=== PATIENT | female | born 1975 | race Caucasian/White ===

== ENCOUNTER → 2017-06-16 | Outpatient (CLI) | payer OTHER ==
[~2017-06-16] MED LIST: ACET325; ACET325 PO; ACYC400 PO; ALBIPROI; ALBIPROI INH; ALBU.083IS; ALBU.083IS IH; ALBU3IS INH; ALBU90OI; ALBU90OI INH; ALBU90OI6; ALBU90OI6 INH; AMIT10 PO; AMLO5; AMOCLA875 PO; AMOX500 PO; ANASTRAZOLE PO; ANTOXYBENA BOTHEARS; AZIT250 PO; BACL10 PO; BECL40OI INH; BENZ100A PO; BISA5EC PO; BUSP10; BUSP15 PO; BUSPAR; CEPH500 PO; CHEMO PO; CIME400; CIPR500 PO; CITA20 PO; CLIN300 PO; CLON.1 PO; CLON.2 PO; CLON1; CYCL10 PO; Clonidine HCl0.2 MG PO; Crutch1 EACH MISC; DEXGUASY PO; DIAZ5 PO; DICY20; DICY20 PO; DIPH50 PO; DOXY100 PO; DULO60 PO; EFFEXOR; ERYT.5TO BOTHEYES; ERYT.5TO OS; ESOM20; EXEM25 PO; FAMO20 PO; FLUO20 PO; FLUT220OIA IH; GABA300 PO; GABA400; GABA400 PO; GABA800 PO; GUAI120S1 PO; HYDACE5 PO; HYDCOR2.5C PR; HYDGUAL120 PO; HYDPAM50; HYDPAM50 PO; IBUP200 PO; IBUP600 PO; IBUP800 PO; IPRAIS NEB; KETO10 PO; Keflex500 MG PO; LETR2.5 PO; LORA.5 PO; LORA1 PO; LORA2; LORA2 PO; MAGCIT300 PO; MARIJUANA IN; METPRE4DP PO; METR250 PO; MICO100S VAG; MIRT30; MONT10T; MONT10T PO; NAPR500 PO; NEURONTIN; Naprosyn500 MG PO; OLAN10; OLAN5; OMEP20ER; OMEP20ER PO; OXYACE5T; OXYACE5T PO; OXYC5 PO; PANT40 PO; POLTRIOPSO OS; PRED10 PO; PRED20; PRED20 PO; PROM25; PROM25 PO; PSEU120ER PO; Percocet 10-321 EACH PO; Prednisone20 MG PO; RXCYCL10 PO; RXERYTOPTH OP; RXNEOPOLHC AD; RXOXYACE PO; RXTRAM50 PO; SIMBACORT; SULFAMETHOXAZOLE; SULTRIDS PO; SYMBACORT INHALER; SYMBICORT INH; TAMO10; TAMO10 PO; TOBR.3OPSO BOTHEYES; TRAM50 PO; TRAZ100; TRAZADONE; TRIA80TC TOP; Ultram50 MG PO; VENL75ER; VICODIN 5-3001 EACH; WITHAZ50T TOP; Zithromax250 MG PO; [UNRECOGNIZED DRUG - OTHER] PO
[2017-06-18 04:36] LABS: MDA Not Detected (NOTDET); MDEA Not Detected (NOTDET); MDMA Not Detected (NOTDET)
== END ==
LOC: LAB 15:40
PROVIDERS: Psychiatry & Neurology Psychiatry
DX: F15.10 Other stimulant abuse, uncomplicated (principal)
CPT/HCPCS: G0480

== ENCOUNTER 2017-08-24 19:40 | Emergency (ER) | payer OTHER ==
[~2017-08-24] VITALS: Ht 167.6 cm; Wt 81.7 kg
== END 2017-08-24 21:37 | disposition home or self-care (01) ==
LOC: ER 19:40
DX: F15.10 Other stimulant abuse, uncomplicated (principal); J45.909 Unspecified asthma, uncomplicated; K21.9 Gastro-esophageal reflux disease without esophagitis; F31.9 Bipolar disorder, unspecified; G43.909 Migraine, unspecified, not intractable, without status migrainosus; F17.210 Nicotine dependence, cigarettes, uncomplicated; Z88.0 Allergy status to penicillin; Z88.2 Allergy status to sulfonamides; Z91.040 Latex allergy status; Z88.8 Allergy status to other drugs, medicaments and biological substances; Z79.899 Other long term (current) drug therapy
CPT/HCPCS: 96372; 99283; J1200; J1630; J2060

== ENCOUNTER 2017-12-05 16:13 | Emergency (ER) | payer OTHER ==
[~2017-12-05] VITALS: Ht 167.6 cm; Wt 79.4 kg
== END 2017-12-05 16:58 | disposition home or self-care (01) ==
LOC: ER 16:13
DX: G43.909 Migraine, unspecified, not intractable, without status migrainosus (principal); J45.909 Unspecified asthma, uncomplicated; K21.9 Gastro-esophageal reflux disease without esophagitis; F31.9 Bipolar disorder, unspecified; F17.210 Nicotine dependence, cigarettes, uncomplicated; Z79.899 Other long term (current) drug therapy; Z79.51 Long term (current) use of inhaled steroids
CPT/HCPCS: 96374; 96375; 99283-25; J0780; J1200; J1885

== ENCOUNTER 2019-01-10 15:24 | Emergency (ER) | payer OTHER ==
[~2019-01-10] VITALS: Ht 167.6 cm; Wt 93.0 kg
[2019-01-10] MEDS ORDERED: Mupirocin22 GM PO (16:11)
[2019-01-10] MEDS ORDERED: Vibramycin100 MG PO (16:11)
== END 2019-01-10 16:30 | disposition home or self-care (01) ==
LOC: ER 15:24
DX: H93.8X1 Other specified disorders of right ear (principal); J45.909 Unspecified asthma, uncomplicated; F43.10 Post-traumatic stress disorder, unspecified; F31.9 Bipolar disorder, unspecified; Z85.3 Personal history of malignant neoplasm of breast; Z87.891 Personal history of nicotine dependence; Z88.8 Allergy status to other drugs, medicaments and biological substances; Z88.1 Allergy status to other antibiotic agents; Z88.0 Allergy status to penicillin; Z91.048 Other nonmedicinal substance allergy status; Z91.040 Latex allergy status; Z88.2 Allergy status to sulfonamides; Z91.018 Allergy to other foods; Z79.899 Other long term (current) drug therapy; Z79.52 Long term (current) use of systemic steroids
CPT/HCPCS: 99282

== ENCOUNTER 2019-01-20 15:17 | Emergency (ER) | payer OTHER ==
[~2019-01-20] VITALS: Ht 167.6 cm; Wt 90.7 kg
[~2019-01-20 15:17] MED LIST changes: +Mupirocin22 GM PO; +Vibramycin100 MG PO
[2019-01-20 15:57] LABS: Source, Urine Clean Catch
[2019-01-20 16:02] LABS: BASOPHILS ABSOLUTE AUTO 0.04 K/mm3 (0.00-0.23); BASOPHILS PERCENT AUTO 0 % (0-2); EOSINOPHILS ABSOLUTE AUTO 0.08 K/mm3 (0.00-0.68); EOSINOPHILS PERCENT AUTO 1 % (0-6); Hemoglobin 14.2 g/dL (11.5-16.0); IMMATURE GRAN PERCENT AUTO 1 % (0-1); LYMPHOCYTES ABSOLUTE AUTO 3.09 K/mm3 (0.84-5.20); LYMPHOCYTES PERCENT AUTO 18 % (21-46); MONOCYTES ABSOLUTE AUTO 1.09 K/mm3 (0.16-1.47); MONOCYTES PERCENT AUTO 6 % (4-13); Mean Corpuscular HGB 29.8 pg (26.0-34.0); Mean Corpuscular Volume 90 fL (80-100); Mean Platelet Volume 9.6 fL (9.1-12.4); NEUTROPHILS ABSOLUTE AUTO 13.08 K/mm3 (1.96-9.15); NEUTROPHILS PERCENT AUTO 75 % (41-73); Platelet Count 363 K/mm3 (150-400); RDW Coefficient Variation 14.3 % (11.7-14.2); RDW Standard Deviation 47.3 fL (35.1-46.3); Red Blood Cell Count 4.77 M/mm3 (3.80-5.20); White Blood Cell Count 17.48 K/mm3 (4.00-11.30)
[2019-01-20 16:07] LABS: Bilirubin, Urine Neg (Neg); Blood, Urine 1+ (Neg); Glucose Qualitative, Urine Neg (Neg); Ketones, Urine 2+ (Neg); Leukocyte Esterase, Urine Neg (Neg); Nitrite, Urine Neg (Neg); Protein, Urine 1+ (Neg); Urobilinogen, Urine NORM (Normal)
[2019-01-20 16:34] LABS: Appearance, Urine Hazy (Clear); Color, Urine Yellow (P-Yellow)
[2019-01-20 16:38] LABS: Alanine Aminotransfer (ALT/SGP 19 U/L (12-78); Albumin, Blood 3.8 g/dL (3.4-5.0); Albumin/Globulin Ratio 0.9 (0.8-1.8); Alk Phos 181 U/L (50-136); Anion Gap 8 mmol/L (6-16); Aspartate Aminotrans (AST/SGOT 14 U/L (12-37); Bilirubin, Total 0.5 mg/dL (0.1-1.0); Blood Urea Nitrogen 11 mg/dL (8-24); Bun/Creatinine Ratio 15.2 (12.0-20.0); CO2, Blood 21 mmol/L (21-32); Calcium, Blood 9.5 mg/dL (8.5-10.1); Chloride, Blood 110 mmol/L (98-108); Creatinine, Blood 0.72 mg/dL (0.40-1.00); Globulin, Blood 4.4 g/dL (2.2-4.0); Glomerular Filtration Rate >60 (60-); Glucose, Blood 148 mg/dL (70-99); Potassium, Blood 3.1 mmol/L (3.5-5.5); Sodium, Blood 139 mmol/L (136-145); Total Protein, Blood 8.2 g/dL (6.4-8.2)
[2019-01-20 16:40] LABS: Bacteria Many /hpf; Squamous Epithelial Cells Mod /hpf (Few); White Blood Cells, Urine 0-2 /hpf (0-5)
[2019-01-20 16:41] LABS: Amorphous Light (0-Heavy); Mucus Light (0-Heavy)
[2019-01-20 18:49] LABS: LDL Direct Measurement 84 mg/dL (0-130); Lactate Dehydrogenase (Ld),Bld 181 U/L (100-240); Triglycerides 80 mg/dL (30-160)
[2019-01-20] MEDS ORDERED: ONDA8 MM (19:12)
[2019-01-20] MEDS ORDERED: Roxicodone5 MG PO ×2 (19:12→19:23)
== END 2019-01-20 19:28 | disposition home or self-care (01) ==
LOC: ER 15:17
PROVIDERS: Emergency Medicine; Physician Assistant
DX: K85.90 Acute pancreatitis without necrosis or infection, unspecified (principal); E87.6 Hypokalemia; J45.909 Unspecified asthma, uncomplicated; F17.200 Nicotine dependence, unspecified, uncomplicated; Z85.3 Personal history of malignant neoplasm of breast; Z88.8 Allergy status to other drugs, medicaments and biological substances; Z88.1 Allergy status to other antibiotic agents; Z88.0 Allergy status to penicillin; Z91.040 Latex allergy status; Z88.2 Allergy status to sulfonamides; Z91.02 Food additives allergy status; Z79.899 Other long term (current) drug therapy
CPT/HCPCS: 74177; 80053; 81001; 81025; 83615; 83690; 83721; 83735; 84478; 85025; 87086; 96374; 99284-25; J2405; Q9967

== ENCOUNTER 2019-01-22 14:13 | Emergency (ER) | payer OTHER ==
[~2019-01-22] VITALS: Ht 167.6 cm; Wt 90.7 kg
[~2019-01-22 14:13] MED LIST changes: +ONDA8 MM; +Roxicodone5 MG PO
[2019-01-22 14:57] LABS: BASOPHILS ABSOLUTE AUTO 0.04 K/mm3 (0.00-0.23); BASOPHILS PERCENT AUTO 0 % (0-2); EOSINOPHILS ABSOLUTE AUTO 0.12 K/mm3 (0.00-0.68); EOSINOPHILS PERCENT AUTO 1 % (0-6); Hematocrit 40.6 % (33.0-51.0); Hemoglobin 13.4 g/dL (11.5-16.0); IMMATURE GRAN ABSOLUTE AUTO 0.06 K/mm3 (0.00-0.10); IMMATURE GRAN PERCENT AUTO 0 % (0-1); LYMPHOCYTES ABSOLUTE AUTO 2.11 K/mm3 (0.84-5.20); LYMPHOCYTES PERCENT AUTO 13 % (21-46); MONOCYTES ABSOLUTE AUTO 1.22 K/mm3 (0.16-1.47); MONOCYTES PERCENT AUTO 7 % (4-13); Mean Corpuscular HGB 29.6 pg (26.0-34.0); Mean Corpuscular Volume 90 fL (80-100); Mean Platelet Volume 9.5 fL (9.1-12.4); NEUTROPHILS ABSOLUTE AUTO 12.93 K/mm3 (1.96-9.15); NEUTROPHILS PERCENT AUTO 79 % (41-73); Platelet Count 312 K/mm3 (150-400); RDW Coefficient Variation 14.3 % (11.7-14.2); Red Blood Cell Count 4.52 M/mm3 (3.80-5.20); White Blood Cell Count 16.48 K/mm3 (4.00-11.30)
[2019-01-22 15:14] LABS: Alanine Aminotransfer (ALT/SGP 30 U/L (12-78); Albumin, Blood 3.5 g/dL (3.4-5.0); Albumin/Globulin Ratio 0.7 (0.8-1.8); Alk Phos 195 U/L (50-136); Anion Gap 6 mmol/L (6-16); Aspartate Aminotrans (AST/SGOT 22 U/L (12-37); Bilirubin, Total 0.5 mg/dL (0.1-1.0); Blood Urea Nitrogen 10 mg/dL (8-24); Bun/Creatinine Ratio 13.7 (12.0-20.0); CO2, Blood 26 mmol/L (21-32); Calcium, Blood 8.9 mg/dL (8.5-10.1); Chloride, Blood 101 mmol/L (98-108); Creatinine, Blood 0.73 mg/dL (0.40-1.00); Globulin, Blood 4.7 g/dL (2.2-4.0); Glomerular Filtration Rate >60 (60-); Glucose, Blood 180 mg/dL (70-99); Potassium, Blood 2.7 mmol/L (3.5-5.5); Sodium, Blood 133 mmol/L (136-145); Total Protein, Blood 8.2 g/dL (6.4-8.2)
[2019-01-22] MEDS ORDERED: Zofran8 MG PO (19:03)
[2019-01-22] MEDS ORDERED: Percocet 5-3251 EACH PO (19:03)
== END 2019-01-22 19:45 | disposition home or self-care (01) ==
LOC: ER 14:13
PROVIDERS: Physician Assistant
DX: K85.90 Acute pancreatitis without necrosis or infection, unspecified (principal); J45.909 Unspecified asthma, uncomplicated; K21.9 Gastro-esophageal reflux disease without esophagitis; F31.9 Bipolar disorder, unspecified; F43.10 Post-traumatic stress disorder, unspecified; Z85.3 Personal history of malignant neoplasm of breast; Z87.891 Personal history of nicotine dependence; Z88.8 Allergy status to other drugs, medicaments and biological substances; Z88.1 Allergy status to other antibiotic agents; Z88.0 Allergy status to penicillin; Z91.048 Other nonmedicinal substance allergy status; Z91.040 Latex allergy status; Z88.2 Allergy status to sulfonamides; Z91.02 Food additives allergy status; Z79.899 Other long term (current) drug therapy
CPT/HCPCS: 36415; 80053; 83690; 85025; 96374; 96375; 99284-25; A9270; A9270-GY; J1170; J2550; J7120

== ENCOUNTER → 2019-02-03 | Outpatient (CLI) | payer OTHER ==
[~2019-02-03] MED LIST changes: +Percocet 5-3251 EACH PO; +Zofran8 MG PO
== END | disposition home or self-care (01) ==
LOC: LAB SHORT 09:46 → LAB UCHC 09:46 → EDSTATUS 02-02 12:25 → LAB FUT 02-02 12:25
DX: K85.90 Acute pancreatitis without necrosis or infection, unspecified (principal); R19.7 Diarrhea, unspecified
CPT/HCPCS: 87493

== ENCOUNTER 2019-02-13 19:11 | Emergency (ER) | payer OTHER ==
[~2019-02-13] VITALS: Ht 167.6 cm; Wt 90.7 kg
[2019-02-13 19:55] LABS: Source, Urine Clean Catch
[2019-02-13 19:59] LABS: BASOPHILS ABSOLUTE AUTO 0.04 K/mm3 (0.00-0.23); BASOPHILS PERCENT AUTO 1 % (0-2); EOSINOPHILS ABSOLUTE AUTO 0.16 K/mm3 (0.00-0.68); EOSINOPHILS PERCENT AUTO 2 % (0-6); Hematocrit 39.5 % (33.0-51.0); Hemoglobin 12.7 g/dL (11.5-16.0); IMMATURE GRAN ABSOLUTE AUTO 0.01 K/mm3 (0.00-0.10); IMMATURE GRAN PERCENT AUTO 0 % (0-1); LYMPHOCYTES ABSOLUTE AUTO 2.87 K/mm3 (0.84-5.20); LYMPHOCYTES PERCENT AUTO 34 % (21-46); MONOCYTES ABSOLUTE AUTO 0.61 K/mm3 (0.16-1.47); MONOCYTES PERCENT AUTO 7 % (4-13); Mean Corpuscular HGB 29.3 pg (26.0-34.0); Mean Corpuscular HGB Conc 32.2 g/dL (31.5-36.5); Mean Corpuscular Volume 91 fL (80-100); Mean Platelet Volume 9.7 fL (9.1-12.4); NEUTROPHILS ABSOLUTE AUTO 4.77 K/mm3 (1.96-9.15); NEUTROPHILS PERCENT AUTO 56 % (41-73); Platelet Count 327 K/mm3 (150-400); RDW Coefficient Variation 14.4 % (11.7-14.2); Red Blood Cell Count 4.33 M/mm3 (3.80-5.20); White Blood Cell Count 8.46 K/mm3 (4.00-11.30)
[2019-02-13 20:00] LABS: Bilirubin, Urine Neg (Neg); Blood, Urine Neg (Neg); Glucose Qualitative, Urine Neg (Neg); Ketones, Urine Neg (Neg); Leukocyte Esterase, Urine Neg (Neg); Nitrite, Urine Neg (Neg); Protein, Urine Neg (Neg); Specific Gravity, Urine 1.005 (1.003-1.022); Urobilinogen, Urine NORM (Normal)
[2019-02-13 20:02] LABS: Appearance, Urine Clear (Clear); Color, Urine Yellow (P-Yellow)
[2019-02-13 20:18] LABS: Alanine Aminotransfer (ALT/SGP 46 U/L (12-78); Albumin, Blood 3.8 g/dL (3.4-5.0); Albumin/Globulin Ratio 0.9 (0.8-1.8); Alk Phos 149 U/L (50-136); Anion Gap 7 mmol/L (6-16); Aspartate Aminotrans (AST/SGOT 31 U/L (12-37); Bilirubin, Total 0.3 mg/dL (0.1-1.0); Blood Urea Nitrogen 10 mg/dL (8-24); Bun/Creatinine Ratio 11.9 (12.0-20.0); CO2, Blood 22 mmol/L (21-32); Calcium, Blood 9.1 mg/dL (8.5-10.1); Chloride, Blood 108 mmol/L (98-108); Creatinine, Blood 0.84 mg/dL (0.40-1.00); Globulin, Blood 4.1 g/dL (2.2-4.0); Glomerular Filtration Rate >60 (60-); Glucose, Blood 114 mg/dL (70-99); Potassium, Blood 3.2 mmol/L (3.5-5.5); Sodium, Blood 137 mmol/L (136-145); Total Protein, Blood 7.9 g/dL (6.4-8.2)
[2019-02-13 20:45] LABS: Troponin I <0.015 ng/mL (0.000-0.040)
== END 2019-02-14 00:35 | disposition home or self-care (01) ==
LOC: ER 19:11
PROVIDERS: Physician Assistant
DX: K85.90 Acute pancreatitis without necrosis or infection, unspecified (principal); J45.909 Unspecified asthma, uncomplicated; F17.210 Nicotine dependence, cigarettes, uncomplicated; Z85.3 Personal history of malignant neoplasm of breast; Z88.8 Allergy status to other drugs, medicaments and biological substances; Z88.1 Allergy status to other antibiotic agents; Z88.0 Allergy status to penicillin; Z91.048 Other nonmedicinal substance allergy status; Z91.040 Latex allergy status; Z79.899 Other long term (current) drug therapy
CPT/HCPCS: 36415; 76705; 80053; 81003; 81025; 83690; 84484; 85025; 93005; 93010; 96361; 96374; 99284-25; A9270; J2270; J7030

== ENCOUNTER → 2019-10-05 | Outpatient (CLI) | payer OTHER ==
[2019-10-05 12:21] LABS: Adenovirus F 40/41 Not Detected (NOT DETECT); Astrovirus Not Detected (NOT DETECT); Campylobacter Sp Not Detected (NOT DETECT); Cryptosporidium Not Detected (NOT DETECT); Cyclospora Cayetanensis Not Detected (NOT DETECT); E. Coli O157 Not Detected (NOT DETECT); Entamoeba Histolytica Not Detected (NOT DETECT); Enteroaggregative E. coli-EAEC Not Detected (NOT DETECT); Enteropathogenic E. coli-EPEC Not Detected (NOT DETECT); Enterotoxigenic E. coli-ETEC Not Detected (NOT DETECT); Giardia Lamblia Not Detected (NOT DETECT); Norovirus GI/GII Not Detected (NOT DETECT); Plesiomonas Shigelloides Not Detected (NOT DETECT); Rotavirus A Not Detected (NOT DETECT); Salmonella Sp Not Detected (NOT DETECT); Sapovirus Not Detected (NOT DETECT); Shiga Toxin-prod E. coli-STEC Not Detected (NOT DETECT); Shigella/Enteroin E. coli-EIEC Not Detected (NOT DETECT); Vibrio Cholerae Not Detected (NOT DETECT); Vibrio Sp Not Detected (NOT DETECT); Yersinia Enterocolitica Not Detected (NOT DETECT)
== END | disposition home or self-care (01) ==
LOC: LAB 09:27 → LAB SHORT 09:27 → LAB FUT 10-03 17:45
PROVIDERS: Physician Assistant
DX: R10.13 Epigastric pain (principal)
CPT/HCPCS: 0097U; 87338

== ENCOUNTER 2019-10-11 17:09 | Emergency (ER) | payer OTHER ==
[~2019-10-11] VITALS: Ht 167.6 cm; Wt 90.7 kg
[2019-10-11 18:09] LABS: BASOPHILS ABSOLUTE AUTO 0.08 K/mm3 (0.00-0.23); BASOPHILS PERCENT AUTO 1 % (0-2); EOSINOPHILS ABSOLUTE AUTO 0.26 K/mm3 (0.00-0.68); EOSINOPHILS PERCENT AUTO 2 % (0-6); Hematocrit 41.1 % (33.0-51.0); Hemoglobin 13.2 g/dL (11.5-16.0); IMMATURE GRAN ABSOLUTE AUTO 0.08 K/mm3 (0.00-0.10); IMMATURE GRAN PERCENT AUTO 1 % (0-1); LYMPHOCYTES PERCENT AUTO 27 % (21-46); MONOCYTES ABSOLUTE AUTO 1.02 K/mm3 (0.16-1.47); MONOCYTES PERCENT AUTO 6 % (4-13); Mean Corpuscular HGB 29.1 pg (26.0-34.0); Mean Corpuscular HGB Conc 32.1 g/dL (31.5-36.5); Mean Corpuscular Volume 91 fL (80-100); Mean Platelet Volume 9.3 fL (9.1-12.4); NEUTROPHILS ABSOLUTE AUTO 11.29 K/mm3 (1.96-9.15); NEUTROPHILS PERCENT AUTO 64 % (41-73); Platelet Count 390 K/mm3 (150-400); RDW Coefficient Variation 14.5 % (11.7-14.2); RDW Standard Deviation 47.9 fL (35.1-46.3); Red Blood Cell Count 4.53 M/mm3 (3.80-5.20); White Blood Cell Count 17.53 K/mm3 (4.00-11.30)
[2019-10-11] MEDS ORDERED: CLON.5 PO (18:30)
[2019-10-11 18:38] LABS: Alanine Aminotransfer (ALT/SGP 28 U/L (12-78); Albumin, Blood 4.2 g/dL (3.4-5.0); Alk Phos 158 U/L (50-136); Anion Gap 10 mmol/L (6-16); Aspartate Aminotrans (AST/SGOT 20 U/L (12-37); Bilirubin, Total 0.3 mg/dL (0.1-1.0); Blood Urea Nitrogen 6 mg/dL (8-24); Bun/Creatinine Ratio 6.7 (12.0-20.0); CO2, Blood 21 mmol/L (21-32); Calcium, Blood 8.8 mg/dL (8.5-10.1); Chloride, Blood 103 mmol/L (98-108); Creatinine, Blood 0.89 mg/dL (0.40-1.00); Globulin, Blood 4.4 g/dL (2.2-4.0); Glomerular Filtration Rate >60 (60-); Glucose, Blood 130 mg/dL (70-99); Potassium, Blood 3.3 mmol/L (3.5-5.5); Sodium, Blood 134 mmol/L (136-145); Total Protein, Blood 8.6 g/dL (6.4-8.2); Troponin I <0.015 ng/mL (0.000-0.040)
[2019-10-11] MEDS ORDERED: TRAM50 PO (20:14)
[2019-10-11] MEDS ORDERED: METPRE4DP PO (20:14)
== END 2019-10-11 20:21 | disposition home or self-care (01) ==
LOC: ER 17:09
PROVIDERS: Physician Assistant
DX: J45.901 Unspecified asthma with (acute) exacerbation (principal); R09.1 Pleurisy; Z85.3 Personal history of malignant neoplasm of breast; F17.210 Nicotine dependence, cigarettes, uncomplicated; Z88.0 Allergy status to penicillin; Z88.2 Allergy status to sulfonamides; Z91.048 Other nonmedicinal substance allergy status; Z91.040 Latex allergy status; Z91.02 Food additives allergy status; Z88.1 Allergy status to other antibiotic agents; Z79.899 Other long term (current) drug therapy
CPT/HCPCS: 36415; 71045; 80053; 83690; 84484; 85025; 85379; 93005; 93010; 94640; 96374; 96375; 99285-25; J1170; J1885; J2405; J2930

== ENCOUNTER → 2020-02-07 | Outpatient (CLI) | payer OTHER ==
[~2020-02-07] MED LIST changes: +ALBUTEROL0.63 MG/3 NEB; +ATOR40TA PO; +Adalat/Procardi20 MG PO; +CLON.5 PO; +CREON DR 12,001 EACH PO; +CREON DR 24,001 EACH PO; +CYCLOBENZAPRINE5 MG PO; +HYDR1TAB94 PO; +Imitrex100 MG PO; +Lisinopril2.5 MG PO; +Loratadine10 MG PO; +Nicoderm Cq1 EAC1 TOP; +Norco 7.5-3251 EACH PO; +ONDA4ODT MM; +ONDA4ODT SL; +POTCHL20ER PO; +RISP.25 PO; +RISP.5 PO; +TOPI100 PO; +TOPI25 PO
[2020-02-08 06:14] LABS: Stool Occult Bld Immuno 1 Negative (NEGATIVE)
== END | disposition home or self-care (01) ==
LOC: LAB SHORT 13:33 → LAB 13:33
PROVIDERS: Physician Assistant
DX: R10.13 Epigastric pain (principal)
CPT/HCPCS: G0328

== ENCOUNTER 2020-02-23 18:23 | Observation (INO) | payer OTHER ==
[~2020-02-23] VITALS: Ht 167.6 cm; Wt 82.2 kg
[~2020-02-23 18:23] MED LIST changes: -CREON DR 24,001 EACH PO
[2020-02-23 19:07] LABS: BASOPHILS ABSOLUTE AUTO 0.06 K/mm3 (0.00-0.23); BASOPHILS PERCENT AUTO 0 % (0-2); EOSINOPHILS ABSOLUTE AUTO 0.34 K/mm3 (0.00-0.68); EOSINOPHILS PERCENT AUTO 2 % (0-6); Hematocrit 40.6 % (33.0-51.0); IMMATURE GRAN ABSOLUTE AUTO 0.05 K/mm3 (0.00-0.10); IMMATURE GRAN PERCENT AUTO 0 % (0-1); LYMPHOCYTES ABSOLUTE AUTO 3.79 K/mm3 (0.84-5.20); LYMPHOCYTES PERCENT AUTO 25 % (21-46); MONOCYTES PERCENT AUTO 5 % (4-13); Mean Corpuscular HGB 28.9 pg (26.0-34.0); Mean Corpuscular Volume 90 fL (80-100); Mean Platelet Volume 9.8 fL (9.1-12.4); NEUTROPHILS ABSOLUTE AUTO 10.01 K/mm3 (1.96-9.15); NEUTROPHILS PERCENT AUTO 67 % (41-73); Platelet Count 421 K/mm3 (150-400); RDW Standard Deviation 53.6 fL (35.1-46.3); White Blood Cell Count 15.05 K/mm3 (4.00-11.30)
[2020-02-23 19:42] LABS: Magnesium, Blood 0.8 mg/dL (1.6-2.4); Phosphorus, Blood 2.4 mg/dL (2.5-4.9)
--- NOTE | 2020-02-24 04:05 | NUR ---
COOK'S ASSISTANT SUMMARY PT RECEIVED FROM THE ED W KCL AND MAGNESIUM RUNNING. PT SATED THAT SHE WAS STILL HAVING CRAMPS AROUND HER RIBCAGE BUT THAT IT WAS GETTING BETTER. PT RECEIVED 2100 MEDS AND WENT TO BED. PT SLEPT COMFORTABLY W CALL LIGHT IN PLACE. PT IS AXO X4, PLEASANT AND COOPERATIVE.
[2020-02-24 05:49] LABS: Anion Gap 8 mmol/L (6-16); Blood Urea Nitrogen 6 mg/dL (8-24); Bun/Creatinine Ratio 9.5 (12.0-20.0); CO2, Blood 20 mmol/L (21-32); Calcium, Blood 7.7 mg/dL (8.5-10.1); Chloride, Blood 117 mmol/L (98-108); Creatinine, Blood 0.63 mg/dL (0.40-1.00); Glomerular Filtration Rate >60 (60-); Glucose, Blood 138 mg/dL (70-99); Potassium, Blood 3.8 mmol/L (3.5-5.5); Sodium, Blood 145 mmol/L (136-145)
[2020-02-24 06:38] LABS: Magnesium, Blood 2.3 mg/dL (1.6-2.4); Phosphorus, Blood 2.9 mg/dL (2.5-4.9)
[2020-02-24] MEDS ORDERED: CREON DR 24,001 EACH PO (09:17)
--- NOTE | 2020-02-24 13:30 | NUR ---
PT AWAKE AT START OF SHIFT. PLEASANT AND CO-OP. INDEPENDENT IN RM. ADMITTED FOR HYPOMAGNEMIA R/T DIARRHEA; RESOLVED. PT WITH CHRONIC PANCREATITIS, WAITING FOR OUTPT SX APPOINTMENT. DR LIU IN TO SEE PT; NO C/O. PT TO D/C HOME TODAY. DR TOLENTINO IN TO SEE PT. DISCUSSED HOME MANAGEMENT OF DIARRHEA AND CALLING PCP FOR ANY NEEDED LABS OR PO ELECTROLYTES, BEFORE CRITICAL STAGE. PT VERBALIZED UNDERSTANDING. NO NEW HOME MEDS ORDERED. D/C INSTRUCTIONS GIVEN. PT ASSISTED OUT TO CAR VIA W/C.
== END 2020-02-24 13:09 | disposition home or self-care (01) ==
LOC: ER 18:23 → MEDS 18:24 → ENPENDDIS 02-24 11:17 → MEDS 02-24 13:09
PROVIDERS: Internal Medicine; Physician Assistant; ADMIT Hospitalist
DX: E83.42 Hypomagnesemia (principal); R25.2 Cramp and spasm; E83.51 Hypocalcemia; K86.1 Other chronic pancreatitis; K52.9 Noninfective gastroenteritis and colitis, unspecified; J45.909 Unspecified asthma, uncomplicated; K21.9 Gastro-esophageal reflux disease without esophagitis; G43.909 Migraine, unspecified, not intractable, without status migrainosus; F43.10 Post-traumatic stress disorder, unspecified; F17.210 Nicotine dependence, cigarettes, uncomplicated; E78.5 Hyperlipidemia, unspecified; F31.89 Other bipolar disorder; E11.42 Type 2 diabetes mellitus with diabetic polyneuropathy; I10 Essential (primary) hypertension; M54.30 Sciatica, unspecified side; Z85.3 Personal history of malignant neoplasm of breast; Z90.13 Acquired absence of bilateral breasts and nipples; Z90.49 Acquired absence of other specified parts of digestive tract; Z88.0 Allergy status to penicillin; Z88.1 Allergy status to other antibiotic agents; Z88.2 Allergy status to sulfonamides; Z91.040 Latex allergy status; Z91.02 Food additives allergy status; Z88.8 Allergy status to other drugs, medicaments and biological substances; Z91.048 Other nonmedicinal substance allergy status; Z91.041 Radiographic dye allergy status; Z79.899 Other long term (current) drug therapy; Z23 Encounter for immunization
CPT/HCPCS: 36415; 80048; 82330; 82947; 83735; 84100; 85025; 93005; 93010; 94760; 96365; 96366; 96367; 96368; 96372; 99284-25; A9270-GY; G0008; G0378; J1650; J3475; J3480; J7030; J7060; Q2038

== ENCOUNTER 2020-03-19 19:23 | Emergency (ER) | payer OTHER ==
[~2020-03-19] VITALS: Ht 167.6 cm; Wt 81.7 kg
[~2020-03-19 19:23] MED LIST changes: +CREON DR 24,001 EACH PO
[2020-03-19 20:08] LABS: BASOPHILS ABSOLUTE AUTO 0.04 K/mm3 (0.00-0.23); BASOPHILS PERCENT AUTO 0 % (0-2); EOSINOPHILS ABSOLUTE AUTO 0.52 K/mm3 (0.00-0.68); EOSINOPHILS PERCENT AUTO 4 % (0-6); Hematocrit 36.8 % (33.0-51.0); Hemoglobin 12.1 g/dL (11.5-16.0); IMMATURE GRAN ABSOLUTE AUTO 0.04 K/mm3 (0.00-0.10); IMMATURE GRAN PERCENT AUTO 0 % (0-1); LYMPHOCYTES ABSOLUTE AUTO 3.84 K/mm3 (0.84-5.20); LYMPHOCYTES PERCENT AUTO 31 % (21-46); MONOCYTES ABSOLUTE AUTO 0.72 K/mm3 (0.16-1.47); MONOCYTES PERCENT AUTO 6 % (4-13); Mean Corpuscular HGB 29.4 pg (26.0-34.0); Mean Corpuscular HGB Conc 32.9 g/dL (31.5-36.5); Mean Corpuscular Volume 90 fL (80-100); Mean Platelet Volume 9.9 fL (9.1-12.4); NEUTROPHILS ABSOLUTE AUTO 7.06 K/mm3 (1.96-9.15); NEUTROPHILS PERCENT AUTO 58 % (41-73); Platelet Count 333 K/mm3 (150-400); RDW Coefficient Variation 16.1 % (11.7-14.2); Red Blood Cell Count 4.11 M/mm3 (3.80-5.20); White Blood Cell Count 12.22 K/mm3 (4.00-11.30)
[2020-03-19 20:26] LABS: Alanine Aminotransfer (ALT/SGP 17 U/L (12-78); Albumin, Blood 3.3 g/dL (3.4-5.0); Albumin/Globulin Ratio 0.8 (0.8-1.8); Alk Phos 164 U/L (50-136); Anion Gap 9 mmol/L (6-16); Aspartate Aminotrans (AST/SGOT 13 U/L (12-37); Bilirubin, Total 0.3 mg/dL (0.1-1.0); Blood Urea Nitrogen 9 mg/dL (8-24); Bun/Creatinine Ratio 11.8 (12.0-20.0); CO2, Blood 24 mmol/L (21-32); Calcium, Blood 8.3 mg/dL (8.5-10.1); Chloride, Blood 110 mmol/L (98-108); Creatinine, Blood 0.76 mg/dL (0.40-1.00); Globulin, Blood 3.9 g/dL (2.2-4.0); Glomerular Filtration Rate >60 (60-); Glucose, Blood 174 mg/dL (70-99); Potassium, Blood 3.1 mmol/L (3.5-5.5); Sodium, Blood 143 mmol/L (136-145); Total Protein, Blood 7.2 g/dL (6.4-8.2)
[2020-03-19 22:51] LABS: Anion Gap 7 mmol/L (6-16); Blood Urea Nitrogen 9 mg/dL (8-24); Bun/Creatinine Ratio 12.6 (12.0-20.0); CO2, Blood 22 mmol/L (21-32); Calcium, Blood 8.6 mg/dL (8.5-10.1); Chloride, Blood 112 mmol/L (98-108); Creatinine, Blood 0.71 mg/dL (0.40-1.00); Glomerular Filtration Rate >60 (60-); Glucose, Blood 116 mg/dL (70-99); Magnesium, Blood 2.2 mg/dL (1.6-2.4); Potassium, Blood 4.2 mmol/L (3.5-5.5); Sodium, Blood 141 mmol/L (136-145)
[2020-03-19] MEDS ORDERED: MAGNESIUM OXID400 M1 PO (23:03)
== END 2020-03-19 23:33 | disposition home or self-care (01) ==
LOC: ER 19:23
PROVIDERS: Emergency Medicine
DX: E87.6 Hypokalemia (principal); E83.42 Hypomagnesemia; K52.9 Noninfective gastroenteritis and colitis, unspecified; K21.9 Gastro-esophageal reflux disease without esophagitis; F31.9 Bipolar disorder, unspecified; E11.9 Type 2 diabetes mellitus without complications; J44.9 Chronic obstructive pulmonary disease, unspecified; F17.210 Nicotine dependence, cigarettes, uncomplicated; Z79.899 Other long term (current) drug therapy; Z88.8 Allergy status to other drugs, medicaments and biological substances; Z88.0 Allergy status to penicillin; Z91.09 Other allergy status, other than to drugs and biological substances; Z91.040 Latex allergy status; Z88.2 Allergy status to sulfonamides; Z91.041 Radiographic dye allergy status
CPT/HCPCS: 36415; 80048; 80053; 83690; 83735; 85025; 93005; 93010; 96365; 96366; 99283-25; A9270; J3475

== ENCOUNTER 2020-05-22 08:14 | Emergency (ER) | payer OTHER ==
[~2020-05-22] VITALS: Ht 167.6 cm; Wt 81.7 kg
[~2020-05-22 08:14] MED LIST changes: +MAGNESIUM OXID400 M1 PO
[2020-05-22] MEDS ORDERED: Chantix1 MG PO (08:33)
[2020-05-22 08:56] LABS: BASOPHILS ABSOLUTE AUTO 0.05 K/mm3 (0.00-0.23); BASOPHILS PERCENT AUTO 1 % (0-2); EOSINOPHILS ABSOLUTE AUTO 0.33 K/mm3 (0.00-0.68); EOSINOPHILS PERCENT AUTO 4 % (0-6); Hematocrit 39.3 % (33.0-51.0); IMMATURE GRAN ABSOLUTE AUTO 0.02 K/mm3 (0.00-0.10); IMMATURE GRAN PERCENT AUTO 0 % (0-1); LYMPHOCYTES ABSOLUTE AUTO 2.61 K/mm3 (0.84-5.20); LYMPHOCYTES PERCENT AUTO 33 % (21-46); MONOCYTES ABSOLUTE AUTO 0.63 K/mm3 (0.16-1.47); MONOCYTES PERCENT AUTO 8 % (4-13); Mean Corpuscular HGB Conc 33.1 g/dL (31.5-36.5); Mean Corpuscular Volume 91 fL (80-100); Mean Platelet Volume 9.5 fL (9.1-12.4); NEUTROPHILS ABSOLUTE AUTO 4.24 K/mm3 (1.96-9.15); NEUTROPHILS PERCENT AUTO 54 % (41-73); Platelet Count 342 K/mm3 (150-400); RDW Coefficient Variation 15.8 % (11.7-14.2); RDW Standard Deviation 52.1 fL (35.1-46.3); Red Blood Cell Count 4.34 M/mm3 (3.80-5.20); White Blood Cell Count 7.88 K/mm3 (4.00-11.30)
[2020-05-22 09:17] LABS: Alanine Aminotransfer (ALT/SGP 26 U/L (12-78); Albumin, Blood 3.6 g/dL (3.4-5.0); Albumin/Globulin Ratio 0.8 (0.8-1.8); Alk Phos 151 U/L (50-136); Anion Gap 11 mmol/L (6-16); Aspartate Aminotrans (AST/SGOT 18 U/L (12-37); Bilirubin, Total 0.2 mg/dL (0.1-1.0); Blood Urea Nitrogen 9 mg/dL (8-24); Bun/Creatinine Ratio 14.7 (12.0-20.0); CO2, Blood 19 mmol/L (21-32); Calcium, Blood 8.9 mg/dL (8.5-10.1); Chloride, Blood 104 mmol/L (98-108); Creatinine, Blood 0.61 mg/dL (0.40-1.00); Globulin, Blood 4.3 g/dL (2.2-4.0); Glomerular Filtration Rate >60 (60-); Glucose, Blood 291 mg/dL (70-99); Magnesium, Blood 1.8 mg/dL (1.6-2.4); Potassium, Blood 4.2 mmol/L (3.5-5.5); Sodium, Blood 134 mmol/L (136-145); Total Protein, Blood 7.9 g/dL (6.4-8.2)
== END 2020-05-22 10:37 | disposition home or self-care (01) ==
LOC: ER 08:14
PROVIDERS: Emergency Medicine
DX: R25.2 Cramp and spasm (principal); R42 Dizziness and giddiness; J44.9 Chronic obstructive pulmonary disease, unspecified; K21.9 Gastro-esophageal reflux disease without esophagitis; E11.9 Type 2 diabetes mellitus without complications; Z88.0 Allergy status to penicillin; Z88.1 Allergy status to other antibiotic agents; Z91.040 Latex allergy status; Z88.2 Allergy status to sulfonamides; Z88.8 Allergy status to other drugs, medicaments and biological substances; Z91.02 Food additives allergy status; Z91.09 Other allergy status, other than to drugs and biological substances; Z79.899 Other long term (current) drug therapy
CPT/HCPCS: 36415; 80053; 83735; 84100; 85025; 93005; 93010; 99284-25

== ENCOUNTER 2020-06-18 19:29 | Emergency (ER) | payer OTHER ==
[~2020-06-18] VITALS: Ht 167.6 cm; Wt 81.7 kg
[~2020-06-18 19:29] MED LIST changes: +Chantix1 MG PO
[2020-06-18 20:36] LABS: Hematocrit 38.2 % (33.0-51.0); Hemoglobin 12.8 g/dL (11.5-16.0); Mean Corpuscular HGB 29.7 pg (26.0-34.0); Mean Corpuscular HGB Conc 33.5 g/dL (31.5-36.5); Mean Corpuscular Volume 89 fL (80-100); Mean Platelet Volume 9.6 fL (9.1-12.4); Platelet Count 362 K/mm3 (150-400); RDW Coefficient Variation 15.2 % (11.7-14.2); RDW Standard Deviation 49.8 fL (35.1-46.3); Red Blood Cell Count 4.31 M/mm3 (3.80-5.20); White Blood Cell Count 14.07 K/mm3 (4.00-11.30)
[2020-06-18 20:58] LABS: Alanine Aminotransfer (ALT/SGP 23 U/L (12-78); Albumin, Blood 3.9 g/dL (3.4-5.0); Albumin/Globulin Ratio 0.9 (0.8-1.8); Alk Phos 130 U/L (50-136); Anion Gap 7 mmol/L (6-16); Aspartate Aminotrans (AST/SGOT 12 U/L (12-37); Bilirubin, Total 0.3 mg/dL (0.1-1.0); Blood Urea Nitrogen 11 mg/dL (8-24); Bun/Creatinine Ratio 13.8 (12.0-20.0); CO2, Blood 25 mmol/L (21-32); Calcium, Blood 8.5 mg/dL (8.5-10.1); Chloride, Blood 106 mmol/L (98-108); Globulin, Blood 4.2 g/dL (2.2-4.0); Glomerular Filtration Rate >60 (60-); Glucose, Blood 164 mg/dL (70-99); Potassium, Blood 3.3 mmol/L (3.5-5.5); Sodium, Blood 138 mmol/L (136-145); Total Protein, Blood 8.1 g/dL (6.4-8.2)
[2020-06-18 21:03] LABS: Magnesium, Blood 0.7 mg/dL (1.6-2.4)
[2020-06-18 21:36] LABS: BASOPHILS ABSOLUTE MAN 0.14 K/mm3 (0.00-0.23); BASOPHILS PERCENT MAN 1 % (0-2); EOSINOPHILS ABSOLUTE MAN 0.42 K/mm3 (0.00-0.68); EOSINOPHILS PERCENT MAN 3 % (0-6); LYMPHOCYTES ABSOLUTE MAN 3.51 K/mm3 (0.84-5.20); LYMPHOCYTES PERCENT MAN 25 % (21-46); MONOCYTES PERCENT MAN 5 % (4-13); NEUTROPHILS ABSOLUTE MAN 9.28 K/mm3 (1.96-9.15); SEG NEUTROPHILS PERCENT MAN 66 % (41-73); TOTAL CELLS COUNTED 100
[2020-06-18 21:55] LABS: Source, Urine Clean Catch
[2020-06-18 21:56] LABS: Bilirubin, Urine Neg (Neg); Blood, Urine Neg (Neg); Glucose Qualitative, Urine Neg (Neg); Ketones, Urine Neg (Neg); Leukocyte Esterase, Urine Neg (Neg); Nitrite, Urine Neg (Neg); Protein, Urine Neg (Neg); Specific Gravity, Urine 1.005 (1.003-1.022); Urobilinogen, Urine NORM (Normal); pH, Urine 6.5 (5.0-8.0)
[2020-06-18 22:05] LABS: Appearance, Urine Clear (Clear); Color, Urine Pale Yellow (P-Yellow)
[2020-06-19] MEDS ORDERED: HYDR1TAB94 PO (00:57)
[2020-06-19] MEDS ORDERED: ONDA4ODT SL (00:57)
[2020-06-19] MEDS ORDERED: Magnesium500 M1 PO (00:57)
== END 2020-06-19 01:28 | disposition home or self-care (01) ==
LOC: ER 19:29
PROVIDERS: Emergency Medicine; Physician Assistant
DX: K86.1 Other chronic pancreatitis (principal); E83.42 Hypomagnesemia; K21.9 Gastro-esophageal reflux disease without esophagitis; J44.9 Chronic obstructive pulmonary disease, unspecified; E11.9 Type 2 diabetes mellitus without complications; Z79.899 Other long term (current) drug therapy; Z88.0 Allergy status to penicillin; Z91.09 Other allergy status, other than to drugs and biological substances; Z91.040 Latex allergy status; Z88.2 Allergy status to sulfonamides; Z88.1 Allergy status to other antibiotic agents; Z91.02 Food additives allergy status; Z87.891 Personal history of nicotine dependence
CPT/HCPCS: 36415; 71250; 80048; 80053; 81003; 83690; 83735; 85025; 96365; 96366; 96375; 99284-25; J1170; J2405; J3475

== ENCOUNTER 2020-07-31 08:06 | Day surgery (SDC) | payer OTHER ==
[~2020-07-31] VITALS: Ht 167.6 cm; Wt 81.7 kg
[~2020-07-31 08:06] MED LIST changes: +Magnesium500 M1 PO
--- NOTE | 2020-07-31 08:43 | NUR ---
07/31/20 0843 Pepe Cotter History, Chart, Medications and Allergies reviewed before start of procedure.MONITOR INTACT WITH CONTINUOUS PULSE OXIMETRY AND INTERMITTENT BP.3-LEAD EKG REVIEWED WITH PHYSICIAN PRIOR TO START OF PROCEDURE.O2 VIA N/C INTACT THROUGHOUT SEDATION/PROCEDURE. PATIENT DETERMINED TO BE ASA APPROPRIATE FOR PROPOFOL SEDATION PRIOR TO START OF PROCEDURE BY DR. FRIAS.
--- NOTE | 2020-07-31 09:53 | NUR ---
Patient up to Ambulate independently. Gait steady. Discharge instructions reviewed with patient. Patient verbalizes understanding. Copy given to patient to take home. Discharged via wheelchair to private car for ride home WITH
== END 2020-07-31 09:57 | disposition home or self-care (01) ==
LOC: ORSCMMR 08:06 → ORD 09:00 → ORSCMMR 09:57
PROVIDERS: Internal Medicine Gastroenterology
PROC: 0DBN8ZX Excision of Sigmoid Colon, Via Natural or Artificial Opening Endoscopic, Diagnostic (ICD-10-PCS; principal; 2020-07-31 09:00)
PROC: 0DBK8ZX Excision of Ascending Colon, Via Natural or Artificial Opening Endoscopic, Diagnostic (ICD-10-PCS; principal; 2020-07-31 09:00)
PROC: 0DBL8ZX Excision of Transverse Colon, Via Natural or Artificial Opening Endoscopic, Diagnostic (ICD-10-PCS; principal; 2020-07-31 09:00)
DX: R19.7 Diarrhea, unspecified (principal); K57.30 Diverticulosis of large intestine without perforation or abscess without bleeding; E11.9 Type 2 diabetes mellitus without complications; R10.9 Unspecified abdominal pain; F17.210 Nicotine dependence, cigarettes, uncomplicated; Z79.899 Other long term (current) drug therapy
CPT/HCPCS: 82947; 88305; J2250; J2405; J2704; J7120

== ENCOUNTER 2020-12-06 09:30 | Emergency (ER) | payer OTHER ==
[~2020-12-06] VITALS: Ht 167.6 cm; Wt 79.4 kg
[2020-12-06 10:26] LABS: BASOPHILS ABSOLUTE AUTO 0.03 K/mm3 (0.00-0.23); BASOPHILS PERCENT AUTO 0 % (0-2); EOSINOPHILS ABSOLUTE AUTO 0.27 K/mm3 (0.00-0.68); EOSINOPHILS PERCENT AUTO 3 % (0-6); Hemoglobin 12.9 g/dL (11.5-16.0); IMMATURE GRAN ABSOLUTE AUTO 0.01 K/mm3 (0.00-0.10); IMMATURE GRAN PERCENT AUTO 0 % (0-1); LYMPHOCYTES ABSOLUTE AUTO 2.44 K/mm3 (0.84-5.20); LYMPHOCYTES PERCENT AUTO 30 % (21-46); MONOCYTES ABSOLUTE AUTO 0.53 K/mm3 (0.16-1.47); MONOCYTES PERCENT AUTO 6 % (4-13); Mean Corpuscular HGB 28.6 pg (26.0-34.0); Mean Corpuscular HGB Conc 33.1 g/dL (31.5-36.5); Mean Corpuscular Volume 87 fL (80-100); NEUTROPHILS ABSOLUTE AUTO 4.99 K/mm3 (1.96-9.15); NEUTROPHILS PERCENT AUTO 60 % (41-73); Platelet Count 316 K/mm3 (150-400); RDW Standard Deviation 47.4 fL (35.1-46.3); Red Blood Cell Count 4.51 M/mm3 (3.80-5.20); White Blood Cell Count 8.27 K/mm3 (4.00-11.30)
[2020-12-06 13:06] LABS: Alanine Aminotransfer (ALT/SGP 26 U/L (12-78); Albumin, Blood 3.4 g/dL (3.4-5.0); Albumin/Globulin Ratio 0.8 (0.8-1.8); Alk Phos 167 U/L (50-136); Anion Gap 11 mmol/L (6-16); Aspartate Aminotrans (AST/SGOT 12 U/L (12-37); Bilirubin, Total 0.4 mg/dL (0.1-1.0); Blood Urea Nitrogen 6 mg/dL (8-24); Bun/Creatinine Ratio 7.9 (12.0-20.0); CO2, Blood 23 mmol/L (21-32); Calcium, Blood 7.3 mg/dL (8.5-10.1); Chloride, Blood 107 mmol/L (98-108); Creatinine, Blood 0.76 mg/dL (0.40-1.00); Globulin, Blood 4.4 g/dL (2.2-4.0); Glomerular Filtration Rate >60 (60-); Glucose, Blood 211 mg/dL (70-99); Potassium, Blood 3.5 mmol/L (3.5-5.5); Sodium, Blood 141 mmol/L (136-145); Total Protein, Blood 7.8 g/dL (6.4-8.2); Troponin I <0.015 ng/mL (0.000-0.040)
[2020-12-06] MEDS ORDERED: MAGNESIUM OXID500 MG PO (16:35)
[2021-01-06] MEDS ORDERED: ONDA4ODT MM (10:51)
[2021-01-06] MEDS ORDERED: Norco 5-325 Ta1 EACH PO (10:51)
== END 2020-12-06 17:15 | disposition home or self-care (01) ==
LOC: ER 09:30
PROVIDERS: Emergency Medicine
DX: E83.42 Hypomagnesemia (principal); K86.1 Other chronic pancreatitis; K52.9 Noninfective gastroenteritis and colitis, unspecified; R53.83 Other fatigue; K21.9 Gastro-esophageal reflux disease without esophagitis; J44.9 Chronic obstructive pulmonary disease, unspecified; E11.9 Type 2 diabetes mellitus without complications; Z88.8 Allergy status to other drugs, medicaments and biological substances; Z88.1 Allergy status to other antibiotic agents; Z88.0 Allergy status to penicillin; Z91.040 Latex allergy status; Z91.018 Allergy to other foods; Z79.899 Other long term (current) drug therapy; Z91.048 Other nonmedicinal substance allergy status; Z87.891 Personal history of nicotine dependence
CPT/HCPCS: 36415; 71046; 80053; 83690; 83735; 84484; 85025; 93005; 93010; 96365; 96366; 99283-25; A9270; J3475; J7030

== ENCOUNTER 2021-01-10 18:34 | Emergency (ER) | payer OTHER ==
[~2021-01-10] VITALS: Ht 167.6 cm; Wt 79.4 kg
[~2021-01-10 18:34] MED LIST changes: +MAGNESIUM OXID500 MG PO; +Norco 5-325 Ta1 EACH PO
[2021-01-10 18:58] LABS: BASOPHILS ABSOLUTE AUTO 0.04 K/mm3 (0.00-0.23); BASOPHILS PERCENT AUTO 0 % (0-2); EOSINOPHILS PERCENT AUTO 3 % (0-6); Hematocrit 37.8 % (33.0-51.0); Hemoglobin 12.6 g/dL (11.5-16.0); IMMATURE GRAN ABSOLUTE AUTO 0.03 K/mm3 (0.00-0.10); IMMATURE GRAN PERCENT AUTO 0 % (0-1); LYMPHOCYTES ABSOLUTE AUTO 3.98 K/mm3 (0.84-5.20); LYMPHOCYTES PERCENT AUTO 36 % (21-46); MONOCYTES PERCENT AUTO 5 % (4-13); Mean Corpuscular HGB 29.1 pg (26.0-34.0); Mean Corpuscular HGB Conc 33.3 g/dL (31.5-36.5); Mean Corpuscular Volume 87 fL (80-100); Mean Platelet Volume 9.6 fL (9.1-12.4); NEUTROPHILS ABSOLUTE AUTO 6.06 K/mm3 (1.96-9.15); NEUTROPHILS PERCENT AUTO 55 % (41-73); Platelet Count 323 K/mm3 (150-400); RDW Coefficient Variation 15.7 % (11.7-14.2); RDW Standard Deviation 49.8 fL (35.1-46.3); Red Blood Cell Count 4.33 M/mm3 (3.80-5.20); White Blood Cell Count 11.01 K/mm3 (4.00-11.30)
[2021-01-10 19:22] LABS: Alanine Aminotransfer (ALT/SGP 18 U/L (12-78); Albumin, Blood 3.2 g/dL (3.4-5.0); Albumin/Globulin Ratio 0.8 (0.8-1.8); Alk Phos 168 U/L (50-136); Anion Gap 5 mmol/L (6-16); Aspartate Aminotrans (AST/SGOT 21 U/L (12-37); Bilirubin, Total 0.3 mg/dL (0.1-1.0); Blood Urea Nitrogen 5 mg/dL (8-24); Bun/Creatinine Ratio 6.8 (12.0-20.0); CO2, Blood 22 mmol/L (21-32); Calcium, Blood 7.5 mg/dL (8.5-10.1); Chloride, Blood 112 mmol/L (98-108); Creatinine, Blood 0.74 mg/dL (0.40-1.00); Globulin, Blood 4.2 g/dL (2.2-4.0); Glomerular Filtration Rate >60 (60-); Glucose, Blood 205 mg/dL (70-99); Potassium, Blood 3.6 mmol/L (3.5-5.5); Sodium, Blood 139 mmol/L (136-145); Total Protein, Blood 7.4 g/dL (6.4-8.2)
[2021-01-10 21:09] LABS: Troponin I <0.015 ng/mL (0.000-0.040)
[2021-01-10] MEDS ORDERED: ONDA4ODT MM (21:53)
== END 2021-01-10 22:13 | disposition home or self-care (01) ==
LOC: ER 18:34
PROVIDERS: Physician Assistant
DX: K85.90 Acute pancreatitis without necrosis or infection, unspecified (principal); K86.1 Other chronic pancreatitis; J44.9 Chronic obstructive pulmonary disease, unspecified; E11.9 Type 2 diabetes mellitus without complications; K21.9 Gastro-esophageal reflux disease without esophagitis; G43.909 Migraine, unspecified, not intractable, without status migrainosus; Z87.891 Personal history of nicotine dependence; Z79.899 Other long term (current) drug therapy
CPT/HCPCS: 36415; 74177; 80053; 83690; 84484; 85025; 93005; 93010; 96374-59; 96375; 99284-25; A9270; J2405; J3010; J7030; Q9967

== ENCOUNTER 2021-01-16 19:04 | Emergency (ER) | payer OTHER ==
[~2021-01-16] VITALS: Ht 167.6 cm; Wt 76.2 kg
[2021-01-16 20:02] LABS: Alanine Aminotransfer (ALT/SGP 19 U/L (12-78); Albumin, Blood 3.2 g/dL (3.4-5.0); Albumin/Globulin Ratio 0.8 (0.8-1.8); Alk Phos 160 U/L (50-136); Anion Gap 3 mmol/L (6-16); Aspartate Aminotrans (AST/SGOT 15 U/L (12-37); Bilirubin, Total 0.2 mg/dL (0.1-1.0); Blood Urea Nitrogen 10 mg/dL (8-24); Bun/Creatinine Ratio 12.4 (12.0-20.0); CO2, Blood 24 mmol/L (21-32); Calcium, Blood 7.7 mg/dL (8.5-10.1); Chloride, Blood 111 mmol/L (98-108); Globulin, Blood 3.9 g/dL (2.2-4.0); Glomerular Filtration Rate >60 (60-); Glucose, Blood 257 mg/dL (70-99); Potassium, Blood 3.7 mmol/L (3.5-5.5); Sodium, Blood 138 mmol/L (136-145); Total Protein, Blood 7.1 g/dL (6.4-8.2)
[2021-01-16 20:04] LABS: Magnesium, Blood 1.1 mg/dL (1.6-2.4)
== END 2021-01-17 00:22 | disposition home or self-care (01) ==
LOC: ER 19:04
PROVIDERS: Emergency Medicine Emergency Medical Services
DX: E83.42 Hypomagnesemia (principal); E83.51 Hypocalcemia; K21.9 Gastro-esophageal reflux disease without esophagitis; J44.9 Chronic obstructive pulmonary disease, unspecified; E11.9 Type 2 diabetes mellitus without complications; Z88.8 Allergy status to other drugs, medicaments and biological substances; Z88.1 Allergy status to other antibiotic agents; Z88.0 Allergy status to penicillin; Z91.048 Other nonmedicinal substance allergy status; Z88.2 Allergy status to sulfonamides; Z79.899 Other long term (current) drug therapy; Z87.891 Personal history of nicotine dependence
CPT/HCPCS: 36415; 80053; 83735; 96365; 99283-25; J0610; J3475

== ENCOUNTER 2021-01-24 19:03 | Emergency (ER) | payer OTHER ==
[~2021-01-24] VITALS: Ht 167.6 cm; Wt 77.1 kg
[2021-01-24 19:45] LABS: BASOPHILS ABSOLUTE AUTO 0.05 K/mm3 (0.00-0.23); BASOPHILS PERCENT AUTO 0 % (0-2); EOSINOPHILS ABSOLUTE AUTO 0.27 K/mm3 (0.00-0.68); EOSINOPHILS PERCENT AUTO 2 % (0-6); Hematocrit 40.3 % (33.0-51.0); Hemoglobin 13.1 g/dL (11.5-16.0); IMMATURE GRAN ABSOLUTE AUTO 0.03 K/mm3 (0.00-0.10); IMMATURE GRAN PERCENT AUTO 0 % (0-1); LYMPHOCYTES ABSOLUTE AUTO 3.91 K/mm3 (0.84-5.20); LYMPHOCYTES PERCENT AUTO 28 % (21-46); MONOCYTES ABSOLUTE AUTO 0.86 K/mm3 (0.16-1.47); MONOCYTES PERCENT AUTO 6 % (4-13); Mean Corpuscular HGB 28.8 pg (26.0-34.0); Mean Corpuscular HGB Conc 32.5 g/dL (31.5-36.5); Mean Corpuscular Volume 89 fL (80-100); Mean Platelet Volume 9.4 fL (9.1-12.4); NEUTROPHILS ABSOLUTE AUTO 8.77 K/mm3 (1.96-9.15); NEUTROPHILS PERCENT AUTO 63 % (41-73); Platelet Count 400 K/mm3 (150-400); RDW Coefficient Variation 15.5 % (11.7-14.2); RDW Standard Deviation 50.6 fL (35.1-46.3); Red Blood Cell Count 4.55 M/mm3 (3.80-5.20); White Blood Cell Count 13.89 K/mm3 (4.00-11.30)
[2021-01-24 19:57] LABS: Alanine Aminotransfer (ALT/SGP 69 U/L (12-78); Albumin, Blood 3.2 g/dL (3.4-5.0); Albumin/Globulin Ratio 0.7 (0.8-1.8); Alk Phos 223 U/L (50-136); Anion Gap 7 mmol/L (6-16); Aspartate Aminotrans (AST/SGOT 183 U/L (12-37); Bilirubin, Total 0.3 mg/dL (0.1-1.0); Blood Urea Nitrogen 9 mg/dL (8-24); CO2, Blood 25 mmol/L (21-32); Calcium, Blood 9.8 mg/dL (8.5-10.1); Chloride, Blood 104 mmol/L (98-108); Creatinine, Blood 0.75 mg/dL (0.40-1.00); Globulin, Blood 4.6 g/dL (2.2-4.0); Glomerular Filtration Rate >60 (60-); Glucose, Blood 171 mg/dL (70-99); Potassium, Blood 3.5 mmol/L (3.5-5.5); Sodium, Blood 136 mmol/L (136-145); Total Protein, Blood 7.8 g/dL (6.4-8.2)
== END 2021-01-24 22:25 | disposition home or self-care (01) ==
LOC: ER 19:03
PROVIDERS: Physician Assistant
DX: K85.90 Acute pancreatitis without necrosis or infection, unspecified (principal); K86.1 Other chronic pancreatitis; K86.89 Other specified diseases of pancreas; D72.829 Elevated white blood cell count, unspecified; J44.9 Chronic obstructive pulmonary disease, unspecified; K21.9 Gastro-esophageal reflux disease without esophagitis; E11.9 Type 2 diabetes mellitus without complications; Z88.8 Allergy status to other drugs, medicaments and biological substances; Z88.1 Allergy status to other antibiotic agents; Z88.0 Allergy status to penicillin; Z91.048 Other nonmedicinal substance allergy status; Z91.040 Latex allergy status; Z91.02 Food additives allergy status; Z79.899 Other long term (current) drug therapy; Z87.891 Personal history of nicotine dependence; Z90.49 Acquired absence of other specified parts of digestive tract
CPT/HCPCS: 36415; 80053; 83690; 85025; 93005; 93010; 96374; 96375; 99284-25; J1170; J2405; J7030

== ENCOUNTER → 2021-02-04 | Outpatient (CLI) | payer OTHER ==
[~2021-02-04] MED LIST changes: +INSULANPEN SC; +PERCOCET PO
== END | disposition home or self-care (01) ==
LOC: LAB 11:37 → LAB SHORT 11:37
DX: R19.7 Diarrhea, unspecified (principal)
CPT/HCPCS: 87015; 87045; 87046; 87205; 87899

== ENCOUNTER → 2021-02-06 | Outpatient (CLI) | payer OTHER ==
[2021-02-08 14:05] LABS: C DIFFICILE DNA NEGATIVE (Negative)
== END | disposition home or self-care (01) ==
LOC: LAB SHORT 11:42
PROVIDERS: Physician Assistant
DX: R19.7 Diarrhea, unspecified (principal)
CPT/HCPCS: 87338; 87493

== ENCOUNTER 2021-02-21 10:04 | Emergency (ER) | payer OTHER ==
[~2021-02-21] VITALS: Ht 167.6 cm; Wt 75.8 kg
== END 2021-02-21 13:40 | disposition home or self-care (01) ==
LOC: ER 10:04
DX: E83.42 Hypomagnesemia (principal); R10.9 Unspecified abdominal pain; J44.9 Chronic obstructive pulmonary disease, unspecified; K21.9 Gastro-esophageal reflux disease without esophagitis; E11.9 Type 2 diabetes mellitus without complications; G43.909 Migraine, unspecified, not intractable, without status migrainosus; Z88.2 Allergy status to sulfonamides; Z91.040 Latex allergy status; Z88.0 Allergy status to penicillin; Z88.8 Allergy status to other drugs, medicaments and biological substances; Z79.4 Long term (current) use of insulin; Z79.899 Other long term (current) drug therapy
CPT/HCPCS: 36415; 93005; 93010; 96365; 96366; 99283; A9270; J3475; J7030

== ENCOUNTER → 2021-02-22 | Outpatient (CLI) | payer OTHER | LOC: OLS 23:55 → LAB SHORT 23:55 → EDSTATUS 02-08 14:00 → LAB FUT 02-08 14:00 | DX: R19.7 Diarrhea, unspecified (principal); Z88.0 Allergy status to penicillin; Z88.1 Allergy status to other antibiotic agents; Z88.2 Allergy status to sulfonamides; Z88.8 Allergy status to other drugs, medicaments and biological substances; Z91.02 Food additives allergy status; Z91.048 Other nonmedicinal substance allergy status; Z91.040 Latex allergy status | CPT/HCPCS: 87177; 87209 ==

== ENCOUNTER 2021-02-27 13:36 | Emergency (ER) | payer OTHER ==
[~2021-02-27] VITALS: Ht 167.6 cm; Wt 75.8 kg
[2021-02-27 14:16] LABS: Hematocrit 39.8 % (33.0-51.0); Hemoglobin 12.8 g/dL (11.5-16.0); Mean Corpuscular HGB 28.8 pg (26.0-34.0); Mean Corpuscular HGB Conc 32.2 g/dL (31.5-36.5); Mean Corpuscular Volume 89 fL (80-100); Mean Platelet Volume 9.8 fL (9.1-12.4); Platelet Count 439 K/mm3 (150-400); RDW Coefficient Variation 15.9 % (11.7-14.2); RDW Standard Deviation 52.1 fL (35.1-46.3); Red Blood Cell Count 4.45 M/mm3 (3.80-5.20); White Blood Cell Count 9.18 K/mm3 (4.00-11.30)
[2021-02-27 14:36] LABS: BASOPHILS PERCENT MAN 0 % (0-2); EOSINOPHILS ABSOLUTE MAN 0.09 K/mm3 (0.00-0.68); EOSINOPHILS PERCENT MAN 1 % (0-6); LYMPHOCYTES ABSOLUTE MAN 3.94 K/mm3 (0.84-5.20); LYMPHOCYTES PERCENT MAN 43 % (21-46); MONOCYTES ABSOLUTE MAN 0.36 K/mm3 (0.16-1.47); MONOCYTES PERCENT MAN 4 % (4-13); NEUTROPHILS ABSOLUTE MAN 4.77 K/mm3 (1.96-9.15); SEG NEUTROPHILS PERCENT MAN 52 % (41-73); TOTAL CELLS COUNTED 100
[2021-02-27 14:50] LABS: Alanine Aminotransfer (ALT/SGP 20 U/L (12-78); Albumin, Blood 3.2 g/dL (3.4-5.0); Albumin/Globulin Ratio 0.7 (0.8-1.8); Alk Phos 141 U/L (50-136); Anion Gap 4 mmol/L (6-16); Aspartate Aminotrans (AST/SGOT 16 U/L (12-37); Bilirubin, Total 0.3 mg/dL (0.1-1.0); Blood Urea Nitrogen 6 mg/dL (8-24); Bun/Creatinine Ratio 7.7 (12.0-20.0); CO2, Blood 22 mmol/L (21-32); Calcium, Blood 9.1 mg/dL (8.5-10.1); Chloride, Blood 109 mmol/L (98-108); Creatinine, Blood 0.78 mg/dL (0.40-1.00); Globulin, Blood 4.6 g/dL (2.2-4.0); Glomerular Filtration Rate >60 (60-); Glucose, Blood 168 mg/dL (70-99); Potassium, Blood 3.7 mmol/L (3.5-5.5); Sodium, Blood 135 mmol/L (136-145); Total Protein, Blood 7.8 g/dL (6.4-8.2)
[2021-02-27 15:01] LABS: Magnesium, Blood 0.8 mg/dL (1.6-2.4)
== END 2021-02-27 19:22 | disposition home or self-care (01) ==
LOC: ER 13:36
PROVIDERS: Physician Assistant
DX: E83.42 Hypomagnesemia (principal); G89.29 Other chronic pain; R10.10 Upper abdominal pain, unspecified; Z88.0 Allergy status to penicillin; Z88.2 Allergy status to sulfonamides; Z91.040 Latex allergy status; Z88.1 Allergy status to other antibiotic agents; Z88.8 Allergy status to other drugs, medicaments and biological substances; Z91.02 Food additives allergy status; Z91.048 Other nonmedicinal substance allergy status; Z79.4 Long term (current) use of insulin; Z79.899 Other long term (current) drug therapy; J44.9 Chronic obstructive pulmonary disease, unspecified; K21.9 Gastro-esophageal reflux disease without esophagitis; G43.909 Migraine, unspecified, not intractable, without status migrainosus; E11.9 Type 2 diabetes mellitus without complications; Z87.891 Personal history of nicotine dependence
CPT/HCPCS: 36415; 80053; 83690; 83735; 85025; 93005; 93010; 96365; 96366; 96375; 99284-25; J1885; J2270; J2405; J3475; J7030

== ENCOUNTER → 2021-06-06 | Outpatient (CLI) | payer OTHER ==
[2021-06-06 19:23] LABS: BASOPHILS ABSOLUTE AUTO 0.05 K/mm3 (0.00-0.23); BASOPHILS PERCENT AUTO 1 % (0-2); EOSINOPHILS ABSOLUTE AUTO 0.37 K/mm3 (0.00-0.68); EOSINOPHILS PERCENT AUTO 4 % (0-6); Hemoglobin 12.4 g/dL (11.5-16.0); IMMATURE GRAN ABSOLUTE AUTO 0.02 K/mm3 (0.00-0.10); IMMATURE GRAN PERCENT AUTO 0 % (0-1); LYMPHOCYTES ABSOLUTE AUTO 3.38 K/mm3 (0.84-5.20); LYMPHOCYTES PERCENT AUTO 35 % (21-46); MONOCYTES ABSOLUTE AUTO 0.56 K/mm3 (0.16-1.47); MONOCYTES PERCENT AUTO 6 % (4-13); Mean Corpuscular HGB 28.1 pg (26.0-34.0); Mean Corpuscular HGB Conc 32.6 g/dL (31.5-36.5); Mean Corpuscular Volume 86 fL (80-100); Mean Platelet Volume 10.1 fL (9.1-12.4); NEUTROPHILS ABSOLUTE AUTO 5.42 K/mm3 (1.96-9.15); NEUTROPHILS PERCENT AUTO 55 % (41-73); Platelet Count 391 K/mm3 (150-400); RDW Standard Deviation 53.5 fL (35.1-46.3); Red Blood Cell Count 4.42 M/mm3 (3.80-5.20)
[2021-06-06 19:55] LABS: Alanine Aminotransfer (ALT/SGP 23 U/L (12-78); Albumin, Blood 3.8 g/dL (3.4-5.0); Alk Phos 145 U/L (50-136); Anion Gap 6 mmol/L (6-16); Aspartate Aminotrans (AST/SGOT 14 U/L (12-37); Bilirubin, Total 0.2 mg/dL (0.1-1.0); Blood Urea Nitrogen 11 mg/dL (8-24); Bun/Creatinine Ratio 12.4 (12.0-20.0); CO2, Blood 24 mmol/L (21-32); Calcium, Blood 8.9 mg/dL (8.5-10.1); Chloride, Blood 110 mmol/L (98-108); Creatinine, Blood 0.88 mg/dL (0.40-1.00); Globulin, Blood 3.8 g/dL (2.2-4.0); Glomerular Filtration Rate >60 (60-); Glucose, Blood 187 mg/dL (70-99); Potassium, Blood 3.7 mmol/L (3.5-5.5); Sodium, Blood 140 mmol/L (136-145); Total Protein, Blood 7.6 g/dL (6.4-8.2)
== END ==
LOC: LAB SHORT 17:15 → LAB 17:15
PROVIDERS: Physician Assistant
DX: K86.1 Other chronic pancreatitis (principal)
CPT/HCPCS: 80053; 83690; 85025

== ENCOUNTER 2021-07-18 18:11 | Emergency (ER) | payer OTHER ==
[~2021-07-18] VITALS: Ht 167.6 cm; Wt 72.6 kg
== END 2021-07-18 20:35 | disposition home or self-care (01) ==
LOC: ER 18:11
DX: S01.81XA Laceration without foreign body of other part of head, initial encounter (principal); S63.614A Unspecified sprain of right ring finger, initial encounter; S90.02XA Contusion of left ankle, initial encounter; S00.11XA Contusion of right eyelid and periocular area, initial encounter; G43.909 Migraine, unspecified, not intractable, without status migrainosus; K21.9 Gastro-esophageal reflux disease without esophagitis; J44.9 Chronic obstructive pulmonary disease, unspecified; E11.9 Type 2 diabetes mellitus without complications; Z79.899 Other long term (current) drug therapy; Z88.0 Allergy status to penicillin; Z91.040 Latex allergy status; Z88.8 Allergy status to other drugs, medicaments and biological substances; Y04.2XXA Assault by strike against or bumped into by another person, initial encounter
CPT/HCPCS: 70450; 72125; 73130; 73610; 90471; 90714; 99284-25; A9270; L0160

== ENCOUNTER 2021-09-26 11:50 | Emergency (ER) | payer OTHER ==
[~2021-09-26] VITALS: Ht 165.1 cm; Wt 77.1 kg
[2021-09-26 12:57] LABS: Albumin, Blood 3.6 g/dL (3.4-5.0); Albumin/Globulin Ratio 0.9 (0.8-1.8); Bilirubin, Total 0.3 mg/dL (0.1-1.0); Bun/Creatinine Ratio 25.5 (12.0-20.0); Calcium, Blood 9.3 mg/dL (8.5-10.1); Creatinine, Blood 0.67 mg/dL (0.40-1.00); Potassium, Blood 3.9 mmol/L (3.5-5.5); Total Protein, Blood 7.6 g/dL (6.4-8.2)
[2021-09-26 13:38] LABS: BASOPHILS ABSOLUTE AUTO 0.05 K/mm3 (0.00-0.23); BASOPHILS PERCENT AUTO 0 % (0-2); EOSINOPHILS ABSOLUTE AUTO 0.31 K/mm3 (0.00-0.68); EOSINOPHILS PERCENT AUTO 2 % (0-6); Hematocrit 31.6 % (33.0-51.0); Hemoglobin 10.5 g/dL (11.5-16.0); IMMATURE GRAN ABSOLUTE AUTO 0.04 K/mm3 (0.00-0.10); IMMATURE GRAN PERCENT AUTO 0 % (0-1); LYMPHOCYTES ABSOLUTE AUTO 2.85 K/mm3 (0.84-5.20); LYMPHOCYTES PERCENT AUTO 23 % (21-46); MONOCYTES ABSOLUTE AUTO 0.83 K/mm3 (0.16-1.47); MONOCYTES PERCENT AUTO 7 % (4-13); Mean Corpuscular HGB 28.6 pg (26.0-34.0); Mean Corpuscular HGB Conc 33.2 g/dL (31.5-36.5); Mean Corpuscular Volume 86 fL (80-100); Mean Platelet Volume 9.7 fL (9.1-12.4); NEUTROPHILS PERCENT AUTO 68 % (41-73); Platelet Count 299 K/mm3 (150-400); RDW Coefficient Variation 14.9 % (11.7-14.2); RDW Standard Deviation 47.4 fL (35.1-46.3); Red Blood Cell Count 3.67 M/mm3 (3.80-5.20); White Blood Cell Count 12.68 K/mm3 (4.00-11.30)
[2021-09-26 13:47] LABS: Source, Urine Clean Catch
[2021-09-26 13:55] LABS: Appearance, Urine Clear (Clear); Bilirubin, Urine Neg (Neg); Blood, Urine Neg (Neg); Color, Urine Yellow (P-Yellow); Glucose Qualitative, Urine 4+ (Neg); Ketones, Urine Neg (Neg); Leukocyte Esterase, Urine Neg (Neg); Nitrite, Urine Neg (Neg); Protein, Urine Neg (Neg); Urobilinogen, Urine NORM (Normal)
== END 2021-09-26 15:13 | disposition home or self-care (01) ==
LOC: ER 11:50
PROVIDERS: Student in an Organized Health Care Education/Training Program
DX: K86.1 Other chronic pancreatitis (principal); Z88.8 Allergy status to other drugs, medicaments and biological substances; Z88.0 Allergy status to penicillin; Z88.1 Allergy status to other antibiotic agents; Z91.040 Latex allergy status; Z91.048 Other nonmedicinal substance allergy status; Z79.899 Other long term (current) drug therapy; Z79.4 Long term (current) use of insulin; Z85.3 Personal history of malignant neoplasm of breast; K21.9 Gastro-esophageal reflux disease without esophagitis; G43.909 Migraine, unspecified, not intractable, without status migrainosus; F43.10 Post-traumatic stress disorder, unspecified; J44.9 Chronic obstructive pulmonary disease, unspecified; E11.9 Type 2 diabetes mellitus without complications; Z87.891 Personal history of nicotine dependence
CPT/HCPCS: 36415; 80053; 81003; 83690; 85025; 93005; 93010; 96361; 96374; 96375; 99284-25; J1885; J2405; J7030

== ENCOUNTER 2021-09-30 13:08 | Emergency (ER) | payer OTHER ==
[~2021-09-30] VITALS: Ht 165.1 cm; Wt 77.1 kg
[2021-09-30 15:21] LABS: Source, Urine Clean Catch
[2021-09-30 15:33] LABS: BASOPHILS ABSOLUTE AUTO 0.04 K/mm3 (0.00-0.23); BASOPHILS PERCENT AUTO 0 % (0-2); EOSINOPHILS PERCENT AUTO 1 % (0-6); Hemoglobin 12.2 g/dL (11.5-16.0); IMMATURE GRAN ABSOLUTE AUTO 0.03 K/mm3 (0.00-0.10); IMMATURE GRAN PERCENT AUTO 0 % (0-1); LYMPHOCYTES ABSOLUTE AUTO 2.13 K/mm3 (0.84-5.20); LYMPHOCYTES PERCENT AUTO 21 % (21-46); MONOCYTES ABSOLUTE AUTO 0.82 K/mm3 (0.16-1.47); MONOCYTES PERCENT AUTO 8 % (4-13); Mean Corpuscular Volume 85 fL (80-100); Mean Platelet Volume 9.4 fL (9.1-12.4); NEUTROPHILS ABSOLUTE AUTO 7.22 K/mm3 (1.96-9.15); NEUTROPHILS PERCENT AUTO 70 % (41-73); Platelet Count 372 K/mm3 (150-400); RDW Coefficient Variation 14.6 % (11.7-14.2); RDW Standard Deviation 45.8 fL (35.1-46.3); Red Blood Cell Count 4.35 M/mm3 (3.80-5.20); White Blood Cell Count 10.34 K/mm3 (4.00-11.30)
[2021-09-30 15:33] LABS: Appearance, Urine Clear (Clear); Bilirubin, Urine Neg (Neg); Blood, Urine Neg (Neg); Color, Urine Yellow (P-Yellow); Glucose Qualitative, Urine Neg (Neg); Ketones, Urine 2+ (Neg); Leukocyte Esterase, Urine Neg (Neg); Nitrite, Urine Neg (Neg); Protein, Urine Neg (Neg); Specific Gravity, Urine 1.015 (1.003-1.022); Urobilinogen, Urine NORM (Normal)
[2021-09-30 15:51] LABS: Albumin, Blood 3.3 g/dL (3.4-5.0); Albumin/Globulin Ratio 0.6 (0.8-1.8); Bilirubin, Total 0.3 mg/dL (0.1-1.0); Bun/Creatinine Ratio 11.5 (12.0-20.0); Calcium, Blood 9.5 mg/dL (8.5-10.1); Creatinine, Blood 0.61 mg/dL (0.40-1.00); Globulin, Blood 5.1 g/dL (2.2-4.0); Potassium, Blood 3.6 mmol/L (3.5-5.5); Total Protein, Blood 8.4 g/dL (6.4-8.2)
== END 2021-09-30 20:27 | disposition home or self-care (01) ==
LOC: ER 13:08
PROVIDERS: Physician Assistant
DX: K85.90 Acute pancreatitis without necrosis or infection, unspecified (principal); K86.1 Other chronic pancreatitis; K59.00 Constipation, unspecified; J44.9 Chronic obstructive pulmonary disease, unspecified; K21.9 Gastro-esophageal reflux disease without esophagitis; E11.9 Type 2 diabetes mellitus without complications; F15.11 Other stimulant abuse, in remission; Z79.899 Other long term (current) drug therapy; Z79.4 Long term (current) use of insulin; Z88.1 Allergy status to other antibiotic agents; Z91.02 Food additives allergy status; Z88.0 Allergy status to penicillin; Z88.2 Allergy status to sulfonamides; Z88.8 Allergy status to other drugs, medicaments and biological substances; Z91.09 Other allergy status, other than to drugs and biological substances
CPT/HCPCS: 36415; 74177; 80053; 81003; 83690; 85025; A9270; J1885; J7030; Q9967

== ENCOUNTER → 2021-10-23 | Outpatient (CLI) | payer OTHER ==
[2021-10-23 13:19] LABS: Bun/Creatinine Ratio 15.7 (12.0-20.0); Calcium, Blood 9.4 mg/dL (8.5-10.1); Creatinine, Blood 0.64 mg/dL (0.40-1.00); Magnesium, Blood 1.4 mg/dL (1.6-2.4)
== END | disposition home or self-care (01) ==
LOC: LAB SHORT 09:35
PROVIDERS: Physician Assistant
DX: E83.42 Hypomagnesemia (principal)
CPT/HCPCS: 80048; 83735

== ENCOUNTER 2021-10-24 08:51 | Emergency (ER) | payer OTHER ==
[~2021-10-24] VITALS: Ht 165.1 cm; Wt 73.5 kg
[2021-10-24 10:08] LABS: BASOPHILS ABSOLUTE AUTO 0.06 K/mm3 (0.00-0.23); BASOPHILS PERCENT AUTO 1 % (0-2); EOSINOPHILS ABSOLUTE AUTO 0.28 K/mm3 (0.00-0.68); EOSINOPHILS PERCENT AUTO 3 % (0-6); Hemoglobin 11.2 g/dL (11.5-16.0); IMMATURE GRAN ABSOLUTE AUTO 0.04 K/mm3 (0.00-0.10); IMMATURE GRAN PERCENT AUTO 0 % (0-1); LYMPHOCYTES ABSOLUTE AUTO 2.47 K/mm3 (0.84-5.20); LYMPHOCYTES PERCENT AUTO 22 % (21-46); MONOCYTES ABSOLUTE AUTO 0.93 K/mm3 (0.16-1.47); MONOCYTES PERCENT AUTO 8 % (4-13); Mean Corpuscular HGB 27.3 pg (26.0-34.0); Mean Corpuscular Volume 85 fL (80-100); Mean Platelet Volume 10.1 fL (9.1-12.4); NEUTROPHILS ABSOLUTE AUTO 7.61 K/mm3 (1.96-9.15); NEUTROPHILS PERCENT AUTO 67 % (41-73); Platelet Count 277 K/mm3 (150-400); RDW Coefficient Variation 15.5 % (11.7-14.2); RDW Standard Deviation 48.5 fL (35.1-46.3); White Blood Cell Count 11.39 K/mm3 (4.00-11.30)
[2021-10-24 10:27] LABS: Albumin, Blood 3.4 g/dL (3.4-5.0); Bilirubin, Total 0.4 mg/dL (0.1-1.0); Bun/Creatinine Ratio 10.7 (12.0-20.0); Calcium, Blood 8.7 mg/dL (8.5-10.1); Creatinine, Blood 0.75 mg/dL (0.40-1.00); Globulin, Blood 3.5 g/dL (2.2-4.0); Magnesium, Blood 1.2 mg/dL (1.6-2.4); Potassium, Blood 3.9 mmol/L (3.5-5.5); Total Protein, Blood 6.9 g/dL (6.4-8.2)
[2021-10-24] MEDS ORDERED: Percocet 5-3251 EACH PO (11:25)
== END 2021-10-24 11:38 | disposition home or self-care (01) ==
LOC: ER 08:51
PROVIDERS: Emergency Medicine
DX: K86.1 Other chronic pancreatitis (principal); R19.7 Diarrhea, unspecified; J44.9 Chronic obstructive pulmonary disease, unspecified; E11.9 Type 2 diabetes mellitus without complications; K21.9 Gastro-esophageal reflux disease without esophagitis; Z79.4 Long term (current) use of insulin; Z88.1 Allergy status to other antibiotic agents; Z79.899 Other long term (current) drug therapy; Z91.040 Latex allergy status; Z88.0 Allergy status to penicillin; Z88.2 Allergy status to sulfonamides; Z88.8 Allergy status to other drugs, medicaments and biological substances; Z91.048 Other nonmedicinal substance allergy status; Z91.02 Food additives allergy status
CPT/HCPCS: 36415; 80053; 83690; 83735; 85025; 96361; 96365; 96375; 99284-25; A9270; J2405; J3475; J7120

== ENCOUNTER 2021-11-11 04:39 | Inpatient (IN) | payer OTHER ==
[~2021-11-11] VITALS: Ht 165.1 cm; Wt 55.8 kg
[2021-11-11 05:07] LABS: BASOPHILS ABSOLUTE AUTO 0.04 K/mm3 (0.00-0.23); BASOPHILS PERCENT AUTO 0 % (0-2); EOSINOPHILS ABSOLUTE AUTO 0.25 K/mm3 (0.00-0.68); EOSINOPHILS PERCENT AUTO 2 % (0-6); Hematocrit 37.2 % (33.0-51.0); IMMATURE GRAN ABSOLUTE AUTO 0.06 K/mm3 (0.00-0.10); IMMATURE GRAN PERCENT AUTO 0 % (0-1); LYMPHOCYTES ABSOLUTE AUTO 2.32 K/mm3 (0.84-5.20); LYMPHOCYTES PERCENT AUTO 16 % (21-46); MONOCYTES ABSOLUTE AUTO 0.88 K/mm3 (0.16-1.47); MONOCYTES PERCENT AUTO 6 % (4-13); Mean Corpuscular HGB 26.3 pg (26.0-34.0); Mean Corpuscular HGB Conc 32.3 g/dL (31.5-36.5); Mean Corpuscular Volume 82 fL (80-100); Mean Platelet Volume 9.5 fL (9.1-12.4); NEUTROPHILS ABSOLUTE AUTO 10.83 K/mm3 (1.96-9.15); NEUTROPHILS PERCENT AUTO 75 % (41-73); Platelet Count 624 K/mm3 (150-400); RDW Coefficient Variation 15.5 % (11.7-14.2); RDW Standard Deviation 46.3 fL (35.1-46.3); Red Blood Cell Count 4.56 M/mm3 (3.80-5.20); White Blood Cell Count 14.38 K/mm3 (4.00-11.30)
[2021-11-11 05:34] LABS: Albumin, Blood 3.1 g/dL (3.4-5.0); Albumin/Globulin Ratio 0.6 (0.8-1.8); Bilirubin, Total 0.4 mg/dL (0.1-1.0); Bun/Creatinine Ratio 13.1 (12.0-20.0); Calcium, Blood 9.7 mg/dL (8.5-10.1); Creatinine, Blood 0.69 mg/dL (0.40-1.00); Globulin, Blood 5.1 g/dL (2.2-4.0); Potassium, Blood 3.7 mmol/L (3.5-5.5); Total Protein, Blood 8.2 g/dL (6.4-8.2)
[2021-11-11 06:46] LABS: Source, Urine Clean Catch
[2021-11-11 06:49] LABS: Appearance, Urine Clear (Clear); Bilirubin, Urine Neg (Neg); Blood, Urine Neg (Neg); Color, Urine Yellow (P-Yellow); Glucose Qualitative, Urine 3+ (Neg); Ketones, Urine 1+ (Neg); Leukocyte Esterase, Urine Neg (Neg); Nitrite, Urine Neg (Neg); Protein, Urine 1+ (Neg); Specific Gravity, Urine 1.015 (1.003-1.022); Urobilinogen, Urine 1+ (Normal)
[2021-11-11 13:17] LABS: U Amphetamine Screen Not Detected; U Barbituate Screen Not Detected; U Benzodiazapine Screen Not Detected; U Buprenorphine Screen Not Detected; U Cannabinoids Screen DETECTED; U Cocaine Screen Not Detected; U Methadone Screen Not Detected; U Methamphetamine Screen Not Detected; U Opiates Screen Not Detected; U Oxycodone Screen DETECTED; U Phencyclidine Screen Not Detected; U Propoxyphene Screen Not Detected
--- NOTE | 2021-11-11 19:49 | NUR ---
SHIFT SUMMARY PATIENT ADMITTED FROM ER AT 1500. PATIENT SETTLED INTO ROOM. PATIENT MEDICATED FOR PAIN X2. PATIENT MEDICATED FOR NAUSEA X1. PATIENT DENIES SHORTNESS OF BREATH. PATIENT IS IND IN ROOM. PATIENT IS A&O X4. PATIENT IS NPO, ICE CHIPS OKAY. PATIENT TENDER TO PALPATION IN ABDOMEN. PATIENT IS PLEASANT AND COOPERATIVE WITH CARE.
[2021-11-12 05:33] LABS: Albumin, Blood 2.4 g/dL (3.4-5.0); Albumin/Globulin Ratio 0.5 (0.8-1.8); Bilirubin, Total 0.3 mg/dL (0.1-1.0); Calcium, Blood 9.2 mg/dL (8.5-10.1); Creatinine, Blood 0.6 mg/dL (0.40-1.00); Globulin, Blood 4.4 g/dL (2.2-4.0); Magnesium, Blood 1.3 mg/dL (1.6-2.4); Potassium, Blood 3.2 mmol/L (3.5-5.5); Total Protein, Blood 6.8 g/dL (6.4-8.2)
[2021-11-12 05:39] LABS: Hematocrit 32.3 % (33.0-51.0); Hemoglobin 10.2 g/dL (11.5-16.0); Mean Corpuscular HGB 26.4 pg (26.0-34.0); Mean Corpuscular HGB Conc 31.6 g/dL (31.5-36.5); Mean Corpuscular Volume 84 fL (80-100); Mean Platelet Volume 10.1 fL (9.1-12.4); Platelet Count 498 K/mm3 (150-400); RDW Coefficient Variation 15.5 % (11.7-14.2); RDW Standard Deviation 46.7 fL (35.1-46.3); Red Blood Cell Count 3.86 M/mm3 (3.80-5.20)
--- NOTE | 2021-11-12 07:37 | NUR ---
SHIFT SUMMARY: A/OX4, ADLIB IN ROOM, INDEPENDENT REPOSITIONING IN BED. DIFFICULTY MANAGING PAIN THROUGHOUT THE NIGHT. GIA LOPEZ CONTACTED [facility] TO INFORM OF PTS CONTINUED PAIN REQUIRING Q2 PAIN MEDICATION ADMINISTRATION WITH LITTLE EFFECTIVENESS. GAVE TELEPHONE ORDER FOR PO NORCO, WHICH DID NOT APPEAR TO GIVE MUCH MORE PAIN CONTROL. PT REQUESTING HOME SCHEDULED MEDICATIONS, GIA LOPEZ GAVE ORDERS FOR HOME GABAPENTIN AND NORCO. DISCUSSED WITH DAY SHIFT RN IN REPORT OF PTS REQUEST FOR HOME MEDICATIONS- DAY SHIFT RN TO DISCUSS WITH HOSPITALIST FOR APPROPRIATENESS TO ORDER HOME MEDS TODAY.
--- NOTE | 2021-11-12 17:50 | NUR ---
SHIFT SUMMARY PATIENT MEDICATED FOR PAIN X4. PATIENT MEDICATED FOR NAUSEA X1. PATIENT DENIES SHORTNESS OF BREATH. PATIENT IS IND IN ROOM. PATIENT TOLERATING A FEW MEDS WITH WATER OKAY. PATIENT WAS ABLE TO SLEEP IN AFTERNOON. PATIENT VISITED IN AFTERNOON. PATIENT ABLE TO SHOWER. CLEAR LIQUID ORDERED FOR DINNER. PATIENT COULD NOT TOLERATE MUCH. PATIENT IS PLEASANT AND COOPERATIVE WITH CARE.
[2021-11-13 05:27] LABS: Albumin, Blood 2.2 g/dL (3.4-5.0); Albumin/Globulin Ratio 0.5 (0.8-1.8); Bilirubin, Total 1.2 mg/dL (0.1-1.0); Bun/Creatinine Ratio 10.7 (12.0-20.0); Calcium, Blood 8.8 mg/dL (8.5-10.1); Creatinine, Blood 0.65 mg/dL (0.40-1.00); Globulin, Blood 4.2 g/dL (2.2-4.0); Potassium, Blood 2.6 mmol/L (3.5-5.5); Total Protein, Blood 6.4 g/dL (6.4-8.2)
[2021-11-13 05:31] LABS: BASOPHILS ABSOLUTE AUTO 0.04 K/mm3 (0.00-0.23); BASOPHILS PERCENT AUTO 0 % (0-2); EOSINOPHILS PERCENT AUTO 0 % (0-6); Hematocrit 32.5 % (33.0-51.0); Hemoglobin 10.8 g/dL (11.5-16.0); IMMATURE GRAN ABSOLUTE AUTO 0.07 K/mm3 (0.00-0.10); IMMATURE GRAN PERCENT AUTO 1 % (0-1); LYMPHOCYTES ABSOLUTE AUTO 0.34 K/mm3 (0.84-5.20); LYMPHOCYTES PERCENT AUTO 3 % (21-46); MONOCYTES ABSOLUTE AUTO 0.17 K/mm3 (0.16-1.47); MONOCYTES PERCENT AUTO 1 % (4-13); Mean Corpuscular HGB 26.7 pg (26.0-34.0); Mean Corpuscular HGB Conc 33.2 g/dL (31.5-36.5); Mean Corpuscular Volume 80 fL (80-100); Mean Platelet Volume 9.9 fL (9.1-12.4); NEUTROPHILS ABSOLUTE AUTO 12.35 K/mm3 (1.96-9.15); NEUTROPHILS PERCENT AUTO 95 % (41-73); Platelet Count 323 K/mm3 (150-400); RDW Coefficient Variation 15.3 % (11.7-14.2); Red Blood Cell Count 4.04 M/mm3 (3.80-5.20); White Blood Cell Count 12.97 K/mm3 (4.00-11.30)
--- NOTE | 2021-11-13 06:21 | NUR ---
SHIFT SUMMARY 46 YR F ADMITTED ON 11/12/21 FOR ACUTE PANCREATITIS. FULL CODE. NO ACUTE CHANGES THIS SHIFT. PT STATES SHE IS IN CONSTANT PAIN AND IS BEING MEDICATED Q2H PER EMAR. AT ONE POINT DURING THE SHIFT SHE STATED THAT SHE WAS "FREEZING" COLD AND WAS SHIVERING VERY BADLY. SHE WAS GIVEN A WARM BLANKET AND HER TEMP WAS TAKEN WHICH WAS WITHIN NORMAL RANGE. AN HOUR LATER SHE WAS SITTING IN BED WITH NO BLANKETS ON AND STATED THAT SHE WAS WARM. PT STATED THAT SHE FEELS IF HER PANCREATIC STENT BEING REMOVED BY [facility] IS PART OF THE REASON SHE FEELS SO POORLY. SHE IS PLEASANT, INDEPENDANT IN ROOM, AND COOPERATIVE WITH CARE.
--- NOTE | 2021-11-13 10:50 | NUR ---
PT OUT WITH via [facility], for a walk.
[2021-11-13 14:45] LABS: Albumin/Globulin Ratio 0.5 (0.8-1.8); Bilirubin, Total 0.5 mg/dL (0.1-1.0); Calcium, Blood 8.2 mg/dL (8.5-10.1); Creatinine, Blood 0.67 mg/dL (0.40-1.00); Potassium, Blood 3.7 mmol/L (3.5-5.5)
--- NOTE | 2021-11-13 17:17 | NUR ---
SHIFT SUMMARY- PT PLEASANT DURING SHIFT. PT TOOK WHEELCHAIR STROLL BEFORE LUNCH WITH . PT C/O PAIN, MEDICATED PER EMAR. PT AFEBRILE BUT SHIVERED AROUND 1600, WARM BLANKET PROVIDED. PT STATED SHE WAS SHAKY BUT HAS BEEN LIKE THAT BEFORE DURING THIS TIME OF DAY. WILL CONTINUE TO MONITOR. PT INDEPENDANT IN ROOM. PT RESTING NOW WITH CALL LIGHT WITHIN REACH AND SIDE RAILS UP X3.
--- NOTE | 2021-11-14 04:40 | NUR ---
SHIFT SUMMARY 46 YR F ADMITTED ON 11/12/21 FOR ACUTE PANCREATITIS. FULL CODE. NO ACUTE CHANGED THIS SHIFT. PT IS STILL HAVING A GREAT DEAL OF PAIN AND ASKING TO BE MEDICATED Q2H. SHE GOT VERY NAUSEAUS AT ONE POINT AND ACTUALLY VOMITED A SMALL AMOUNT. ZOFRAN WAS GIVEN PER EMAR AND PT STATED THAT SHE FELT BETTER AFTER THAT. SHE IS INDEPENDANT IN THE ROOM AND USES THE CALL BUTTON APPROPRIATELY. LR RUNNING CONTINUOUSLY @ 200.
[2021-11-14 05:25] LABS: Hematocrit 28.5 % (33.0-51.0); Hemoglobin 9.3 g/dL (11.5-16.0); Mean Corpuscular HGB 26.6 pg (26.0-34.0); Mean Corpuscular HGB Conc 32.6 g/dL (31.5-36.5); Mean Corpuscular Volume 82 fL (80-100); Mean Platelet Volume 10.3 fL (9.1-12.4); Platelet Count 318 K/mm3 (150-400); RDW Coefficient Variation 15.7 % (11.7-14.2); Red Blood Cell Count 3.49 M/mm3 (3.80-5.20); White Blood Cell Count 16.38 K/mm3 (4.00-11.30)
[2021-11-14 05:48] LABS: BAND PERCENT MAN 27 % (0-8); BASOPHILS PERCENT MAN 0 % (0-2); EOSINOPHILS PERCENT MAN 0 % (0-6); LYMPHOCYTES ABSOLUTE MAN 0.16 K/mm3 (0.84-5.20); LYMPHOCYTES PERCENT MAN 1 % (21-46); MONOCYTES ABSOLUTE MAN 0.65 K/mm3 (0.16-1.47); MONOCYTES PERCENT MAN 4 % (4-13); NEUTROPHILS ABSOLUTE MAN 15.56 K/mm3 (1.96-9.15); SEG NEUTROPHILS PERCENT MAN 68 % (41-73); TOTAL CELLS COUNTED 100
[2021-11-14 05:59] LABS: Albumin, Blood 1.9 g/dL (3.4-5.0); Albumin/Globulin Ratio 0.5 (0.8-1.8); Bilirubin, Total 1.1 mg/dL (0.1-1.0); Bun/Creatinine Ratio 12.4 (12.0-20.0); Creatinine, Blood 0.65 mg/dL (0.40-1.00); Globulin, Blood 3.6 g/dL (2.2-4.0); Potassium, Blood 3.1 mmol/L (3.5-5.5); Total Protein, Blood 5.5 g/dL (6.4-8.2)
--- NOTE | 2021-11-14 18:58 | NUR ---
SHIFT SUMMARY PT A&O X 4. VSS. PT HAS BEEN IN QUITE A BIT OF PAIN ALL SHIFT, HAVE MEDICATED PER EMAR/MD ORDERS. PT REPORTS MINIMAL RESULTS FROM PAIN MEDICATION. DILAUDID Q2 & NORCO Q4. HAVE MEDICATED FOR C/O NAUSEA PER EMAR. APPETITE IS POOR. IS DRINKING FLUIDS. IS INDEPENDENT TO RESTROOM.
[2021-11-15 04:57] LABS: Hematocrit 30.7 % (33.0-51.0); Hemoglobin 10.1 g/dL (11.5-16.0); Mean Corpuscular HGB 26.8 pg (26.0-34.0); Mean Corpuscular HGB Conc 32.9 g/dL (31.5-36.5); Mean Corpuscular Volume 81 fL (80-100); Mean Platelet Volume 9.9 fL (9.1-12.4); Platelet Count 273 K/mm3 (150-400); RDW Standard Deviation 47.8 fL (35.1-46.3); Red Blood Cell Count 3.77 M/mm3 (3.80-5.20); White Blood Cell Count 9.83 K/mm3 (4.00-11.30)
[2021-11-15 05:16] LABS: Albumin/Globulin Ratio 0.5 (0.8-1.8); Bilirubin, Total 1.7 mg/dL (0.1-1.0); Bun/Creatinine Ratio 14.3 (12.0-20.0); Calcium, Blood 7.9 mg/dL (8.5-10.1); Creatinine, Blood 0.7 mg/dL (0.40-1.00); Potassium, Blood 3.8 mmol/L (3.5-5.5)
[2021-11-15 05:43] LABS: BAND PERCENT MAN 17 % (0-8); BASOPHILS ABSOLUTE MAN 0.09 K/mm3 (0.00-0.23); BASOPHILS PERCENT MAN 1 % (0-2); EOSINOPHILS PERCENT MAN 0 % (0-6); LYMPHOCYTES ABSOLUTE MAN 0.29 K/mm3 (0.84-5.20); LYMPHOCYTES PERCENT MAN 3 % (21-46); MONOCYTES ABSOLUTE MAN 0.19 K/mm3 (0.16-1.47); MONOCYTES PERCENT MAN 2 % (4-13); NEUTROPHILS ABSOLUTE MAN 9.24 K/mm3 (1.96-9.15); SEG NEUTROPHILS PERCENT MAN 77 % (41-73); TOTAL CELLS COUNTED 100
--- NOTE | 2021-11-15 06:05 | NUR ---
A&OX4. V/S WNL. PT STARTED ON O2@1-2LPM VIA NC. O2 SAT BETWEEN 85-87% PRIOR TO O2. O2 SAT MONITORED BY V/S MACHINE IN ROOM. INDEPEDANT IN ROOM. TACHY: 105-112 BPM. VOIDS W/O DIFFICULTY. NO BM THIS SHIFT. PRN DILAUDID CHANGED FROM 1 TO RANGE: 1MG-2MG. PRN DILAUDID 2 MGX2 & DILAUDID 1MGX3 FOR PAIN & PO NORCO X2 FOR PAIN PER EMAR. BP MEDS: MINIPRESS & CLONIDINE HELD. IV TO R) WRIST; INFUSING LR'S AT 200 ML/HR ORDERED. WILL CONTINUE TO MONITOR.
--- NOTE | 2021-11-15 18:18 | NUR ---
SHIFT SUMMARY A&O X 4. VSS. PIV INFILTRATED THIS MORNING. POWER GLIDE PLACED IN R UA BY AJAY RN. LR INFUSING AT 200MLS/HR. MEDICATED FOR PAIN PER EMAR/MD ORDERS WITH GOOD RESULTS TODAY. PT WENT TO MRI THIS AFTERNOON. HAS NOT BEEN ATTEMPTING TO EAT HER MEALS (CLR LIQ DIET), IS NOT WANTING TO EAT. IS ABLE TO TOLERATE WATER. NOT MEDICATED FOR NAUSEA THIS SHIFT. SHE REPORTS NUMEROUS BOUTS OF DIARRHEA TODAY. IS VOIDING WITHOUT DIFFICULTY.
[2021-11-16 02:33] LABS: Albumin, Blood 1.8 g/dL (3.4-5.0); Albumin/Globulin Ratio 0.5 (0.8-1.8); Bilirubin, Direct 1.7 mg/dL (0.0-0.3); Bilirubin, Indirect 0.3 mg/dL (0.1-0.7); Globulin, Blood 3.6 g/dL (2.2-4.0); Hematocrit 28.8 % (33.0-51.0); Hemoglobin 9.6 g/dL (11.5-16.0); Mean Corpuscular HGB 26.7 pg (26.0-34.0); Mean Corpuscular HGB Conc 33.3 g/dL (31.5-36.5); Mean Corpuscular Volume 80 fL (80-100); Mean Platelet Volume 10.4 fL (9.1-12.4); Platelet Count 205 K/mm3 (150-400); RDW Standard Deviation 46.8 fL (35.1-46.3); Red Blood Cell Count 3.59 M/mm3 (3.80-5.20); Total Protein, Blood 5.4 g/dL (6.4-8.2); White Blood Cell Count 10.54 K/mm3 (4.00-11.30)
[2021-11-16 03:14] LABS: BAND PERCENT MAN 13 % (0-8); BASOPHILS PERCENT MAN 0 % (0-2); EOSINOPHILS PERCENT MAN 0 % (0-6); LYMPHOCYTES ABSOLUTE MAN 0.21 K/mm3 (0.84-5.20); LYMPHOCYTES PERCENT MAN 2 % (21-46); MONOCYTES ABSOLUTE MAN 0.21 K/mm3 (0.16-1.47); MONOCYTES PERCENT MAN 2 % (4-13); NEUTROPHILS ABSOLUTE MAN 10.11 K/mm3 (1.96-9.15); SEG NEUTROPHILS PERCENT MAN 83 % (41-73); TOTAL CELLS COUNTED 100
--- NOTE | 2021-11-16 05:44 | NUR ---
ON 11/15/21 AFTER ROUNDS, JOB PLACEMENT OFFICER CALLED DR. ALLAN PT WAS GETTING EDETAMOUS. JOB PLACEMENT OFFICER TOLD PT HAD BEEN ADMITTED FOR PANCREATITIS & WAS HAVING EXCRUCIATING PAIN AND NO A/B HAD BEEN STARTED EVEN THOUGH AN ABCESS HAD BEEN FOUND IN HER PANCREAS. PROVIDER SAID, "HER WBC IS NOT ELEVATED AND TYPICALLY NO A/B ARE INITIATED UNLESS WBC'S ARE ELEVATED AND PT SPIKES A FEVER. SHE FURTER ADDED, "TAKE HER BP AND CALL ME BACK TO SEE IF WE CAN DECREASE HER IV FLUID RATE." ROUTINE V/S WERE TAKEN BY EVANGELISTA BOWERS. PT'S BP WNL & REPORTED TO DR. ALLAN. PROVIDER ORDERED, " DECREASE RATE OF LR TO 100 ML/HR." AT 2145, JOB PLACEMENT OFFICER WAS IN THE ROOM TO TO GIVE SCHEDULED MEDS. JOB PLACEMENT OFFICER NOTED PT WAS SHAKING UNCONTROLLABLY & SWEATING PROFUSELY. V/S WERE TAKEN. PT WAS TACHYCHARDIAC & TACHYPNEIC. TEMPORAL TEMP WAS WNL. JOB PLACEMENT OFFICER INFORMED DR. ALLAN OF FINDINGS. PROVIDER ORDERED, " TAKE AN ORAL TEMP." AT 2204, 10 MINS AFTER PT HAD A SIP OF COLD WATER, TEMP WAS TAKEN; PT'S TEMP: 101.4. ORALLY. JOB PLACEMENT OFFICER INFORMED DR. ALLAN OF FEVER. PROVIDER ORDERED LABS AND IV A/B. REFER TO V/S & ORDERS FOR DETAILS. @ 2330, RADIATION ONCOLOGISTYESSENIA IVEY CALLED TO REPORT A CRITICAL LACTIC ACID: 2.4. AT 2240, DR. ALLAN NOTIFIED OF CRITICAL LACTIC ACID. WILL CONTINUE TO MONITOR.
--- NOTE | 2021-11-16 06:08 | NUR ---
A&OX4. TACHYCARDIC, TACHYPNEIC AND FEVERISH FOUR HOURS INTO THIS SHIFT. ALL THREE RESOLVED NOW; V/S WNL. 02 @ 2LPM VIA NC. CONTINOUS PULSE OXYMETRY. POWERGLIDE TO R) UPPER ARM; NO BLOOD RETURN. LR'S INFUSING @ 100 ML/HR ORDERED. SCHEDULED BP MEDS: CLONIDINE & MINIPRESS LAST NIGHT. PRN IV DILAUDID GIVEN X5 & NORCO X3 GIVEN FOR SEVERE ABDOMINAL PAIN PER EMAR. PT HAD BEEN HAVING DIARRHEA FOR 16 HRS. PRN IMMODIUM GIVEN FOR DIARRHEA. DIARRHEA RESOLVED. PRN REGLAN & ZOFRAN FOR NAUSEA. NAUSEA RESOLVED. UNCOLLECTED U/A. WILL CONTINUE TO MONITOR.
[2021-11-16 07:57] LABS: Source, Urine Clean Catch
[2021-11-16 08:12] LABS: Appearance, Urine Clear (Clear); Bilirubin, Urine Neg (Neg); Blood, Urine Neg (Neg); Color, Urine Yellow (P-Yellow); Glucose Qualitative, Urine Neg (Neg); Ketones, Urine Neg (Neg); Leukocyte Esterase, Urine Neg (Neg); Nitrite, Urine Neg (Neg); Protein, Urine Neg (Neg); Urobilinogen, Urine NORM (Normal)
--- NOTE | 2021-11-16 13:10 | NUR ---
PT C/O NEW ONSET SORE THROAT. THROAT IS RED AND INFLAMED, ALSO ENDORSING ANDUJAR X 4 DAYS. DENIES RUNNY NOSE. REPORTED SXS TO DR. Alissa ROSA. WILL CONTINUE TO MONITOR.
[2021-11-16 15:25] LABS: Influenza A, PCR NEGATIVE (NEGATIVE); Influenza B, PCR NEGATIVE (NEGATIVE); Resp Syncytial Virus, PCR NEGATIVE (NEGATIVE); SARS-Cov-2 (COVID-19) PCR, MMC NEGATIVE (NEGATIVE)
--- NOTE | 2021-11-16 17:50 | NUR ---
SHIFT SUMMARY: NO ACUTE EVENTS. NEW ONSET SORE THROAT; NEGATIVE FOR COVID AND STREP. C/O FLANK AND ABD PAIN, INTERMITTENTLY SEVERE; MEDICATED PER EMAR WITH ADEQUATE RELIEF. IS WEARING O2 @ 2 L/MIN NC WHEN SLEEPING AND HAS CONTINUOUS OXIMETRY D/T NARCOTICS. APPETITE IS POOR, BUT IS TOLERATING CLEAR LIQ DIET. GETTING UP TO BR INDEPENDENTLY.
--- NOTE | 2021-11-17 04:47 | NUR ---
A&0X4. V/S WNL. SBA ON AMBULATION. O2 @2LPM VIA NC. CONTINOUS PULSE OXYMETRY. SCHEDULED HS BP MEDS: CLONIDINE & MINIPRESS HELD. POWERGLIDE TO R) UPPER ARM; INFUSING LR AT 100 ML/HR ORDERED. VOIDS W/O DIFFICULTY. SMALL LOOSE GREEN BM. PRN IMODIUM GIVEN FOR DIARRHEA ORDERED. PRN IV DILAUID X3 & NORCO X3 GIVEN FOR PAIN PER EMAR. ADA DIET. ACUCHECKS Q6HRS. PRN REGLAN GIVEN FOR NAUSEA. WILL CONTINUE TO MONITOR.
--- NOTE | 2021-11-17 05:17 | NUR ---
@0245, CHARGE NURSE, HARRIET INFORMED ROLLER PRINTER, " I RECEIVED CRITICAL VALUES ON YOUR PATIENT IN 256; BLOOD CULTURES POSITIVE FOR GRAM + COCCI AND I NOTIFIED DR. CRISTINA" @ 0320, PT HAVING CHILLS AND REPORTING INCREASING ABDOMINAL PAIN. PT PALE AND DIAPHORETIC LIKE THE PREVIOUS NIGHT. AT 0325, ROLLER PRINTER CALLED DR. CRISTINA. PROVIDER CALLED BACK AT 0335. PROVIDER ORDERED " GIVE ONE-TIME 1GRAM IV MEROPENEM." ORDER ENTERED AND IV MEROPENEM 1 GRAM GIVEN ORDERED ONCE IT WAS AVAILABLE. REFER TO EMAR.
[2021-11-17 05:37] LABS: BASOPHILS ABSOLUTE AUTO 0.03 K/mm3 (0.00-0.23); BASOPHILS PERCENT AUTO 0 % (0-2); EOSINOPHILS ABSOLUTE AUTO 0.28 K/mm3 (0.00-0.68); EOSINOPHILS PERCENT AUTO 3 % (0-6); Hematocrit 27.9 % (33.0-51.0); Hemoglobin 9.3 g/dL (11.5-16.0); IMMATURE GRAN ABSOLUTE AUTO 0.08 K/mm3 (0.00-0.10); IMMATURE GRAN PERCENT AUTO 1 % (0-1); LYMPHOCYTES ABSOLUTE AUTO 1.03 K/mm3 (0.84-5.20); LYMPHOCYTES PERCENT AUTO 12 % (21-46); MONOCYTES ABSOLUTE AUTO 0.74 K/mm3 (0.16-1.47); MONOCYTES PERCENT AUTO 9 % (4-13); Mean Corpuscular HGB 26.4 pg (26.0-34.0); Mean Corpuscular HGB Conc 33.3 g/dL (31.5-36.5); Mean Corpuscular Volume 79 fL (80-100); Mean Platelet Volume 11.2 fL (9.1-12.4); NEUTROPHILS ABSOLUTE AUTO 6.38 K/mm3 (1.96-9.15); NEUTROPHILS PERCENT AUTO 75 % (41-73); Platelet Count 156 K/mm3 (150-400); RDW Coefficient Variation 16.1 % (11.7-14.2); RDW Standard Deviation 46.3 fL (35.1-46.3); Red Blood Cell Count 3.52 M/mm3 (3.80-5.20); White Blood Cell Count 8.54 K/mm3 (4.00-11.30)
[2021-11-17 05:59] LABS: Albumin, Blood 1.6 g/dL (3.4-5.0); Albumin/Globulin Ratio 0.5 (0.8-1.8); Bilirubin, Total 1.9 mg/dL (0.1-1.0); Bun/Creatinine Ratio 18.5 (12.0-20.0); Calcium, Blood 7.4 mg/dL (8.5-10.1); Creatinine, Blood 0.6 mg/dL (0.40-1.00); Globulin, Blood 3.5 g/dL (2.2-4.0); Potassium, Blood 2.6 mmol/L (3.5-5.5); Total Protein, Blood 5.1 g/dL (6.4-8.2)
--- NOTE | 2021-11-17 19:51 | NUR ---
SHIFT SUMMARY: PATIENT WITH INCREASING SOB, 2+-3+ PITTING EDEMA IN BLE, AND ABD BLOATING THIS AFTERNOON; DR. CARTER MADE AWARE, DID NOT WISH TO ORDER LASIX AT THIS TIME, STATED OK TO D/C IVF BUT PT STILL HAS 250 ML OF KCL TO BE INFUSED ALONG WITH IV ABX. EDUCATED PT TO ELEVATE HER BLE AND TO REPORT ANY NEW OR WORSENING SXS TO NURSING STAFF IMMEDIATELY. CONTINUOUS PULSE OX SHOWS O2 SAT 91-94% ON RA. C/O ABD PAIN SEVERAL TIMES, MEDICATED PER EMAR WITH GOOD EFFECT. DIET ADVANCED TO LOW FIBER/LOW FAT/ADA; ATE ABOUT 6 BITES OF LUNCH BUT STOPPED D/T ABD PAIN, DID NOT EAT DINNER D/T ABD BLOATING. INDEPENDENT IN ROOM. HAS OUTPATIENT ERCP AND [facility] PL[facility].
--- NOTE | 2021-11-18 04:06 | NUR ---
SHIFT SUMMARY PT STS THAT SHE IS FEELING BETTER THAN SHE DID YESTERDAY AFTERNOON. PT WAS FEELING LIKE SHE WAS FULL OF FLUIDS, SO PREVIOUS RN STOPPED HER FLUIDS. PT HAVING AN EASIER TIME BREATHING AND IS NOT EDEMETOUS SHE PREVIOUSLY WAS. PT CONTINUES TO HAVE PAIN OFF AND ON AND IS MEDICATED PER EMAR APPROPRIATE. PT HAS NO COMPLAINTS AT THIS TIME.
[2021-11-18 05:36] LABS: Albumin, Blood 1.7 g/dL (3.4-5.0); Albumin/Globulin Ratio 0.5 (0.8-1.8); Bilirubin, Total 1.7 mg/dL (0.1-1.0); Bun/Creatinine Ratio 16.9 (12.0-20.0); Calcium, Blood 7.7 mg/dL (8.5-10.1); Creatinine, Blood 0.53 mg/dL (0.40-1.00); Globulin, Blood 3.6 g/dL (2.2-4.0); Total Protein, Blood 5.3 g/dL (6.4-8.2)
[2021-11-18 16:17] LABS: Bun/Creatinine Ratio 15.4 (12.0-20.0); Calcium, Blood 7.9 mg/dL (8.5-10.1); Creatinine, Blood 0.52 mg/dL (0.40-1.00); Potassium, Blood 3.8 mmol/L (3.5-5.5)
--- NOTE | 2021-11-18 18:04 | NUR ---
AOX4, PT INEPENDENT, CAN MKE NEEDS KNOWN, COOPERATIVE WIH MEDICTION AND CARE. PT STATING ABD PAIN OF 7/10 PRN DILAUDID AND NORCO GIVEN WITH GOOD RELIEF. PT IS TOLERATING MEALS AND NO N/V. PT IS HAVING LOOSE STOOLS, GI PANEL SENT TO LAB THIS AFTERNOON, STILL PENDING RESULTS. NO ACUTE CHANGES. CALL-LIGHT WITHIN REACH, BED IN LOWEST POSITION.
[2021-11-18 18:49] LABS: Adenovirus F 40/41 Not Detected (NOT DETECT); Astrovirus Not Detected (NOT DETECT); Campylobacter Sp Not Detected (NOT DETECT); Cryptosporidium Not Detected (NOT DETECT); Cyclospora Cayetanensis Not Detected (NOT DETECT); E. Coli O157 Not Detected (NOT DETECT); Entamoeba Histolytica Not Detected (NOT DETECT); Enteroaggregative E. coli-EAEC Not Detected (NOT DETECT); Enteropathogenic E. coli-EPEC Not Detected (NOT DETECT); Enterotoxigenic E. coli-ETEC Not Detected (NOT DETECT); Giardia Lamblia Not Detected (NOT DETECT); Norovirus GI/GII Not Detected (NOT DETECT); Plesiomonas Shigelloides Not Detected (NOT DETECT); Salmonella Sp Not Detected (NOT DETECT); Shiga Toxin-prod E. coli-STEC Not Detected (NOT DETECT); Shigella/Enteroin E. coli-EIEC Not Detected (NOT DETECT); Vibrio Cholerae Not Detected (NOT DETECT); Vibrio Sp Not Detected (NOT DETECT); Yersinia Enterocolitica Not Detected (NOT DETECT)
[2021-11-18 18:50] LABS: Rotavirus A Not Detected (NOT DETECT); Sapovirus Not Detected (NOT DETECT)
--- NOTE | 2021-11-19 04:18 | NUR ---
SHIFT SUMMARY ADMITTED FOR ACUTE PANCREATITIS. FULL CODE. Q6 CHEMSTICKS. LOW FIBER & FAT/ADA DIET, TOLERATED OKAY. SHE DOES MENTION SHE NEEDS PAIN RX FOR MEALS. CONTINUOUS PULSE OX. ON RA. POWERGLIDE IN RUE. PAIN MEDICATION GIVEN THIS SHIFT. NAUSEA MEDICATION GIVEN THIS SHIFT. SHE IS INDEPENDENT, A&O X4. WILL HAVE ERCP AT [facility] NEXT MONTH.
[2021-11-19 07:22] LABS: BASOPHILS ABSOLUTE AUTO 0.05 K/mm3 (0.00-0.23); BASOPHILS PERCENT AUTO 0 % (0-2); EOSINOPHILS ABSOLUTE AUTO 0.15 K/mm3 (0.00-0.68); EOSINOPHILS PERCENT AUTO 1 % (0-6); Hematocrit 26.7 % (33.0-51.0); Hemoglobin 9.2 g/dL (11.5-16.0); IMMATURE GRAN ABSOLUTE AUTO 0.32 K/mm3 (0.00-0.10); IMMATURE GRAN PERCENT AUTO 2 % (0-1); LYMPHOCYTES ABSOLUTE AUTO 1.72 K/mm3 (0.84-5.20); LYMPHOCYTES PERCENT AUTO 13 % (21-46); MONOCYTES PERCENT AUTO 6 % (4-13); Mean Corpuscular HGB 26.9 pg (26.0-34.0); Mean Corpuscular HGB Conc 34.5 g/dL (31.5-36.5); Mean Corpuscular Volume 78 fL (80-100); Mean Platelet Volume 11.3 fL (9.1-12.4); NEUTROPHILS ABSOLUTE AUTO 10.76 K/mm3 (1.96-9.15); NEUTROPHILS PERCENT AUTO 78 % (41-73); Platelet Count 193 K/mm3 (150-400); RDW Coefficient Variation 16.3 % (11.7-14.2); RDW Standard Deviation 46.4 fL (35.1-46.3); Red Blood Cell Count 3.42 M/mm3 (3.80-5.20)
[2021-11-19 07:48] LABS: Bun/Creatinine Ratio 14.4 (12.0-20.0); Calcium, Blood 7.9 mg/dL (8.5-10.1); Creatinine, Blood 0.49 mg/dL (0.40-1.00); Potassium, Blood 3.3 mmol/L (3.5-5.5)
[2021-11-19 12:54] LABS: Albumin, Blood 1.8 g/dL (3.4-5.0); Albumin/Globulin Ratio 0.4 (0.8-1.8); Bilirubin, Direct 0.7 mg/dL (0.0-0.3); Bilirubin, Indirect 0.6 mg/dL (0.1-0.7); Bilirubin, Total 1.3 mg/dL (0.1-1.0); Globulin, Blood 5.1 g/dL (2.2-4.0); Total Protein, Blood 6.9 g/dL (6.4-8.2)
[2021-11-20 04:46] LABS: BASOPHILS ABSOLUTE AUTO 0.03 K/mm3 (0.00-0.23); BASOPHILS PERCENT AUTO 0 % (0-2); EOSINOPHILS ABSOLUTE AUTO 0.24 K/mm3 (0.00-0.68); EOSINOPHILS PERCENT AUTO 2 % (0-6); Hematocrit 27.6 % (33.0-51.0); Hemoglobin 9.1 g/dL (11.5-16.0); IMMATURE GRAN ABSOLUTE AUTO 0.31 K/mm3 (0.00-0.10); IMMATURE GRAN PERCENT AUTO 3 % (0-1); LYMPHOCYTES ABSOLUTE AUTO 2.62 K/mm3 (0.84-5.20); LYMPHOCYTES PERCENT AUTO 25 % (21-46); MONOCYTES ABSOLUTE AUTO 0.82 K/mm3 (0.16-1.47); MONOCYTES PERCENT AUTO 8 % (4-13); Mean Corpuscular HGB 25.9 pg (26.0-34.0); Mean Corpuscular Volume 78 fL (80-100); Mean Platelet Volume 11.9 fL (9.1-12.4); NEUTROPHILS ABSOLUTE AUTO 6.35 K/mm3 (1.96-9.15); NEUTROPHILS PERCENT AUTO 61 % (41-73); Platelet Count 283 K/mm3 (150-400); RDW Coefficient Variation 16.4 % (11.7-14.2); RDW Standard Deviation 46.7 fL (35.1-46.3); Red Blood Cell Count 3.52 M/mm3 (3.80-5.20); White Blood Cell Count 10.37 K/mm3 (4.00-11.30)
[2021-11-20 05:10] LABS: Albumin, Blood 1.8 g/dL (3.4-5.0); Albumin/Globulin Ratio 0.4 (0.8-1.8); Bilirubin, Total 0.8 mg/dL (0.1-1.0); Bun/Creatinine Ratio 15.3 (12.0-20.0); Calcium, Blood 8.2 mg/dL (8.5-10.1); Creatinine, Blood 0.52 mg/dL (0.40-1.00); Globulin, Blood 4.1 g/dL (2.2-4.0); Potassium, Blood 3.7 mmol/L (3.5-5.5); Total Protein, Blood 5.9 g/dL (6.4-8.2)
--- NOTE | 2021-11-20 07:02 | NUR ---
SLEPT WELL OVERNIGHT. MEDICATED TWICE WITH NORCO FOR UPPER ABDOMINAL PAIN. EACH TIME SHE WAS BACK TO SLEEP AFTER 10-15 MINUTES. Jenn IS ANXIOUS TO BE DISCHARGED SO SHE MAY HEAD TO [facility] FOR A PLANNED ERCP. NO OTHER CHANGES OVERNIGHT
[2021-11-20] MEDS ORDERED: Norco 5-325 Ta1 EACH PO (11:08)
[2021-11-20] MEDS ORDERED: CEFTRIAXONE2 G1 IV (15:28)
== END 2021-11-20 17:25 | disposition home or self-care (01) | DRG 862 ==
LOC: ER 04:39 → MEDS 04:40
PROVIDERS: Emergency Medicine; Family Medicine; Hospitalist; Nurse Practitioner Acute Care; Student in an Organized Health Care Education/Training Program; ADMIT Family Medicine
DX: T81.43XA Infection following a procedure, organ and space surgical site, initial encounter (principal); A40.8 Other streptococcal sepsis; J96.01 Acute respiratory failure with hypoxia; K85.90 Acute pancreatitis without necrosis or infection, unspecified; T81.44XA Sepsis following a procedure, initial encounter; Z20.822 Contact with and (suspected) exposure to COVID-19; F17.210 Nicotine dependence, cigarettes, uncomplicated; F31.9 Bipolar disorder, unspecified; G47.00 Insomnia, unspecified; K21.9 Gastro-esophageal reflux disease without esophagitis; G43.909 Migraine, unspecified, not intractable, without status migrainosus; J44.9 Chronic obstructive pulmonary disease, unspecified; E11.9 Type 2 diabetes mellitus without complications; B95.4 Other streptococcus as the cause of diseases classified elsewhere; Z98.51 Tubal ligation status; Z90.13 Acquired absence of bilateral breasts and nipples; Z90.722 Acquired absence of ovaries, bilateral; Z90.710 Acquired absence of both cervix and uterus; Z90.49 Acquired absence of other specified parts of digestive tract; Z98.890 Other specified postprocedural states; Z85.3 Personal history of malignant neoplasm of breast; Z88.0 Allergy status to penicillin; Z88.1 Allergy status to other antibiotic agents; Z91.048 Other nonmedicinal substance allergy status; Z91.040 Latex allergy status; Z88.8 Allergy status to other drugs, medicaments and biological substances; Z91.018 Allergy to other foods; Z79.4 Long term (current) use of insulin; Z79.899 Other long term (current) drug therapy
CPT/HCPCS: 0241U; 36415; 74177; 74181; 80048; 80053; 80076; 81003; 81025; 82330; 82947; 83605; 83690; 83735; 84132; 84145; 85025; 85027; 87040; 87081; 87147; 87430; 87507; 94760; 94762; 96361; 96374-59; 96375; 96376; 99285-25; A9270; C1751; C9113; G0378; J1170; J1650; J2185; J2270; J2405; J2765; J3010; J3370; J3480; J7030; J7050; J7060; J7120; Q9967

== ENCOUNTER 2021-11-26 14:32 | Emergency (ER) | payer OTHER ==
[~2021-11-26] VITALS: Ht 165.1 cm; Wt 67.1 kg
[~2021-11-26 14:32] MED LIST changes: +CEFTRIAXONE2 G1 IV
== END 2021-11-26 19:12 | disposition home or self-care (01) ==
LOC: ER 14:32
DX: R25.2 Cramp and spasm (principal); K21.9 Gastro-esophageal reflux disease without esophagitis; J44.9 Chronic obstructive pulmonary disease, unspecified; E11.9 Type 2 diabetes mellitus without complications; Z79.899 Other long term (current) drug therapy; Z79.4 Long term (current) use of insulin; Z88.0 Allergy status to penicillin; Z88.1 Allergy status to other antibiotic agents; Z91.040 Latex allergy status; Z91.030 Bee allergy status; Z91.09 Other allergy status, other than to drugs and biological substances
CPT/HCPCS: 83735; 96365; 99283-25; J3475

== ENCOUNTER → 2021-11-28 | Outpatient (CLI) | payer OTHER ==
[2021-11-28 15:23] LABS: Bun/Creatinine Ratio 30.3 (12.0-20.0); Calcium, Blood 9.1 mg/dL (8.5-10.1); Creatinine, Blood 0.53 mg/dL (0.40-1.00); Magnesium, Blood 1.4 mg/dL (1.6-2.4)
== END | disposition home or self-care (01) ==
LOC: LAB 13:43 → LAB SHORT 13:43
PROVIDERS: Physician Assistant
DX: K85.90 Acute pancreatitis without necrosis or infection, unspecified (principal); E83.42 Hypomagnesemia
CPT/HCPCS: 80048; 83735

== ENCOUNTER → 2021-12-03 | Outpatient (CLI) | payer OTHER | END | disposition home or self-care (01) | LOC: LAB SHORT 08:10 → LAB 08:10 | DX: K86.1 Other chronic pancreatitis (principal) | CPT/HCPCS: 82653 ==

== ENCOUNTER → 2022-01-08 | Outpatient (CLI) | payer OTHER ==
[2022-01-08 18:57] LABS: BASOPHILS ABSOLUTE AUTO 0.06 K/mm3 (0.00-0.23); BASOPHILS PERCENT AUTO 1 % (0-2); EOSINOPHILS ABSOLUTE AUTO 0.25 K/mm3 (0.00-0.68); EOSINOPHILS PERCENT AUTO 3 % (0-6); Hematocrit 34.8 % (33.0-51.0); IMMATURE GRAN ABSOLUTE AUTO 0.01 K/mm3 (0.00-0.10); IMMATURE GRAN PERCENT AUTO 0 % (0-1); LYMPHOCYTES ABSOLUTE AUTO 3.66 K/mm3 (0.84-5.20); LYMPHOCYTES PERCENT AUTO 48 % (21-46); MONOCYTES ABSOLUTE AUTO 0.58 K/mm3 (0.16-1.47); MONOCYTES PERCENT AUTO 8 % (4-13); Mean Corpuscular HGB 26.3 pg (26.0-34.0); Mean Corpuscular HGB Conc 31.6 g/dL (31.5-36.5); Mean Corpuscular Volume 83 fL (80-100); Mean Platelet Volume 10.3 fL (9.1-12.4); NEUTROPHILS ABSOLUTE AUTO 3.09 K/mm3 (1.96-9.15); NEUTROPHILS PERCENT AUTO 40 % (41-73); Platelet Count 339 K/mm3 (150-400); RDW Coefficient Variation 18.1 % (11.7-14.2); Red Blood Cell Count 4.19 M/mm3 (3.80-5.20); White Blood Cell Count 7.65 K/mm3 (4.00-11.30)
[2022-01-08 19:02] LABS: Anion Gap 3 mmol/L (6-16); Blood Urea Nitrogen 13 mg/dL (8-24); Bun/Creatinine Ratio 14.5 (12.0-20.0); CO2, Blood 24 mmol/L (21-32); Calcium, Blood 9.3 mg/dL (8.5-10.1); Chloride, Blood 111 mmol/L (98-108); Cholesterol 115 mg/dL (50-200); Glomerular Filtration Rate 79 (60-); Glucose, Blood 102 mg/dL (70-99); HDL Cholesterol 58 mg/dL (>39); LDL/HDL RATIO 0.7; Low Density Lipoprotein Chol 39 mg/dL (0-110); Magnesium, Blood 1.6 mg/dL (1.6-2.4); Potassium, Blood 3.7 mmol/L (3.5-5.5); Sodium, Blood 138 mmol/L (136-145); Triglycerides 92 mg/dL (30-160); Very Low Density Lipoprot Chol 18 mg/dL (6-32)
== END | disposition home or self-care (01) ==
LOC: LAB 18:34 → LAB SHORT 18:34
PROVIDERS: Physician Assistant
DX: E78.5 Hyperlipidemia, unspecified (principal); E83.42 Hypomagnesemia; K86.1 Other chronic pancreatitis; E11.9 Type 2 diabetes mellitus without complications
CPT/HCPCS: 80048; 80061; 83036; 83735; 85025

== ENCOUNTER → 2022-10-09 | Outpatient (CLI) | payer OTHER ==
[2022-10-09 19:49] LABS: BASOPHILS ABSOLUTE AUTO 0.04 K/mm3 (0.00-0.23); BASOPHILS PERCENT AUTO 0 % (0-2); EOSINOPHILS ABSOLUTE AUTO 0.23 K/mm3 (0.00-0.68); EOSINOPHILS PERCENT AUTO 2 % (0-6); Hematocrit 37.1 % (33.0-51.0); Hemoglobin 11.7 g/dL (11.5-16.0); IMMATURE GRAN ABSOLUTE AUTO 0.02 K/mm3 (0.00-0.10); IMMATURE GRAN PERCENT AUTO 0 % (0-1); LYMPHOCYTES ABSOLUTE AUTO 2.98 K/mm3 (0.84-5.20); LYMPHOCYTES PERCENT AUTO 27 % (21-46); MONOCYTES PERCENT AUTO 7 % (4-13); Mean Corpuscular HGB 24.7 pg (26.0-34.0); Mean Corpuscular HGB Conc 31.5 g/dL (31.5-36.5); Mean Corpuscular Volume 78 fL (80-100); Mean Platelet Volume 10.6 fL (9.1-12.4); NEUTROPHILS PERCENT AUTO 63 % (41-73); Platelet Count 362 K/mm3 (150-400); RDW Coefficient Variation 18.3 % (11.7-14.2); RDW Standard Deviation 52.3 fL (35.1-46.3); Red Blood Cell Count 4.73 M/mm3 (3.80-5.20); White Blood Cell Count 10.97 K/mm3 (4.00-11.30)
[2022-10-09 19:52] LABS: Magnesium, Blood 2.2 mg/dL (1.6-2.4)
[2022-10-09 20:01] LABS: Bun/Creatinine Ratio 11.6 (12.0-20.0); Calcium, Blood 9.3 mg/dL (8.5-10.1); Creatinine, Blood 0.86 mg/dL (0.40-1.00); Potassium, Blood 3.8 mmol/L (3.5-5.5); Thyroid Stimulating Hormone 2.46 uIU/mL (0.360-4.800)
== END | disposition home or self-care (01) ==
LOC: LAB 18:24 → LAB SHORT 18:24
PROVIDERS: Physician Assistant
DX: K86.1 Other chronic pancreatitis (principal); E08.69 Diabetes mellitus due to underlying condition with other specified complication; Z79.899 Other long term (current) drug therapy
CPT/HCPCS: 80048; 82306; 83036; 83735; 84443; 85025

== ENCOUNTER 2023-06-10 15:23 | Emergency (ER) | payer OTHER ==
[~2023-06-10] VITALS: Ht 165.1 cm; Wt 59.0 kg
[2023-06-10 16:02] LABS: BASOPHILS ABSOLUTE AUTO 0.06 K/mm3 (0.00-0.23); BASOPHILS PERCENT AUTO 1 % (0-2); EOSINOPHILS ABSOLUTE AUTO 0.26 K/mm3 (0.00-0.68); EOSINOPHILS PERCENT AUTO 2 % (0-6); Hematocrit 35.7 % (33.0-51.0); Hemoglobin 10.9 g/dL (11.5-16.0); IMMATURE GRAN ABSOLUTE AUTO 0.05 K/mm3 (0.00-0.10); IMMATURE GRAN PERCENT AUTO 0 % (0-1); LYMPHOCYTES ABSOLUTE AUTO 2.79 K/mm3 (0.84-5.20); LYMPHOCYTES PERCENT AUTO 23 % (21-46); MONOCYTES ABSOLUTE AUTO 1.04 K/mm3 (0.16-1.47); MONOCYTES PERCENT AUTO 9 % (4-13); Mean Corpuscular HGB 23.4 pg (26.0-34.0); Mean Corpuscular HGB Conc 30.5 g/dL (31.5-36.5); Mean Corpuscular Volume 77 fL (80-100); Mean Platelet Volume 9.2 fL (9.1-12.4); NEUTROPHILS ABSOLUTE AUTO 7.88 K/mm3 (1.96-9.15); NEUTROPHILS PERCENT AUTO 65 % (41-73); Platelet Count 457 K/mm3 (150-400); RDW Coefficient Variation 20.2 % (11.7-14.2); RDW Standard Deviation 55.1 fL (35.1-46.3); Red Blood Cell Count 4.65 M/mm3 (3.80-5.20); White Blood Cell Count 12.08 K/mm3 (4.00-11.30)
[2023-06-10 16:27] LABS: Alanine Aminotransfer (ALT/SGP 20 U/L (12-78); Albumin, Blood 2.9 g/dL (3.4-5.0); Albumin/Globulin Ratio 0.5 (0.8-1.8); Alk Phos 255 U/L (50-136); Anion Gap Unable to Calculate mmol/L (6-16); Aspartate Aminotrans (AST/SGOT 15 U/L (12-37); Bilirubin, Total 0.2 mg/dL (0.1-1.0); Blood Urea Nitrogen 12 mg/dL (8-24); Bun/Creatinine Ratio 16.5 (12.0-20.0); CO2, Blood 30 mmol/L (21-32); Calcium, Blood 9.2 mg/dL (8.5-10.1); Chloride, Blood 102 mmol/L (98-108); Creatinine, Blood 0.73 mg/dL (0.40-1.00); Globulin, Blood 5.8 g/dL (2.2-4.0); Glomerular Filtration Rate 100 (60-); Glucose, Blood 127 mg/dL (70-99); Potassium, Blood 3.9 mmol/L (3.5-5.5); Sodium, Blood 130 mmol/L (136-145); Total Protein, Blood 8.7 g/dL (6.4-8.2)
[2023-06-10] MEDS ORDERED: Ipratropium Bromide INH 0.02% 0.5 mg/2.5ML Vial INH SCH (18:00)
[2023-06-10] MEDS ORDERED: MethylPREDNISolone Sod Succ 125 MG Vial IV ONE (18:00)
[2023-06-10] MEDS ORDERED: Albuterol 2.5 MG/3 ML VIAL INH SCH (18:00)
[2023-06-10 18:58] LABS: Influenza A, PCR NEGATIVE (NEGATIVE); Influenza B, PCR NEGATIVE (NEGATIVE); Resp Syncytial Virus, PCR NEGATIVE (NEGATIVE); SARS-Cov-2 (COVID-19) PCR, MMC NEGATIVE (NEGATIVE)
[2023-06-10] MEDS ORDERED: AZIT250 PO ×2 (21:24)
[2023-06-10] MEDS ORDERED: PRED20 PO ×2 (21:24)
[2023-06-10 21:30] VITALS: BP 138/78
== END 2023-06-10 21:40 | disposition home or self-care (01) ==
LOC: ER 15:23
PROVIDERS: Emergency Medicine; Physician Assistant
DX: J44.1 Chronic obstructive pulmonary disease with (acute) exacerbation (principal); K21.9 Gastro-esophageal reflux disease without esophagitis; E11.9 Type 2 diabetes mellitus without complications; F31.9 Bipolar disorder, unspecified; F17.210 Nicotine dependence, cigarettes, uncomplicated; Z88.1 Allergy status to other antibiotic agents; Z88.0 Allergy status to penicillin; Z88.8 Allergy status to other drugs, medicaments and biological substances; Z88.2 Allergy status to sulfonamides; Z91.030 Bee allergy status; Z91.040 Latex allergy status; Z91.048 Other nonmedicinal substance allergy status; Z79.899 Other long term (current) drug therapy; Z79.4 Long term (current) use of insulin; Z20.822 Contact with and (suspected) exposure to COVID-19
CPT/HCPCS: 0241U; 71046; 80053; 83880; 84484; 85025; 93005; 93010; 94644; 94664; 96374; 99285-25; J2930

== ENCOUNTER 2023-06-12 11:11 | Inpatient (IN) | payer OTHER ==
[~2023-06-12] VITALS: Ht 160 cm; Wt 68.0 kg
[2023-06-12] MEDS ORDERED: MethylPREDNISolone Sod Succ 125 MG Vial IV ONE (11:50)
[2023-06-12 12:05] LABS: BASOPHILS ABSOLUTE AUTO 0.03 K/mm3 (0.00-0.23); BASOPHILS PERCENT AUTO 0 % (0-2); EOSINOPHILS ABSOLUTE AUTO 0.03 K/mm3 (0.00-0.68); EOSINOPHILS PERCENT AUTO 0 % (0-6); Hematocrit 34.8 % (33.0-51.0); Hemoglobin 10.8 g/dL (11.5-16.0); IMMATURE GRAN ABSOLUTE AUTO 0.06 K/mm3 (0.00-0.10); IMMATURE GRAN PERCENT AUTO 1 % (0-1); LYMPHOCYTES ABSOLUTE AUTO 1.04 K/mm3 (0.84-5.20); LYMPHOCYTES PERCENT AUTO 10 % (21-46); MONOCYTES PERCENT AUTO 2 % (4-13); Mean Corpuscular HGB 23.5 pg (26.0-34.0); Mean Corpuscular Volume 76 fL (80-100); Mean Platelet Volume 9.2 fL (9.1-12.4); NEUTROPHILS ABSOLUTE AUTO 9.43 K/mm3 (1.96-9.15); NEUTROPHILS PERCENT AUTO 87 % (41-73); Platelet Count 471 K/mm3 (150-400); RDW Coefficient Variation 20.2 % (11.7-14.2); RDW Standard Deviation 54.3 fL (35.1-46.3); White Blood Cell Count 10.79 K/mm3 (4.00-11.30)
[2023-06-12] MEDS ORDERED: Ipratropium/Albuterol SulF 2.5-0.5MG/3 ML Amp INH ONE (12:05)
[2023-06-12] MEDS ORDERED: Azithromycin 500 MG in NS 250 ML IV ONE (12:05)
[2023-06-12] MEDS ORDERED: Albuterol 2.5 MG/3 ML VIAL INH SCH ×2 (12:05→13:25)
[2023-06-12 12:51] LABS: Albumin, Blood 3.1 g/dL (3.4-5.0); Albumin/Globulin Ratio 0.5 (0.8-1.8); Bilirubin, Total 0.3 mg/dL (0.1-1.0); Bun/Creatinine Ratio 25.4 (12.0-20.0); Calcium, Blood 9.5 mg/dL (8.5-10.1); Creatinine, Blood 0.67 mg/dL (0.40-1.00); Globulin, Blood 5.9 g/dL (2.2-4.0)
[2023-06-12 12:57] LABS: Base Excess Venous 3.5 mmol/L; Bicarbonate Venous 26.9 mmol/L (24.0-30.0); PCO2 Venous 49.7 mmHg (38-42); pH Blood Venous 7.37 (7.34-7.37)
[2023-06-12 13:42] LABS: Adenovirus Not Detected (NOT DETECT); Bordetella pertussis Not Detected (NOT DETECT); Chlamydophila pneumoniae Not Detected (NOT DETECT); Coronavirus 229E Not Detected (NOT DETECT); Coronavirus HKU1 Not Detected (NOT DETECT); Coronavirus NL63 Not Detected (NOT DETECT); Coronavirus OC43 Not Detected (NOT DETECT); Human Metapneumovirus Not Detected (NOT DETECT); Human Rhinovirus/Enterovirus Detected (NOT DETECT); Influenza A/2009-H1 Not Detected (NOT DETECT); Influenza A/H1 Not Detected (NOT DETECT); Influenza A/H3 Not Detected (NOT DETECT); Influenza B Not Detected (NOT DETECT); Mycoplasma pneumoniae Not Detected (NOT DETECT); Parainfluenza Virus 1 Not Detected (NOT DETECT); Parainfluenza Virus 2 Not Detected (NOT DETECT); Parainfluenza Virus 3 Not Detected (NOT DETECT); Parainfluenza Virus 4 Not Detected (NOT DETECT); Respiratory Syncytial Virus Not Detected (NOT DETECT); SARS-Cov-2 (COVID-19), BioFire Not Detected (NOT DETECT)
[2023-06-12] MEDS ORDERED: FLU VACC QS2023-24(6MOS UP)/PF 60 MCG/0.5 ML SYRINGE IM SCH (14:00)
[2023-06-12] MEDS ORDERED: Lactated Ringer's 1,000 ML IV SCH (14:00)
[2023-06-12] MEDS ORDERED: Acetaminophen 500 MG Tab PO PRN (14:05)
[2023-06-12] MEDS ORDERED: HYDROcodone 5-APAP 325 TAB PO PRN (14:05)
[2023-06-12] MEDS ORDERED: Polyethylene Glycol 3350 17 gm PO PRN (14:05)
[2023-06-12] MEDS ORDERED: Mag Sulfate 1 GM/D5% 100ML 100 ML IV STA (14:12)
[2023-06-12 15:06] VITALS: BP 109/64
[2023-06-12] MEDS ORDERED: OXYC10ER PO ×2 (15:23)
[2023-06-12] MEDS ORDERED: MORP30 PO ×2 (15:23)
[2023-06-12] MEDS ORDERED: BACL10 PO ×2 (15:25)
[2023-06-12] MEDS ORDERED: THERA-D2000 UNIT PO ×2 (15:26)
[2023-06-12] MEDS ORDERED: MOBIC15 MG PO ×2 (15:27)
[2023-06-12] MEDS ORDERED: OMEP20ER PO ×2 (15:27)
[2023-06-12] MEDS ORDERED: PRAZ2 PO ×2 (15:27)
[2023-06-12] MEDS ORDERED: Albuterol 2.5 MG/3 ML VIAL INH PRN (15:50)
[2023-06-12] MEDS ORDERED: Ipratropium/Albuterol SulF 2.5-0.5MG/3 ML Amp INH SCH (15:50)
[2023-06-12] MEDS ORDERED: MethylPREDNISolone Sod Succ 125 MG Vial IV SCH (16:00)
--- NOTE | 2023-06-12 16:13 | NUR ---
ADMISSION: PT ARRIVED TO PCU 6 VIA MALENA @1530. ABLE TO TRANSFER IND TO BED. ALERT AND ORIENTED X4, ABLE TO FOLLOW COMMANDS AND MAKE NEEDS KNOWN. STRENGTH WEAK, EQUAL BILATERALLY. PEERLA. COOPERATIVE WITH CARE. ANXIOUS AT TIMES. BP STABLE, HR SINUS RHYTHM 90'S. DENIES CP/PRESSURE. PULSES STRONG AND EQUAL THROUGHOUT. SPO2 >92% ON 3L NC, PT ROOM AIR AT BASELINE. RESPIRAIONS SHALLOW. LUNG SOUNDS COARSE WITH WHEEZE THROUGHOUT. PT STATES WEARING HUSBANDS OXYGEN X4 DAYS. AFEBRILE. ABDOMEN SOFT, NON TENDER. BOWEL SOUNDS +. PT WITH HX OF CHRONIC PANCREATITIS, DENIES PAIN AT THIS TIME. HOME MED LIST REVIEWED AND UPDATED. CBG 335 UPON ARRIVAL, WILL COVER PER EMAR. LR GTT @100ML/HR IN L. AC. PT ORIENTED TO ROOM AND CALL LIGHT SYSTEM, BED IN LOW, CALL LIGHT IN REACH.
[2023-06-12] MEDS ORDERED: Insulin Human Lispro 100 Units/ML 3ML Syringe SC SCH (16:30)
[2023-06-12 20:37] VITALS: BP 109/67
[2023-06-12] MEDS ORDERED: Docusate Sodium/Senna 1 Tab PO SCH (21:00)
[2023-06-12] MEDS ORDERED: Lactobacil 2-S.Thermo-Bifido 1 1 Cap PO SCH (21:00)
[2023-06-12] MEDS ORDERED: Ondansetron 4 MG SoluTab SL PRN (21:55)
[2023-06-12] MEDS ORDERED: Morphine Sulfate 15 MG TABCR PO SCH (22:39)
[2023-06-12] MEDS ORDERED: OxyCODONE HCL 5 MG TAB PO PRN (22:40)
[2023-06-12] MEDS ORDERED: RisperiDONE 0.25 MG Tab PO SCH (23:00)
[2023-06-12 23:03] VITALS: BP 133/83
[2023-06-13 04:09] VITALS: BP 108/76
[2023-06-13 04:59] LABS: Hematocrit 32.9 % (33.0-51.0); Hemoglobin 10.1 g/dL (11.5-16.0); Mean Corpuscular HGB 23.5 pg (26.0-34.0); Mean Corpuscular HGB Conc 30.7 g/dL (31.5-36.5); Mean Corpuscular Volume 77 fL (80-100); Mean Platelet Volume 9.5 fL (9.1-12.4); Platelet Count 434 K/mm3 (150-400); RDW Coefficient Variation 19.9 % (11.7-14.2); White Blood Cell Count 8.89 K/mm3 (4.00-11.30)
--- NOTE | 2023-06-13 05:20 | NUR ---
SHIFT SUMMARY ASSUMED CARE OF PT AT 1900. PT IS A/OX4. HEART SOUNDS REGULAR. LUNG SOUNDS CORSE WITH WHEEZES T/O. PT WORE 3L NC A MAJORITY OF THE NOC. PT ON 2L NC OF 399. PT NEEDED ONE BEATHING TREATMENT DUE TO SOB. PT C/O DIARRHEA. PT 1P SBA TO BATHROOM. PT SWEATING ALL NOC, LINENS CHANGED. PT WAS ABLE TO SLEEP DURING THE NOC.
[2023-06-13 05:32] LABS: Magnesium, Blood 2.4 mg/dL (1.6-2.4)
[2023-06-13 05:53] LABS: Albumin, Blood 2.8 g/dL (3.4-5.0); Anion Gap Unable to Calculate mmol/L (6-16); Blood Urea Nitrogen 16 mg/dL (8-24); Bun/Creatinine Ratio 25.1 (12.0-20.0); CO2, Blood 31 mmol/L (21-32); Calcium, Blood 9.4 mg/dL (8.5-10.1); Chloride, Blood 109 mmol/L (98-108); Creatinine, Blood 0.64 mg/dL (0.40-1.00); Glomerular Filtration Rate 108 (60-); Glucose, Blood 212 mg/dL (70-99); Phosphorus, Blood 3.4 mg/dL (2.5-4.9); Potassium, Blood 4.5 mmol/L (3.5-5.5); Sodium, Blood 139 mmol/L (136-145)
[2023-06-13] MEDS ORDERED: Omeprazole 20 MG CapCR PO SCH (07:30)
[2023-06-13 08:24] VITALS: BP 127/73
[2023-06-13] MEDS ORDERED: Amylase/Lipase/Protease DR Cap 12,000 PO SCH (08:30)
[2023-06-13] MEDS ORDERED: Baclofen 10 MG Tab PO SCH (09:00)
[2023-06-13] MEDS ORDERED: Cholecalciferol 1000 Unit Tablet (=25MCG) PO SCH (09:00)
[2023-06-13] MEDS ORDERED: Insulin Glargine-Yfgn 100 Unit/mL 3 ML SYR SC SCH ×3 (09:00→10:00)
[2023-06-13] MEDS ORDERED: Gabapentin 400 MG Cap PO SCH (09:00)
[2023-06-13] MEDS ORDERED: DULoxetine HCL 60 MG Capsule DR PO SCH (09:00)
[2023-06-13] MEDS ORDERED: Enoxaparin 40 MG/0.4 ML SYR SC SCH (09:00)
[2023-06-13] MEDS ORDERED: Morphine Sulfate 30 MG TabCR PO SCH (09:00)
[2023-06-13] MEDS ORDERED: Loratadine 10 MG Tab PO SCH (09:00)
[2023-06-13] MEDS ORDERED: Topiramate 25 MG Tab PO SCH (09:00)
[2023-06-13] MEDS ORDERED: CloNIDine HCl 0.2 MG Tab PO SCH (09:00)
[2023-06-13] MEDS ORDERED: Azithromycin 500 MG in NS 250 ML IV SCH (12:00)
[2023-06-13 14:50] VITALS: BP 108/70
--- NOTE | 2023-06-13 17:11 | NUR ---
SHIFT SUMMARY. PT ALERT AND ORIENTED X4, ABLE TO FOLLOW COMMANDS AND MAKE NEEDS KNOWN. ANXIOUS AT TIMES. BP AND HR STABLE. PT ABLE TO TITRATE TO ROOM AIR THIS SHIFT, SPO2 >90%. LUNG SOUNDS REMAINS COARSE. PT SOB WITH ACTIVITY. CBG 180-300 THIS SHIFT, COVERED PER EMAR. SBA TO AND FROM BATHROOM. PT WITH DIARRHEA, STATES CHRONIC. CURRENTLY SITTING ON EDGE OF BED, EATING DINNER. BED IN LOW, CALL LIGHT IN REACH, WILL REPORT TO ONCOMING RN.
[2023-06-13 21:00] VITALS: BP 127/82
[2023-06-13] MEDS ORDERED: Atorvastatin 40 MG Tab PO SCH (21:00)
[2023-06-13] MEDS ORDERED: Prazosin HCl 1 MG Cap PO SCH (21:00)
[2023-06-13] MEDS ORDERED: GuaiFENesin 600 MG TabCR PO SCH (21:00)
[2023-06-13] MEDS ORDERED: MethylPREDNISolone Sod Succ 125 MG Vial IV SCH (21:00)
[2023-06-13 23:04] VITALS: BP 127/77
[2023-06-14 03:15] VITALS: BP 115/69
--- NOTE | 2023-06-14 05:19 | NUR ---
SHIFT SUMMARY PT ALERT AND ORIENTED X 4, COOPERATIVE WITH CARE AND ABLE TO MAKE NEEDS KNOWN. DEEP. SHE IS ON RA AND MAINTAINING 02 SATURATION ABOVE 90%, PT HAS HX OF COPD, LUNG SOUNDS COARSE THROUGHOUT, SOB WITH EXERTION. HR SR 80'S-90'S, SHE HAS DENIED CHEST PAIN/PRESSURE ALL SHIFT. PT UP TO BATHROOM A COUPLE TIMES THIS SHIFT. PT SAID SHE GETS ANXIOUS WHEN SHE GETS SOB FROM ACTIVITY BUT SHE RECOVERS QUICKLY. PT'S IV TO L AC FLUSHED/PATENT/SALINE LOCKED. PT HAS BEEN SLEEPING THE MAJORITY OF THE SHIFT AND IS CURRENTLY SLEEPING, SYMMETRICAL RISE AND FALL OF CHEST, RR 16, O2 SATURATION ABOVE 90%. CALL LIGHT WITHIN REACH.
[2023-06-14 08:01] VITALS: BP 126/86
[2023-06-14 16:37] VITALS: BP 122/85
--- NOTE | 2023-06-14 18:07 | NUR ---
SHIFT SUMMARY; ASSUMED CARE AT 0700. A/A/OX4 DURING SHIFT. RA-1L DURING SHIFT VIA NC. BREATHING TREATMENTS PER EMAR. INDEPENDANT IN ROOM, REPOSITIONS SELF NEEDED. VSS, NO ACUTE MEDICAL CHANGES, MEDICAL STATUS, WILL CONTINUE TO MONITOR AND TREAT UNTIL CHANGE OF SHIFT.
[2023-06-14 19:43] VITALS: BP 119/78
[2023-06-14 23:53] VITALS: BP 119/71
[2023-06-15 03:57] VITALS: BP 106/66
--- NOTE | 2023-06-15 04:51 | NUR ---
SHIFT SUMMARY PT ALERT AND ORIENTED X 4, COOPERATIVE WITH CARE AND ABLE TO MAKE NEEDS KNOWN. DEEP. SHE WAS ON 1L NC AT BEGINNING OF SHIFT AND STILL IS AND MAINTAINING 02 SATURATION ABOVE 90%, SHE HAS HX OF COPD, SOB W/EXERTION. HR SR, BP STABLE, SHE HAS DENIED CHEST PAIN/PRESSURE ALL SHIFT. SHE IS CONTINENT OF BLADDER AND BOWELS, NO BOWEL MOVEMENT THIS SHIFT. IV TO L AC PATENT/FLUSHED/SALINE LOCKED. PT HAS SLEPT THE MAJORITY OF THE SHIFT. SHE IS CURRENTY SLEEPING IN BED, SYMMETRICAL RISE AND FALL OF CHEST, RR 16. CALL LIGHT WITHIN REACH.
[2023-06-15 08:27] VITALS: BP 106/85
[2023-06-15] MEDS ORDERED: Doxycycline Hyclate 100 MG TAB PO SCH (09:00)
[2023-06-15] MEDS ORDERED: MethylPREDNISolone Sod Succ 125 MG Vial IV SCH (09:00)
[2023-06-15] MEDS ORDERED: PRED20 PO ×2 (11:12)
[2023-06-15] MEDS ORDERED: DOXY100 PO (11:13)
[2023-06-15] MEDS ORDERED: GUAI600T33 PO ×2 (11:14)
== END 2023-06-15 12:15 | disposition home or self-care (01) | DRG 189 ==
LOC: ER 11:11 → PCU 14:51
PROVIDERS: Physician Assistant; Student in an Organized Health Care Education/Training Program; ADMIT Internal Medicine
DX: J96.01 Acute respiratory failure with hypoxia (principal); K86.1 Other chronic pancreatitis; J44.1 Chronic obstructive pulmonary disease with (acute) exacerbation; F31.9 Bipolar disorder, unspecified; E11.9 Type 2 diabetes mellitus without complications; J45.909 Unspecified asthma, uncomplicated; K21.9 Gastro-esophageal reflux disease without esophagitis; F17.210 Nicotine dependence, cigarettes, uncomplicated; F43.10 Post-traumatic stress disorder, unspecified; F12.90 Cannabis use, unspecified, uncomplicated; G43.909 Migraine, unspecified, not intractable, without status migrainosus; Z98.890 Other specified postprocedural states; Z90.49 Acquired absence of other specified parts of digestive tract; Z98.51 Tubal ligation status; Z88.1 Allergy status to other antibiotic agents; Z88.8 Allergy status to other drugs, medicaments and biological substances; Z88.0 Allergy status to penicillin; Z88.2 Allergy status to sulfonamides; Z91.040 Latex allergy status; Z91.030 Bee allergy status; Z79.51 Long term (current) use of inhaled steroids; Z79.2 Long term (current) use of antibiotics; Z79.4 Long term (current) use of insulin; Z91.048 Other nonmedicinal substance allergy status; Z79.899 Other long term (current) drug therapy; Z85.3 Personal history of malignant neoplasm of breast; Z90.13 Acquired absence of bilateral breasts and nipples; Z90.710 Acquired absence of both cervix and uterus; Z90.722 Acquired absence of ovaries, bilateral; Z11.52 Encounter for screening for COVID-19
CPT/HCPCS: 0202U; 0241U; 36415; 71046; 80053; 80069; 82803; 82947; 83735; 83880; 84145; 84484; 85025; 85027; 93005; 93010; 94640; 94644; 94645; 94664; 94760; 94762; 96365; 96367; 96374; 96375; 99285-25; A9270; J0456; J1650; J1815; J2930; J3475; J7050; J7120

== ENCOUNTER 2023-09-04 12:54 | Emergency (ER) | payer OTHER ==
[~2023-09-04] VITALS: Ht 162.6 cm; Wt 65.8 kg
[~2023-09-04 12:54] MED LIST changes: +GUAI600T33 PO; +MOBIC15 MG PO; +MORP30 PO; +OXYC10ER PO; +PRAZ2 PO; +THERA-D2000 UNIT PO
[2023-09-04 13:44] LABS: BASOPHILS ABSOLUTE AUTO 0.05 K/mm3 (0.00-0.23); BASOPHILS PERCENT AUTO 1 % (0-2); EOSINOPHILS ABSOLUTE AUTO 0.15 K/mm3 (0.00-0.68); EOSINOPHILS PERCENT AUTO 1 % (0-6); Hematocrit 33.4 % (33.0-51.0); Hemoglobin 10.1 g/dL (11.5-16.0); IMMATURE GRAN ABSOLUTE AUTO 0.04 K/mm3 (0.00-0.10); IMMATURE GRAN PERCENT AUTO 0 % (0-1); LYMPHOCYTES PERCENT AUTO 23 % (21-46); MONOCYTES PERCENT AUTO 8 % (4-13); Mean Corpuscular HGB 21.9 pg (26.0-34.0); Mean Corpuscular HGB Conc 30.2 g/dL (31.5-36.5); Mean Corpuscular Volume 73 fL (80-100); NEUTROPHILS ABSOLUTE AUTO 7.15 K/mm3 (1.96-9.15); NEUTROPHILS PERCENT AUTO 67 % (41-73); Platelet Count 433 K/mm3 (150-400); RDW Coefficient Variation 21.2 % (11.7-14.2); RDW Standard Deviation 54.4 fL (35.1-46.3); Red Blood Cell Count 4.61 M/mm3 (3.80-5.20); White Blood Cell Count 10.59 K/mm3 (4.00-11.30)
[2023-09-04 14:09] LABS: Albumin, Blood 2.8 g/dL (3.4-5.0); Albumin/Globulin Ratio 0.5 (0.8-1.8); Bilirubin, Total 0.3 mg/dL (0.1-1.0); Bun/Creatinine Ratio 13.4 (12.0-20.0); Calcium, Blood 9.6 mg/dL (8.5-10.1); Creatinine, Blood 0.67 mg/dL (0.40-1.00); Globulin, Blood 5.5 g/dL (2.2-4.0); Potassium, Blood 3.9 mmol/L (3.5-5.5); Total Protein, Blood 8.3 g/dL (6.4-8.2)
[2023-09-04] MEDS ORDERED: CATAPRES0.1 MG PO (15:34)
[2023-09-04] MEDS ORDERED: LANTUS SOL100 UNIT/1 SC (15:37)
[2023-09-04] MEDS ORDERED: INSULIN LI100 UNIT/6 SC (15:37)
[2023-09-04 16:27] LABS: Source, Urine Clean Catch
[2023-09-04 16:30] LABS: Appearance, Urine Clear (Clear); Bilirubin, Urine Neg (Neg); Blood, Urine Neg (Neg); Glucose Qualitative, Urine Neg (Neg); Ketones, Urine Neg (Neg); Leukocyte Esterase, Urine Neg (Neg); Nitrite, Urine Neg (Neg); Protein, Urine Neg (Neg); Specific Gravity, Urine 1.005 (1.003-1.022); Urobilinogen, Urine NORM (Normal)
[2023-09-04 16:31] LABS: Color, Urine Pale Yellow (P-Yellow)
[2023-09-04 16:45] VITALS: BP 109/60
== END 2023-09-04 17:00 | disposition home or self-care (01) ==
LOC: ER 12:54
PROVIDERS: Nurse Practitioner
DX: E11.42 Type 2 diabetes mellitus with diabetic polyneuropathy (principal); J44.89 Other specified chronic obstructive pulmonary disease; K21.9 Gastro-esophageal reflux disease without esophagitis; F43.10 Post-traumatic stress disorder, unspecified; F17.210 Nicotine dependence, cigarettes, uncomplicated; Z88.0 Allergy status to penicillin; Z88.2 Allergy status to sulfonamides; Z88.1 Allergy status to other antibiotic agents; Z91.030 Bee allergy status; Z91.040 Latex allergy status; Z88.8 Allergy status to other drugs, medicaments and biological substances; Z79.4 Long term (current) use of insulin; Z79.891 Long term (current) use of opiate analgesic; Z79.52 Long term (current) use of systemic steroids; Z79.899 Other long term (current) drug therapy
CPT/HCPCS: 70450; 80053; 81003; 85025; 93005; 93010; 99284-25

== ENCOUNTER → 2023-11-10 | Outpatient (CLI) | payer OTHER ==
[~2023-11-10] MED LIST changes: +ANORO ELLIPTA1 EACH INH; +BUDESONIDE-FO10.2 G2 INH; +CATAPRES0.1 MG PO; +FERSU300 PO; +INSULIN LI100 UNIT/6 SC; +LANTUS SOL100 UNIT/1 SC
[2023-11-10 11:49] LABS: BASOPHILS ABSOLUTE AUTO 0.06 K/mm3 (0.00-0.23); BASOPHILS PERCENT AUTO 1 % (0-2); EOSINOPHILS ABSOLUTE AUTO 0.14 K/mm3 (0.00-0.68); EOSINOPHILS PERCENT AUTO 2 % (0-6); Hematocrit 37.2 % (33.0-51.0); Hemoglobin 11.3 g/dL (11.5-16.0); IMMATURE GRAN ABSOLUTE AUTO 0.01 K/mm3 (0.00-0.10); IMMATURE GRAN PERCENT AUTO 0 % (0-1); LYMPHOCYTES ABSOLUTE AUTO 2.29 K/mm3 (0.84-5.20); LYMPHOCYTES PERCENT AUTO 32 % (21-46); MONOCYTES ABSOLUTE AUTO 0.89 K/mm3 (0.16-1.47); MONOCYTES PERCENT AUTO 13 % (4-13); Mean Corpuscular HGB 22.2 pg (26.0-34.0); Mean Corpuscular HGB Conc 30.4 g/dL (31.5-36.5); Mean Corpuscular Volume 73 fL (80-100); NEUTROPHILS ABSOLUTE AUTO 3.73 K/mm3 (1.96-9.15); NEUTROPHILS PERCENT AUTO 52 % (41-73); Platelet Count 442 K/mm3 (150-400); RDW Standard Deviation 63.7 fL (35.1-46.3); Red Blood Cell Count 5.09 M/mm3 (3.80-5.20); White Blood Cell Count 7.12 K/mm3 (4.00-11.30)
[2023-11-10 12:13] LABS: Anion Gap 7 mmol/L (3-11); Blood Urea Nitrogen 14 mg/dL (8-24); Bun/Creatinine Ratio 21.2 (12.0-20.0); CHOL/HDL RATIO 2.3; CO2, Blood 29 mmol/L (21-32); Calcium, Blood 9.4 mg/dL (8.5-10.1); Chloride, Blood 99 mmol/L (98-108); Cholesterol 154 mg/dL (50-200); Creatinine, Blood 0.66 mg/dL (0.40-1.00); Glomerular Filtration Rate 107 (60-); Glucose, Blood 147 mg/dL (70-99); HDL Cholesterol 68 mg/dL (>39); LDL/HDL RATIO 1.1; Low Density Lipoprotein Chol 73 mg/dL (0-110); Potassium, Blood 4.3 mmol/L (3.5-5.5); Sodium, Blood 131 mmol/L (136-145); Triglycerides 64 mg/dL (30-160); Very Low Density Lipoprot Chol 12 mg/dL (6-32)
== END | disposition home or self-care (01) ==
LOC: LAB SHORT 09:05 → LAB 09:05
PROVIDERS: Physician Assistant
DX: E87.1 Hypo-osmolality and hyponatremia (principal); D50.9 Iron deficiency anemia, unspecified; Z79.899 Other long term (current) drug therapy
CPT/HCPCS: 80048; 80061; 82306; 83036; 84443; 85025

== ENCOUNTER → 2023-12-15 | Outpatient (CLI) | payer OTHER ==
[2023-12-15 19:46] LABS: Bun/Creatinine Ratio 12.5 (12.0-20.0); Calcium, Blood 9.1 mg/dL (8.5-10.1); Creatinine, Blood 0.56 mg/dL (0.40-1.00)
== END ==
LOC: LAB SHORT 17:00 → LAB 17:00
PROVIDERS: Physician Assistant
DX: E87.1 Hypo-osmolality and hyponatremia (principal)
CPT/HCPCS: 80048; 83930; 84300

== ENCOUNTER 2024-02-27 02:20 | Inpatient (IN) | payer OTHER ==
[~2024-02-27] VITALS: Ht 167.6 cm; Wt 53.1 kg
[2024-02-27 02:29] LABS: Base Excess Venous 8.3 mmol/L; Bicarbonate Venous 28.3 mmol/L (24.0-30.0); pH Blood Venous 7.39 (7.34-7.37)
[2024-02-27] MEDS ORDERED: Ipratropium/Albuterol SulF 2.5-0.5MG/3 ML Amp INH ONE (02:30)
[2024-02-27] MEDS ORDERED: Morphine Sulfate 4 MG/1 ML Injection IV ONE (02:30)
[2024-02-27] MEDS ORDERED: MethylPREDNISolone Sod Succ 125 MG Vial IV ONE (02:30)
[2024-02-27] MEDS ORDERED: Ipratropium Bromide INH 0.02% 0.5 mg/2.5ML Vial INH SCH (02:30)
[2024-02-27] MEDS ORDERED: Albuterol 2.5 MG/3 ML VIAL INH SCH (02:30)
[2024-02-27 02:36] LABS: BASOPHILS ABSOLUTE AUTO 0.07 K/mm3 (0.00-0.23); BASOPHILS PERCENT AUTO 1 % (0-2); EOSINOPHILS ABSOLUTE AUTO 0.37 K/mm3 (0.00-0.68); EOSINOPHILS PERCENT AUTO 3 % (0-6); Hematocrit 45.9 % (33.0-51.0); Hemoglobin 14.9 g/dL (11.5-16.0); IMMATURE GRAN ABSOLUTE AUTO 0.03 K/mm3 (0.00-0.10); IMMATURE GRAN PERCENT AUTO 0 % (0-1); LYMPHOCYTES ABSOLUTE AUTO 4.41 K/mm3 (0.84-5.20); LYMPHOCYTES PERCENT AUTO 35 % (21-46); MONOCYTES ABSOLUTE AUTO 0.89 K/mm3 (0.16-1.47); MONOCYTES PERCENT AUTO 7 % (4-13); Mean Corpuscular HGB 26.4 pg (26.0-34.0); Mean Corpuscular HGB Conc 32.5 g/dL (31.5-36.5); Mean Corpuscular Volume 81 fL (80-100); Mean Platelet Volume 9.5 fL (9.1-12.4); NEUTROPHILS ABSOLUTE AUTO 6.71 K/mm3 (1.96-9.15); NEUTROPHILS PERCENT AUTO 54 % (41-73); Platelet Count 336 K/mm3 (150-400); RDW Coefficient Variation 18.7 % (11.7-14.2); RDW Standard Deviation 54.2 fL (35.1-46.3); Red Blood Cell Count 5.65 M/mm3 (3.80-5.20); White Blood Cell Count 12.48 K/mm3 (4.00-11.30)
[2024-02-27 02:51] LABS: Bun/Creatinine Ratio 14.7 (12.0-20.0); Calcium, Blood 9.7 mg/dL (8.5-10.1); Creatinine, Blood 0.68 mg/dL (0.40-1.00); Potassium, Blood 4.3 mmol/L (3.5-5.5)
[2024-02-27] MEDS ORDERED: Azithromycin 500 MG in NS 250 ML IV ONE (05:05)
[2024-02-27] MEDS ORDERED: FLU VACC TS2024-25(6MOS UP)/PF 45 MCG/0.5 ML SYRINGE IM ONE (05:25)
[2024-02-27] MEDS ORDERED: Omeprazole 20 MG CapCR PO SCH (06:00)
[2024-02-27] MEDS ORDERED: CefTRIAXone Sodium 1,000 MG in NS 100 ML IV SCH (06:28)
[2024-02-27] MEDS ORDERED: Insulin Human Lispro 100 Units/ML 3ML Syringe SC SCH (07:30)
[2024-02-27] MEDS ORDERED: Amylase/Lipase/Protease DR Cap 12,000 PO SCH (08:30)
[2024-02-27] MEDS ORDERED: Topiramate 25 MG Tab PO SCH (09:00)
[2024-02-27] MEDS ORDERED: Gabapentin 400 MG Cap PO SCH (09:00)
[2024-02-27] MEDS ORDERED: Baclofen 10 MG Tab PO SCH (09:00)
[2024-02-27] MEDS ORDERED: CloNIDine 0.1 MG Tab PO SCH (09:00)
[2024-02-27] MEDS ORDERED: Loratadine 10 MG Tab PO SCH (09:00)
[2024-02-27] MEDS ORDERED: DULoxetine HCL 60 MG Capsule DR PO SCH (09:00)
[2024-02-27] MEDS ORDERED: Lactobacil 2-S.Thermo-Bifido 1 1 Cap PO SCH (09:00)
[2024-02-27] MEDS ORDERED: Cholecalciferol 1000 Unit Tablet (=25MCG) PO SCH (09:00)
[2024-02-27] MEDS ORDERED: Atorvastatin 40 MG Tab PO SCH (09:00)
[2024-02-27] MEDS ORDERED: Morphine Sulfate IR 15 MG Tab PO PRN ×2 (09:45→11:10)
[2024-02-27] MEDS ORDERED: OxyCODONE HCL 5 MG TAB PO PRN (09:45)
[2024-02-27] MEDS ORDERED: CLON.5 PO (11:05)
[2024-02-27] MEDS ORDERED: KLOR-CON 1010 ME9 PO (11:07)
[2024-02-27] MEDS ORDERED: PREG300 PO (11:08)
[2024-02-27] MEDS ORDERED: MORP15ER PO (11:10)
[2024-02-27] MEDS ORDERED: Albuterol HFA200 ACT/6.7 GM INH INH PRN (11:10)
[2024-02-27] MEDS ORDERED: OXYC10TA19 PO (11:11)
[2024-02-27] MEDS ORDERED: Morphine Sulfate IR 15 MG Tab PO ONE (11:11)
[2024-02-27] MEDS ORDERED: MELO7.5 PO (11:12)
[2024-02-27] MEDS ORDERED: Ipratropium/Albuterol SulF 2.5-0.5MG/3 ML Amp INH SCH (12:20)
[2024-02-27 16:36] VITALS: BP 128/84
[2024-02-27] MEDS ORDERED: Ferrous Sulfate 325 MG Tab PO SCH (17:00)
--- NOTE | 2024-02-27 17:50 | NUR ---
SHIFT/ TRANSFER SUMMARY: PT AOX4 ORIENTED TO NEW ROOM, TRANSFERRED FROM ER. ADMISSION ASSESSMENT DONE, LUNGS W EXPIRATORY WHEEZE ON 4L OF OXYGEN. VITAL SIGNS STABLE AND COOPERATIVE. TIRED AND IN MILD PAIN BUT OTHERWISE IN GOOD AFFECT. BED IN LOWEST POSITION AND CALL LIGHT IN REACH. CONTINUING CARE.
--- NOTE | 2024-02-27 17:56 | NUR ---
THIS SUSTAINABLE SYSTEMS ANALYST HAS REVIEWED AND AGREES WITH ALL NOTES AND ASSESSMENTS BY ANGELINA CHRISTENSEN.
[2024-02-27 19:13] VITALS: BP 133/88
[2024-02-27] MEDS ORDERED: Prazosin HCl 1 MG Cap PO SCH (21:00)
[2024-02-27] MEDS ORDERED: Insulin Glargine-Yfgn 100 Unit/mL 3 ML SYR SC SCH (21:00)
[2024-02-27] MEDS ORDERED: RisperiDONE 0.25 MG Tab PO SCH (21:00)
[2024-02-28 04:02] VITALS: BP 119/107
[2024-02-28 05:02] VITALS: BP 105/72
[2024-02-28 05:48] LABS: BASOPHILS ABSOLUTE AUTO 0.05 K/mm3 (0.00-0.23); BASOPHILS PERCENT AUTO 1 % (0-2); EOSINOPHILS ABSOLUTE AUTO 0.21 K/mm3 (0.00-0.68); EOSINOPHILS PERCENT AUTO 3 % (0-6); Hematocrit 43.8 % (33.0-51.0); Hemoglobin 14.2 g/dL (11.5-16.0); IMMATURE GRAN ABSOLUTE AUTO 0.02 K/mm3 (0.00-0.10); IMMATURE GRAN PERCENT AUTO 0 % (0-1); LYMPHOCYTES PERCENT AUTO 42 % (21-46); MONOCYTES ABSOLUTE AUTO 0.65 K/mm3 (0.16-1.47); MONOCYTES PERCENT AUTO 8 % (4-13); Mean Corpuscular HGB 26.4 pg (26.0-34.0); Mean Corpuscular HGB Conc 32.4 g/dL (31.5-36.5); Mean Corpuscular Volume 81 fL (80-100); Mean Platelet Volume 9.7 fL (9.1-12.4); NEUTROPHILS ABSOLUTE AUTO 3.88 K/mm3 (1.96-9.15); NEUTROPHILS PERCENT AUTO 47 % (41-73); Platelet Count 311 K/mm3 (150-400); RDW Coefficient Variation 18.1 % (11.7-14.2); RDW Standard Deviation 52.4 fL (35.1-46.3); Red Blood Cell Count 5.38 M/mm3 (3.80-5.20); White Blood Cell Count 8.31 K/mm3 (4.00-11.30)
[2024-02-28 06:06] LABS: Albumin, Blood 2.6 g/dL (3.4-5.0); Albumin/Globulin Ratio 0.5 (0.8-1.8); Bilirubin, Total 0.2 mg/dL (0.1-1.0); Bun/Creatinine Ratio 25.3 (12.0-20.0); Calcium, Blood 9.4 mg/dL (8.5-10.1); Creatinine, Blood 0.55 mg/dL (0.40-1.00); Globulin, Blood 5.1 g/dL (2.2-4.0); Magnesium, Blood 1.8 mg/dL (1.6-2.4); Potassium, Blood 4.1 mmol/L (3.5-5.5); Total Protein, Blood 7.7 g/dL (6.4-8.2)
--- NOTE | 2024-02-28 06:19 | NUR ---
SHIFT SUMMARY PT PREFERS TO KEEP LIGHTS OFF IN ROOM. SHE RECEIVED A BREATHING TX APPROX 2200. PT IS PLEASANT AND COOPERATIVE WITH CARE RECEIVED. CALL LIGHT IN REACH. PT STATED HER INSULIN PUMP IS GOING OFF CONSTANTLY AND ANNOYING HER. SHE REMOVED HER PUMP AND ASKED IF STAFF COULD KEEP IT FOR HER. STAFF INFORMED PT THAT WE CANNOT BE RESPONSIBLE FOR HER INSULIN PUMP, THIS IS HER PERSONAL PROPERTY. PUMP PLACED IN DENTURE CUP WITH PT LABEL AND PLACED IN PT BATHROOM. PT AWARE OF LOCATION OF PUMP AND THAT IT IS HER RESPONSIBILITY. PT WOKE APPROX 0610 WITH 8/10 PAIN. PT STATED "MORNINGS ARE ALWAYS THE WORST." MEDICATED WITH OXY. WAITING FOR PHARMACY TO FILL MORPHINE DOSAGE. PT SITTING UP IN BED WAITING FOR MORNING MORPHINE DOSE.
[2024-02-28 07:17] VITALS: BP 117/80
[2024-02-28] MEDS ORDERED: Ipratropium/Albuterol SulF 2.5-0.5MG/3 ML Amp INH SCH (07:45)
[2024-02-28] MEDS ORDERED: NS 250 ML IV PRN (08:40)
[2024-02-28] MEDS ORDERED: Enoxaparin 40 MG/0.4 ML SYR SC SCH (09:00)
[2024-02-28] MEDS ORDERED: Azithromycin 500 MG in NS 250 ML IV SCH (09:00)
[2024-02-28] MEDS ORDERED: Morphine Sulfate IR 15 MG Tab PO PRN (09:00)
[2024-02-28] MEDS ORDERED: Mometasone/Formoterol MDI 200/5 mcg 13 GM INH SCH (11:10)
[2024-02-28] MEDS ORDERED: Furosemide 40 MG Tab PO ONE (13:15)
[2024-02-28 15:12] VITALS: BP 132/75
--- NOTE | 2024-02-28 16:20 | NUR ---
SHIFT SUMMARY: PT AOX4 AND INDEPENDENT IN THE ROOM. THIS MORNING, RESPIRATORY SUGGESTED [facility], NOTIFIED. RESPIRATORY FUNCTION SEEMS TO BE IMPROVING AND PT TOLERATING IV ANTIBIOTICS WELL. PT DISCONNECTED FROM INSULIN PUMP AND ALLOWING US TO TREAT WITH REGULAR CHECKS AND SCHEDULED INSULIN. BLOOD SUGARS HAVE BEEN STABLE. PAIN WAXING AND WANING, MEDICATED PER EMR. HAD TO START A NEW IV IN LEFT ARM DUE TO RIGHT ONE LEAKING. PT RESTING CURRENTLY, PREFERS HAVING LIGHTS OFF AND BLINDS CLOSED. BED IN LOWEST POSITION, AND CALL LIGHT IN REACH. CONTINUING CARE.
--- NOTE | 2024-02-28 18:19 | NUR ---
THIS AUDIO PRODUCTION ENGINEER HAS REVIEWED AND AGREES WITH ALL NOTES AND ASSESSMENTS BY ANGELINA CHRISTENSEN.
[2024-02-28 19:15] VITALS: BP 110/78
[2024-02-28] MEDS ORDERED: GuaiFENesin 600 MG TabCR PO SCH (21:00)
[2024-02-28 21:16] VITALS: BP 135/79
[2024-02-29 04:10] VITALS: BP 100/64
[2024-02-29 05:36] LABS: BASOPHILS ABSOLUTE AUTO 0.05 K/mm3 (0.00-0.23); BASOPHILS PERCENT AUTO 1 % (0-2); EOSINOPHILS ABSOLUTE AUTO 0.25 K/mm3 (0.00-0.68); EOSINOPHILS PERCENT AUTO 4 % (0-6); Hematocrit 50.2 % (33.0-51.0); Hemoglobin 15.9 g/dL (11.5-16.0); IMMATURE GRAN ABSOLUTE AUTO 0.01 K/mm3 (0.00-0.10); IMMATURE GRAN PERCENT AUTO 0 % (0-1); LYMPHOCYTES ABSOLUTE AUTO 2.86 K/mm3 (0.84-5.20); LYMPHOCYTES PERCENT AUTO 45 % (21-46); MONOCYTES ABSOLUTE AUTO 0.41 K/mm3 (0.16-1.47); MONOCYTES PERCENT AUTO 7 % (4-13); Mean Corpuscular HGB 26.2 pg (26.0-34.0); Mean Corpuscular HGB Conc 31.7 g/dL (31.5-36.5); Mean Corpuscular Volume 83 fL (80-100); NEUTROPHILS ABSOLUTE AUTO 2.76 K/mm3 (1.96-9.15); NEUTROPHILS PERCENT AUTO 44 % (41-73); Platelet Count 329 K/mm3 (150-400); RDW Coefficient Variation 18.6 % (11.7-14.2); RDW Standard Deviation 53.1 fL (35.1-46.3); Red Blood Cell Count 6.08 M/mm3 (3.80-5.20); White Blood Cell Count 6.34 K/mm3 (4.00-11.30)
[2024-02-29 06:05] LABS: Albumin, Blood 3.1 g/dL (3.4-5.0); Albumin/Globulin Ratio 0.5 (0.8-1.8); Bilirubin, Total 0.3 mg/dL (0.1-1.0); Bun/Creatinine Ratio 22.1 (12.0-20.0); Calcium, Blood 9.6 mg/dL (8.5-10.1); Creatinine, Blood 0.72 mg/dL (0.40-1.00); Globulin, Blood 5.7 g/dL (2.2-4.0); Potassium, Blood 4.6 mmol/L (3.5-5.5); Total Protein, Blood 8.8 g/dL (6.4-8.2)
--- NOTE | 2024-02-29 06:28 | NUR ---
SHIFT SUMMARY PT MEDICATED FOR PAIN, STATING "IT'S CREEPING BACK UP THERE. IT'S ABOUT A 7." AFTER RECEIVING PAIN MEDICATION, PT SLEEPING PEACEFULLY. CALL LIGHT WITHIN REACH. MORNING PAIN MEDS GIVEN AFTER PT WOKE STATING SHE WAS EXPERIENCING PANCREATIC PAIN. PT NOW SLEEPING COMFORTABLY AGAIN.
[2024-02-29] MEDS ORDERED: ATOR40TA PO (13:08)
[2024-02-29] MEDS ORDERED: GUAI600T33 PO (13:09)
[2024-02-29] MEDS ORDERED: IPRAT-ALBUT 0.5-3 ML INH (13:11)
[2024-02-29] MEDS ORDERED: DULERA 100 MCG/13 GM INH (13:12)
[2024-02-29] MEDS ORDERED: Prednisone10 MG PO (13:13)
[2024-02-29] MEDS ORDERED: VISBIOME 112.51 EACH PO (13:15)
[2024-02-29 16:15] VITALS: BP 120/85
--- NOTE | 2024-02-29 17:56 | NUR ---
PT DISCHARGED AT 1454 VIA WHEELCHAIR. ALL PAPERWORK WAS REVIEWED AND EDUCATIONAL MATERIAL SENT WITH PT. PT HAD HOME O2 EVAL DONE AND REQUIRED O2 TO GO HOME PER EVAL TODAY. PT INDEPENDENT AND ABLE TO MAKE NEEDS KNOWN AOX4 PLEASANT WITH CARE. PT COLLECTED PERSONAL BELONGINGS AND TOOK THOSE AND WAS ESCORTED OUT VIA WHEELCHAIR. NO DISTRESS NOTED.
--- NOTE | 2024-02-29 17:56 | NUR ---
THIS PYTHON JAVA DEVELOPER HAS REVIEWED ASSESSMENTS BY ANGELINA CHRISTENSEN AND AGREES WITH THEM.
[2024-03-01] MEDS ORDERED: PredniSONE 20 MG Tab PO SCH (09:00)
== END 2024-02-29 16:45 | disposition home or self-care (01) | DRG 193 ==
LOC: ER 02:20 → ERHOLD 05:23 → MEDS 16:25 → ENPENDDIS 02-29 11:10 → MEDS 02-29 16:45
PROVIDERS: Emergency Medicine; Student in an Organized Health Care Education/Training Program; ADMIT Student in an Organized Health Care Education/Training Program
DX: J18.9 Pneumonia, unspecified organism (principal); J96.01 Acute respiratory failure with hypoxia; J96.02 Acute respiratory failure with hypercapnia; J44.1 Chronic obstructive pulmonary disease with (acute) exacerbation; R65.10 Systemic inflammatory response syndrome (SIRS) of non-infectious origin without acute organ dysfunction; J44.0 Chronic obstructive pulmonary disease with (acute) lower respiratory infection; K86.1 Other chronic pancreatitis; Z28.21 Immunization not carried out because of patient refusal; K21.9 Gastro-esophageal reflux disease without esophagitis; F31.9 Bipolar disorder, unspecified; G43.909 Migraine, unspecified, not intractable, without status migrainosus; F43.10 Post-traumatic stress disorder, unspecified; E11.9 Type 2 diabetes mellitus without complications; J45.909 Unspecified asthma, uncomplicated; Z90.13 Acquired absence of bilateral breasts and nipples; Z98.51 Tubal ligation status; Z90.710 Acquired absence of both cervix and uterus; Z90.722 Acquired absence of ovaries, bilateral; Z90.49 Acquired absence of other specified parts of digestive tract; Z98.890 Other specified postprocedural states; Z87.891 Personal history of nicotine dependence; Z88.0 Allergy status to penicillin; Z88.1 Allergy status to other antibiotic agents; Z91.040 Latex allergy status; Z91.041 Radiographic dye allergy status; Z88.8 Allergy status to other drugs, medicaments and biological substances; Z79.4 Long term (current) use of insulin; Z79.899 Other long term (current) drug therapy
CPT/HCPCS: 36415; 71045; 71260; 80048; 80053; 82803; 82947; 83735; 83880; 84145; 84484; 85025; 85379; 87070; 87147; 87205; 93005; 93010; 94640; 94644; 94664; 94760; 94761; 94762; 96374-59; 96375-59; 99285-25; A9270; J0456; J0696; J1650; J1815; J2270; J2919; J7050; Q9967

== ENCOUNTER 2024-04-11 12:50 | Inpatient (IN) | payer OTHER ==
[~2024-04-11] VITALS: Ht 167.6 cm; Wt 49.2 kg
[~2024-04-11 12:50] MED LIST changes: +DULERA 100 MCG/13 GM INH; +IPRAT-ALBUT 0.5-3 ML INH; +KLOR-CON 1010 ME9 PO; +MELO7.5 PO; +MORP15ER PO; +OXYC10TA19 PO; +PREG300 PO; +VISBIOME 112.51 EACH PO
[2024-04-11] MEDS ORDERED: Magnesium Sulf 2 GM/Water 50ML 50 ML IV ONE (14:20)
[2024-04-11] MEDS ORDERED: MethylPREDNISolone Sod Succ 125 MG Vial IV ONE (14:20)
[2024-04-11] MEDS ORDERED: Albuterol 2.5 MG/3 ML VIAL INH SCH (14:20)
[2024-04-11] MEDS ORDERED: Ipratropium Bromide INH 0.02% 0.5 mg/2.5ML Vial INH SCH (14:20)
[2024-04-11 14:25] LABS: BASOPHILS ABSOLUTE AUTO 0.03 K/mm3 (0.00-0.23); BASOPHILS PERCENT AUTO 0 % (0-2); EOSINOPHILS ABSOLUTE AUTO 0.11 K/mm3 (0.00-0.68); EOSINOPHILS PERCENT AUTO 1 % (0-6); Hematocrit 39.7 % (33.0-51.0); Hemoglobin 13.1 g/dL (11.5-16.0); IMMATURE GRAN ABSOLUTE AUTO 0.03 K/mm3 (0.00-0.10); IMMATURE GRAN PERCENT AUTO 0 % (0-1); LYMPHOCYTES ABSOLUTE AUTO 1.83 K/mm3 (0.84-5.20); LYMPHOCYTES PERCENT AUTO 21 % (21-46); MONOCYTES ABSOLUTE AUTO 0.95 K/mm3 (0.16-1.47); MONOCYTES PERCENT AUTO 11 % (4-13); Mean Corpuscular HGB 27.6 pg (26.0-34.0); Mean Corpuscular Volume 84 fL (80-100); Mean Platelet Volume 9.9 fL (9.1-12.4); NEUTROPHILS ABSOLUTE AUTO 5.73 K/mm3 (1.96-9.15); NEUTROPHILS PERCENT AUTO 66 % (41-73); Platelet Count 247 K/mm3 (150-400); RDW Coefficient Variation 19.5 % (11.7-14.2); RDW Standard Deviation 60.1 fL (35.1-46.3); Red Blood Cell Count 4.75 M/mm3 (3.80-5.20); White Blood Cell Count 8.68 K/mm3 (4.00-11.30)
[2024-04-11] MEDS ORDERED: CefTRIAXone Sodium 1,000 MG in NS 100 ML IV ONE ×2 (14:30→16:50)
[2024-04-11] MEDS ORDERED: Azithromycin 500 MG in NS 250 ML IV ONE (14:30)
[2024-04-11 14:34] LABS: Albumin, Blood 2.9 g/dL (3.4-5.0); Albumin/Globulin Ratio 0.6 (0.8-1.8); Bilirubin, Total 0.3 mg/dL (0.1-1.0); Bun/Creatinine Ratio 17.6 (12.0-20.0); Calcium, Blood 9.1 mg/dL (8.5-10.1); Creatinine, Blood 0.63 mg/dL (0.40-1.00); Globulin, Blood 4.6 g/dL (2.2-4.0); Potassium, Blood 4.6 mmol/L (3.5-5.5); Total Protein, Blood 7.5 g/dL (6.4-8.2)
[2024-04-11 15:12] LABS: Base Excess Venous 7.1 mmol/L; Bicarbonate Venous 29.7 mmol/L (24.0-30.0); PCO2 Venous 48.9 mmHg (38-42); pH Blood Venous 7.42 (7.34-7.37)
[2024-04-11] MEDS ORDERED: Bisacodyl 10 MG Supp PR PRN (16:30)
[2024-04-11] MEDS ORDERED: FLU VACC TS2024-25(6MOS UP)/PF 45 MCG/0.5 ML SYRINGE IM SCH (16:30)
[2024-04-11] MEDS ORDERED: Ondansetron 4 MG TAB PO PRN (16:35)
[2024-04-11] MEDS ORDERED: TraZODone HCl 50 MG Tab PO PRN (16:35)
[2024-04-11] MEDS ORDERED: Ipratropium/Albuterol SulF 2.5-0.5MG/3 ML Amp INH SCH (16:35)
[2024-04-11] MEDS ORDERED: Magnesium Hydroxide Conc 10 ML UDC PO PRN (16:35)
[2024-04-11] MEDS ORDERED: Mometasone/Formoterol MDI 200/5 mcg 13 GM INH SCH (16:40)
[2024-04-11] MEDS ORDERED: CloNIDine 0.1 MG Tab PO PRN (16:50)
[2024-04-11] MEDS ORDERED: OxyCODONE 5 mg/Acetamin 325 mg TABLET PO PRN (17:10)
[2024-04-11] MEDS ORDERED: Furosemide 10 MG/ML 4ML Vial IV ONE (17:15)
[2024-04-11] MEDS ORDERED: Amylase/Lipase/Protease DR Cap 12,000 PO SCH (17:30)
[2024-04-11] MEDS ORDERED: Morphine Sulfate 15 MG TABCR PO SCH (18:00)
[2024-04-11 18:38] VITALS: BP 114/76
[2024-04-11 20:04] VITALS: BP 125/68
[2024-04-11] MEDS ORDERED: Lactobacil 2-S.Thermo-Bifido 1 1 Cap PO SCH (21:00)
[2024-04-11] MEDS ORDERED: Insulin Human Lispro 100 Units/ML 3ML Syringe SC SCH (21:00)
[2024-04-11] MEDS ORDERED: Methocarbamol 500 MG Tab PO SCH (21:00)
[2024-04-11] MEDS ORDERED: Gabapentin 400 MG Cap PO SCH (21:00)
[2024-04-11] MEDS ORDERED: Famotidine 20 MG Tab PO SCH (21:00)
[2024-04-11] MEDS ORDERED: DULoxetine HCL 60 MG Capsule DR PO SCH (21:00)
[2024-04-11] MEDS ORDERED: GuaiFENesin 600 MG TabCR PO SCH (21:00)
[2024-04-11 23:56] VITALS: BP 102/76
[2024-04-12] MEDS ORDERED: MethylPREDNISolone Sod Succ 125 MG Vial IV SCH
--- NOTE | 2024-04-12 01:55 | NUR ---
UPDATE PT EMOTIONAL, YELLING ON PHONE, HR 90S, RESP 24-28 RPM, PT CRYING, AND GRANDSON THAT THEY HAVE CUSTODY OF ARE ARGUEING AT HOME AND ON PHONE WITH PT. PT IS STATING SHE NEEDS TO LEAVE TO GO HOME AND STOP THE ARGUEING AND FIGHTING, DISCUSSED WITH PT THE DETRIMENT TO HER HEALTH THAT LEAVING WILL CAUSE AND THE NEED FOR HFNC SHE WONT BE ABLE TO BREATHE , EXPLAINED TO PT SPOUSE ON THE PHONE, PT HEALTH NEEDS AND NEED TO STAY AT THE HOSPITAL ON HFNC AT 10 LPM AND PT SPOUSE ANGRY AND STATES " YOURE NOT GOING TO TELL ME WHAT TO DO NOW TOO." EXPLAINED TO I AM NOT TELLING HIM WHAT TO DO, ONLY EXPLAINING THE NEED FOR THE PT TO REMAIN IN THE HOSPITAL AND TO FIND AN AGREEABLE SOLUTION TO THIS FAMILY ISSUE. PT TOOK THE PHONE BACK AND SPOUSE CAN BE HEARD YELLING AT PT THROUGH THE PHONE. NOTIFIED CHARGE NURSE AND HOUSES SUP OF ABOVE SITUATION AND PT WANTING TO LEAVE, HOUSE SUP. AND CHARGE IN ROOM WITH PT, PT DOES NOT WANT A WELLNESS CHECK CALLED FOR GRANDSON, STATES THAT THERE IS NO CHANCE OF PHYSICAL VIOLENCE, ONLY ARGUEMENTS AND THAT SHE JUST WANTS TO BE THERE TO STOP IT. PT AGREES TO STAY AT HOSPITAL, REQUESTING ANXIETY MEDICATION AND CALLED GRANDSON TO CHECK ON HIM. GRANDSON AND AGREED TO GO TO SEPARATE ROOMS FOR THE REST OF THE NIGHT AND STOP ARGUEING. CALL PLACED TO MD FOR ANXIETY MEDICATION REQUEST, WAITING FOR RETURN CALL
[2024-04-12] MEDS ORDERED: LORazepam 2 MG/ML 1ML Injection IV ONE (03:05)
[2024-04-12 03:39] VITALS: BP 99/62
[2024-04-12 04:16] LABS: BASOPHILS PERCENT AUTO 0 % (0-2); EOSINOPHILS PERCENT AUTO 0 % (0-6); Hematocrit 42.4 % (33.0-51.0); IMMATURE GRAN ABSOLUTE AUTO 0.01 K/mm3 (0.00-0.10); IMMATURE GRAN PERCENT AUTO 0 % (0-1); LYMPHOCYTES ABSOLUTE AUTO 1.04 K/mm3 (0.84-5.20); LYMPHOCYTES PERCENT AUTO 23 % (21-46); MONOCYTES ABSOLUTE AUTO 0.11 K/mm3 (0.16-1.47); MONOCYTES PERCENT AUTO 2 % (4-13); Mean Corpuscular HGB 27.2 pg (26.0-34.0); Mean Corpuscular Volume 83 fL (80-100); Mean Platelet Volume 10.2 fL (9.1-12.4); NEUTROPHILS ABSOLUTE AUTO 3.47 K/mm3 (1.96-9.15); NEUTROPHILS PERCENT AUTO 75 % (41-73); Platelet Count 260 K/mm3 (150-400); RDW Coefficient Variation 19.7 % (11.7-14.2); RDW Standard Deviation 57.2 fL (35.1-46.3); Red Blood Cell Count 5.14 M/mm3 (3.80-5.20); White Blood Cell Count 4.63 K/mm3 (4.00-11.30)
[2024-04-12 04:49] LABS: Albumin, Blood 2.8 g/dL (3.4-5.0); Albumin/Globulin Ratio 0.5 (0.8-1.8); Bilirubin, Total 0.3 mg/dL (0.1-1.0); Bun/Creatinine Ratio 24.2 (12.0-20.0); Calcium, Blood 9.1 mg/dL (8.5-10.1); Creatinine, Blood 0.58 mg/dL (0.40-1.00); Globulin, Blood 5.2 g/dL (2.2-4.0); Potassium, Blood 4.2 mmol/L (3.5-5.5)
[2024-04-12] MEDS ORDERED: Omeprazole 20 MG CapCR PO SCH (06:00)
--- NOTE | 2024-04-12 06:21 | NUR ---
SHIFT SUMMARY PT ALERT AND ORIENTED X4, FOLLOWS COMMANDS, ABLE TO MAKE NEEDS KNOWN, SR 70-90S, SBP 90-120S, MAP >65. O2 AT 10 LPM HFNC WITH NOTED SOB WITH EXERTION, VOIDS WITHOUT DIFFICULTY, AMBULATES WITHOUT ASSIST, MEDICATED WITH OXYCODONE 5MG PO X1 AND ONE TIME DOSE OF ATIVAN 0.25MG IVP FOR ANXIETY AFTER FAMILY ISSUES THIS SHIFT, ATIVAN EFFECTIVE, PT CALM AND RESTING WITH EYES CLOSED, STATES SHE DOES FEEL MORE RELAXED NOW, DENIES C/O PAIN OR ANXIETY, SIDE RAILS UP X2 CALL LIGHT IN REACH
[2024-04-12] MEDS ORDERED: Insulin Pump Cartridge MISC SC SCH (07:30)
[2024-04-12 07:54] VITALS: BP 103/69
[2024-04-12] MEDS ORDERED: Guaifenesin/Dextromethorphan Syrup 5 ML UDC PO PRN (08:10)
[2024-04-12] MEDS ORDERED: Enoxaparin 40 MG/0.4 ML SYR SC SCH (09:00)
[2024-04-12] MEDS ORDERED: LORazepam 1 MG Tab PO PRN (09:00)
[2024-04-12] MEDS ORDERED: Morphine Sulfate 30 MG TabCR PO SCH (09:00)
[2024-04-12] MEDS ORDERED: Loratadine 10 MG Tab PO SCH (09:00)
[2024-04-12] MEDS ORDERED: Furosemide 10 MG/ML 4ML Vial IV SCH (09:00)
[2024-04-12] MEDS ORDERED: Heparin Sodium 5000 Units/ML 1ML MDV SC SCH (09:00)
--- NOTE | 2024-04-12 11:08 | NUR ---
ASSUMING CARE ASSUMED CARE OF THIS PATIENT AT 0730. PATIENT IS A+O X4, ABLE TO MAKE NEEDS KNOW. REPOSTIONS SELF IN BED, SBA TO THE BATHROOM TO ASSIT WITH LINES. ON CONTINOUS PULSE OX, AND CARDIAC MONITORING. IV LASIX THIS AM. CALL LIGHT IN REACH, WILL CONTINUE TO TREAT.
[2024-04-12 11:43] VITALS: BP 103/66
[2024-04-12] MEDS ORDERED: CefTRIAXone Sodium 2,000 MG in NS 100 ML IV SCH (12:00)
[2024-04-12] MEDS ORDERED: Guaifenesin/Dextromethorphan Syrup 5 ML UDC PO SCH (12:00)
[2024-04-12 15:55] VITALS: BP 112/69
[2024-04-12] MEDS ORDERED: Azithromycin 500 MG in NS 250 ML IV SCH (16:00)
[2024-04-12] MEDS ORDERED: Amylase/Lipase/Protease DR Cap 12,000 PO SCH (17:55)
--- NOTE | 2024-04-12 18:07 | NUR ---
SHIFT SUMMARY PATIENT IS A+O X4, ABLE TO MAKE NEEDS KNOWN. MOVES SELF IN BED, SBA TO BR FOR VOIDING, MEASURING OUTPUT. RECIEVED 40 MG OF LASIX THIS AM. VSS. OXYGEN SATURATION REMAINED FOR 93% ON 6-8 LITERS NC THIS SHIFT. PATIENT IS ON 2 LITERS NC AT HOME. PATIENT DID ENDORSE ABDOMEN/RIB PAIN THROUGHTOUT SHIFT WHICH SHE WAS MEDICATED FOR PER EMAR. PATIENT HAS OWN INSULIN PUMP AND DEXCON. MEDICATED PER EMAR X1 WITH PO ATIVAN FOR ANXIETY, WHICH WAS EFFECTIVE. SIDE RAILS UP X2, BED IN LOWEST POSTION, CALL LIGHT IN REACH. WILL CONTINUE TO TREAT UNTIL END OF SHIFT.
[2024-04-12 19:43] VITALS: BP 109/76
[2024-04-12] MEDS ORDERED: Albuterol 2.5 MG/3 ML VIAL INH PRN (22:10)
[2024-04-12 23:55] VITALS: BP 123/80
[2024-04-13 03:28] VITALS: BP 124/80
[2024-04-13 03:39] LABS: BASOPHILS ABSOLUTE AUTO 0.01 K/mm3 (0.00-0.23); BASOPHILS PERCENT AUTO 0 % (0-2); EOSINOPHILS PERCENT AUTO 0 % (0-6); Hematocrit 44.3 % (33.0-51.0); Hemoglobin 14.7 g/dL (11.5-16.0); IMMATURE GRAN ABSOLUTE AUTO 0.01 K/mm3 (0.00-0.10); IMMATURE GRAN PERCENT AUTO 0 % (0-1); LYMPHOCYTES ABSOLUTE AUTO 0.97 K/mm3 (0.84-5.20); LYMPHOCYTES PERCENT AUTO 13 % (21-46); MONOCYTES ABSOLUTE AUTO 0.17 K/mm3 (0.16-1.47); MONOCYTES PERCENT AUTO 2 % (4-13); Mean Corpuscular HGB 27.4 pg (26.0-34.0); Mean Corpuscular HGB Conc 33.2 g/dL (31.5-36.5); Mean Corpuscular Volume 83 fL (80-100); Mean Platelet Volume 9.7 fL (9.1-12.4); NEUTROPHILS ABSOLUTE AUTO 6.19 K/mm3 (1.96-9.15); NEUTROPHILS PERCENT AUTO 84 % (41-73); Platelet Count 264 K/mm3 (150-400); RDW Coefficient Variation 19.5 % (11.7-14.2); Red Blood Cell Count 5.37 M/mm3 (3.80-5.20); White Blood Cell Count 7.35 K/mm3 (4.00-11.30)
[2024-04-13 04:02] LABS: Bun/Creatinine Ratio 31.1 (12.0-20.0); Calcium, Blood 9.8 mg/dL (8.5-10.1); Creatinine, Blood 0.52 mg/dL (0.40-1.00); Magnesium, Blood 2.1 mg/dL (1.6-2.4); Potassium, Blood 4.3 mmol/L (3.5-5.5)
--- NOTE | 2024-04-13 05:24 | NUR ---
SHIFT SUMMARY A/Ox4 AND COOPERATIVE WITH CARE. ANSWERS QUESTIONS APPROPRIATELY AND ABLE TO MAKE HER NEEDS KNOWN. NO ACUTE EVENTS OVERNIGHT. CARDIAC, REMAINS IN SR 60-80'S WITH NO REPORTS OF CP, PRESSURE OR DIZZINESS. SBP STABLE RANGING 100-120'S. RESPIRATORY, ABLE TO BE TIRATED DOWN TO 1-2L NC MAINTAINING SPO2 >93%. ENDORSES IMPROVEMENT IN WORK OF BREATHING. GI/, ABLE TO AMBULATE TO BATHROOM INDPENDENTLY. DENIES N/V/D AT THIS TIME. CONTINUES TO ENDORSE INTERMITTENT LUQ PAIN, MANAGED WELL WITH PRN PAIN MEDICATIONS. NO NEW ORDERS AT THIS TIME, WILL REPORT TO ONCOMING RN. MARVEL NUNN OF THIS NOTE.
[2024-04-13 07:48] VITALS: BP 125/77
[2024-04-13] MEDS ORDERED: Amylase/Lipase/Protease DR Cap 12,000 PO SCH ×2 (08:30)
--- NOTE | 2024-04-13 09:47 | NUR ---
pt c/o pain "the same pain that I have been having, but it's getting worse", 12/11, on her left side, states from coughing. She is anxious. Given ativan per prn orders. States she already took pain med this morning.
--- NOTE | 2024-04-13 10:12 | NUR ---
ASSUMING CARE ASSUMED CARE OF THIS PATIENT AT 0715. PATIENT RESTIN IN BED, PT REQUESTED WE DO REPORT OUTSIDE OF THE ROOM BECAUSE SHE WAS TIRED. PATIENT DID HOWEVER AWAKEN EASILY FOR MORNING MEDICATION PASS AND ASSESMENT. PATIENT ENDORSED HAVING PAIN IN HER ABDOMEN AND RIB AREA, REQUESTED PRN PAIN MEDICATION, MEDICATED PER EMAR. PATIENT IS A SBA ASSIT TO THE BATHRROM, VOIDING WITHOUT DIFF. WILL CONTINUE TO TREAT, CALL LIGHT IN REACH.
--- NOTE | 2024-04-13 11:26 | NUR ---
NURSE NOTE DR. PERKINS ROUNDED ON PATIENT THIS AM, PLAN FOR DISCHARGE TODAY AROUND 1300. PATIENT AWARE AND ACCEPTING OF PLAN. PATIENT REMAINS ON 1 LITER NC AT THIS TIME. CALL LIGHT IN REACH.
[2024-04-13] MEDS ORDERED: CODEINE-GUAIFE120 M1 PO (12:50)
[2024-04-13] MEDS ORDERED: ZITHROMAX500 MG PO (12:52)
[2024-04-14] MEDS ORDERED: MethylPREDNISolone Sod Succ 125 MG Vial IV SCH (09:00)
== END 2024-04-13 13:06 | disposition home or self-care (01) | DRG 177 ==
LOC: ER 12:50 → PCU 16:07
PROVIDERS: Student in an Organized Health Care Education/Training Program; ADMIT Hospitalist
DX: J15.69 Pneumonia due to other Gram-negative bacteria (principal); J96.21 Acute and chronic respiratory failure with hypoxia; J96.22 Acute and chronic respiratory failure with hypercapnia; J44.0 Chronic obstructive pulmonary disease with (acute) lower respiratory infection; J44.1 Chronic obstructive pulmonary disease with (acute) exacerbation; R65.10 Systemic inflammatory response syndrome (SIRS) of non-infectious origin without acute organ dysfunction; K86.1 Other chronic pancreatitis; J43.9 Emphysema, unspecified; E11.9 Type 2 diabetes mellitus without complications; F31.9 Bipolar disorder, unspecified; I10 Essential (primary) hypertension; Z85.3 Personal history of malignant neoplasm of breast; K21.9 Gastro-esophageal reflux disease without esophagitis; G43.909 Migraine, unspecified, not intractable, without status migrainosus; F43.10 Post-traumatic stress disorder, unspecified; G89.29 Other chronic pain; Z88.1 Allergy status to other antibiotic agents; Z91.030 Bee allergy status; Z91.040 Latex allergy status; Z88.0 Allergy status to penicillin; Z88.2 Allergy status to sulfonamides; Z88.8 Allergy status to other drugs, medicaments and biological substances; Z91.048 Other nonmedicinal substance allergy status; Z98.51 Tubal ligation status; Z98.890 Other specified postprocedural states; Z90.13 Acquired absence of bilateral breasts and nipples; Z90.710 Acquired absence of both cervix and uterus; Z90.722 Acquired absence of ovaries, bilateral; Z90.79 Acquired absence of other genital organ(s); Z90.49 Acquired absence of other specified parts of digestive tract; Z87.891 Personal history of nicotine dependence
CPT/HCPCS: 36415; 71046; 80048; 80053; 82803; 83036; 83735; 84484; 85025; 93005; 93010; 94640; 94644; 94664; 94762; 96365; 96368; 96375; 99285-25; A9270; J0456; J0696; J1650; J1940; J2060; J2919; J3475; J7050

== ENCOUNTER → 2024-04-21 | Outpatient (CLI) | payer OTHER ==
[~2024-04-21] MED LIST changes: +CODEINE-GUAIFE120 M1 PO; +ZITHROMAX500 MG PO
[2024-04-21 16:21] LABS: BASOPHILS ABSOLUTE AUTO 0.06 K/mm3 (0.00-0.23); BASOPHILS PERCENT AUTO 0 % (0-2); EOSINOPHILS ABSOLUTE AUTO 0.11 K/mm3 (0.00-0.68); EOSINOPHILS PERCENT AUTO 1 % (0-6); Hematocrit 42.3 % (33.0-51.0); Hemoglobin 13.9 g/dL (11.5-16.0); IMMATURE GRAN ABSOLUTE AUTO 0.13 K/mm3 (0.00-0.10); IMMATURE GRAN PERCENT AUTO 1 % (0-1); LYMPHOCYTES ABSOLUTE AUTO 1.96 K/mm3 (0.84-5.20); LYMPHOCYTES PERCENT AUTO 9 % (21-46); MONOCYTES ABSOLUTE AUTO 0.86 K/mm3 (0.16-1.47); MONOCYTES PERCENT AUTO 4 % (4-13); Mean Corpuscular HGB 27.4 pg (26.0-34.0); Mean Corpuscular HGB Conc 32.9 g/dL (31.5-36.5); Mean Corpuscular Volume 83 fL (80-100); Mean Platelet Volume 10.9 fL (9.1-12.4); NEUTROPHILS ABSOLUTE AUTO 18.64 K/mm3 (1.96-9.15); NEUTROPHILS PERCENT AUTO 86 % (41-73); Platelet Count 400 K/mm3 (150-400); RDW Coefficient Variation 19.9 % (11.7-14.2); RDW Standard Deviation 58.7 fL (35.1-46.3); Red Blood Cell Count 5.07 M/mm3 (3.80-5.20); White Blood Cell Count 21.76 K/mm3 (4.00-11.30)
[2024-04-21 16:52] LABS: Magnesium, Blood 1.9 mg/dL (1.6-2.4); Percent Saturation 10.3 % (15.0-50.0)
[2024-04-21 16:55] LABS: Albumin, Blood 3.1 g/dL (3.4-5.0); Albumin/Globulin Ratio 0.7 (0.8-1.8); Bilirubin, Total 0.4 mg/dL (0.1-1.0); Calcium, Blood 9.4 mg/dL (8.5-10.1); Creatinine, Blood 0.65 mg/dL (0.40-1.00); Globulin, Blood 4.5 g/dL (2.2-4.0); Potassium, Blood 4.6 mmol/L (3.5-5.5); Total Protein, Blood 7.6 g/dL (6.4-8.2)
== END | disposition home or self-care (01) ==
LOC: LAB SHORT 13:09 → LAB 13:09
PROVIDERS: Family Medicine
DX: J81.0 Acute pulmonary edema (principal)
CPT/HCPCS: 80053; 82728; 83540; 83550; 83735; 85025

== ENCOUNTER 2024-04-22 12:22 | Emergency (ER) | payer OTHER ==
[~2024-04-22] VITALS: Ht 167.6 cm; Wt 52.6 kg
[2024-04-22 12:54] VITALS: BP 107/83
[2024-04-22 12:57] LABS: BASOPHILS ABSOLUTE AUTO 0.04 K/mm3 (0.00-0.23); BASOPHILS PERCENT AUTO 0 % (0-2); EOSINOPHILS ABSOLUTE AUTO 0.02 K/mm3 (0.00-0.68); EOSINOPHILS PERCENT AUTO 0 % (0-6); Hemoglobin 14.3 g/dL (11.5-16.0); IMMATURE GRAN ABSOLUTE AUTO 0.09 K/mm3 (0.00-0.10); IMMATURE GRAN PERCENT AUTO 1 % (0-1); LYMPHOCYTES ABSOLUTE AUTO 1.67 K/mm3 (0.84-5.20); LYMPHOCYTES PERCENT AUTO 11 % (21-46); MONOCYTES PERCENT AUTO 2 % (4-13); Mean Corpuscular HGB Conc 32.5 g/dL (31.5-36.5); Mean Corpuscular Volume 83 fL (80-100); Mean Platelet Volume 9.3 fL (9.1-12.4); NEUTROPHILS ABSOLUTE AUTO 13.55 K/mm3 (1.96-9.15); NEUTROPHILS PERCENT AUTO 86 % (41-73); Platelet Count 377 K/mm3 (150-400); RDW Coefficient Variation 19.9 % (11.7-14.2); RDW Standard Deviation 59.2 fL (35.1-46.3); Red Blood Cell Count 5.29 M/mm3 (3.80-5.20); White Blood Cell Count 15.67 K/mm3 (4.00-11.30)
[2024-04-22 13:20] LABS: Albumin, Blood 2.8 g/dL (3.4-5.0); Albumin/Globulin Ratio 0.6 (0.8-1.8); Bilirubin, Total 0.4 mg/dL (0.1-1.0); Bun/Creatinine Ratio 23.9 (12.0-20.0); Calcium, Blood 9.2 mg/dL (8.5-10.1); Creatinine, Blood 0.71 mg/dL (0.40-1.00); Globulin, Blood 4.8 g/dL (2.2-4.0); Potassium, Blood 4.9 mmol/L (3.5-5.5); Total Protein, Blood 7.6 g/dL (6.4-8.2)
== END 2024-04-22 16:04 | disposition left against medical advice (07) ==
LOC: ER 12:22
PROVIDERS: Student in an Organized Health Care Education/Training Program
DX: Z53.21 Procedure and treatment not carried out due to patient leaving prior to being seen by health care provider (principal)
CPT/HCPCS: 71046; 80053; 83690; 84484; 85025; 93005; 93010

== ENCOUNTER → 2024-05-03 | Outpatient (CLI) | payer OTHER ==
[2024-05-03 16:41] LABS: BASOPHILS ABSOLUTE AUTO 0.03 K/mm3 (0.00-0.23); BASOPHILS PERCENT AUTO 0 % (0-2); EOSINOPHILS ABSOLUTE AUTO 0.15 K/mm3 (0.00-0.68); EOSINOPHILS PERCENT AUTO 2 % (0-6); Hematocrit 39.9 % (33.0-51.0); Hemoglobin 13.3 g/dL (11.5-16.0); IMMATURE GRAN ABSOLUTE AUTO 0.02 K/mm3 (0.00-0.10); IMMATURE GRAN PERCENT AUTO 0 % (0-1); LYMPHOCYTES ABSOLUTE AUTO 2.51 K/mm3 (0.84-5.20); LYMPHOCYTES PERCENT AUTO 35 % (21-46); MONOCYTES ABSOLUTE AUTO 0.57 K/mm3 (0.16-1.47); MONOCYTES PERCENT AUTO 8 % (4-13); Mean Corpuscular HGB 27.9 pg (26.0-34.0); Mean Corpuscular HGB Conc 33.3 g/dL (31.5-36.5); Mean Corpuscular Volume 84 fL (80-100); Mean Platelet Volume 11.4 fL (9.1-12.4); NEUTROPHILS ABSOLUTE AUTO 3.82 K/mm3 (1.96-9.15); NEUTROPHILS PERCENT AUTO 54 % (41-73); Platelet Count 282 K/mm3 (150-400); RDW Coefficient Variation 19.9 % (11.7-14.2); RDW Standard Deviation 59.7 fL (35.1-46.3); Red Blood Cell Count 4.77 M/mm3 (3.80-5.20)
[2024-05-03 18:06] LABS: Albumin, Blood 2.8 g/dL (3.4-5.0); Albumin/Globulin Ratio 0.6 (0.8-1.8); Bilirubin, Total 0.4 mg/dL (0.1-1.0); Bun/Creatinine Ratio 18.9 (12.0-20.0); Calcium, Blood 9.4 mg/dL (8.5-10.1); Creatinine, Blood 0.53 mg/dL (0.40-1.00); Globulin, Blood 4.9 g/dL (2.2-4.0); Potassium, Blood 4.7 mmol/L (3.5-5.5); Total Protein, Blood 7.7 g/dL (6.4-8.2)
== END ==
LOC: LAB 14:54 → LAB SHORT 14:54
PROVIDERS: Physician Assistant
DX: J81.0 Acute pulmonary edema (principal)
CPT/HCPCS: 80053; 85025

== ENCOUNTER 2024-05-13 09:01 | Emergency (ER) | payer OTHER ==
[~2024-05-13] VITALS: Ht 162.6 cm; Wt 52.2 kg
[2024-05-13] MEDS ORDERED: HYDROmorphone HCl/Pf 1MG SYR IV ONE ×2 (09:20→12:15)
[2024-05-13] MEDS ORDERED: Lactated Ringer's 1,000 ML IV ONE (09:20)
[2024-05-13 09:38] LABS: BASOPHILS ABSOLUTE AUTO 0.06 K/mm3 (0.00-0.23); BASOPHILS PERCENT AUTO 1 % (0-2); EOSINOPHILS ABSOLUTE AUTO 0.17 K/mm3 (0.00-0.68); EOSINOPHILS PERCENT AUTO 2 % (0-6); Hematocrit 41.2 % (33.0-51.0); Hemoglobin 13.6 g/dL (11.5-16.0); IMMATURE GRAN ABSOLUTE AUTO 0.02 K/mm3 (0.00-0.10); IMMATURE GRAN PERCENT AUTO 0 % (0-1); LYMPHOCYTES ABSOLUTE AUTO 3.37 K/mm3 (0.84-5.20); LYMPHOCYTES PERCENT AUTO 38 % (21-46); MONOCYTES PERCENT AUTO 6 % (4-13); Mean Corpuscular HGB 27.8 pg (26.0-34.0); Mean Corpuscular Volume 84 fL (80-100); Mean Platelet Volume 10.6 fL (9.1-12.4); NEUTROPHILS ABSOLUTE AUTO 4.75 K/mm3 (1.96-9.15); NEUTROPHILS PERCENT AUTO 54 % (41-73); Platelet Count 337 K/mm3 (150-400); RDW Coefficient Variation 19.7 % (11.7-14.2); Red Blood Cell Count 4.89 M/mm3 (3.80-5.20); White Blood Cell Count 8.87 K/mm3 (4.00-11.30)
[2024-05-13 11:00] VITALS: BP 131/75
[2024-05-13 11:16] LABS: Albumin, Blood 2.8 g/dL (3.4-5.0); Albumin/Globulin Ratio 0.6 (0.8-1.8); Bilirubin, Total 0.4 mg/dL (0.1-1.0); Bun/Creatinine Ratio 24.5 (12.0-20.0); Calcium, Blood 9.1 mg/dL (8.5-10.1); Creatinine, Blood 0.49 mg/dL (0.40-1.00); Globulin, Blood 4.7 g/dL (2.2-4.0); Potassium, Blood 5.1 mmol/L (3.5-5.5); Total Protein, Blood 7.5 g/dL (6.4-8.2)
[2024-05-13] MEDS ORDERED: Ondansetron HCl 2 MG / ML 2ML Vial IV ONE (12:15)
[2024-05-13 13:24] LABS: Influenza A, PCR NEGATIVE (NEGATIVE); Influenza B, PCR NEGATIVE (NEGATIVE); Resp Syncytial Virus, PCR NEGATIVE (NEGATIVE); SARS-Cov-2 (COVID-19) PCR, MMC NEGATIVE (NEGATIVE)
[2024-05-13] MEDS ORDERED: OXYC10TA19 PO (22:09)
[2024-05-13] MEDS ORDERED: MAGNESIUM GLU27.5 MG PO (22:10)
== END 2024-05-13 14:05 | disposition home or self-care (01) ==
LOC: ER 09:01
PROVIDERS: Student in an Organized Health Care Education/Training Program
DX: K85.90 Acute pancreatitis without necrosis or infection, unspecified (principal); K86.1 Other chronic pancreatitis; Z88.8 Allergy status to other drugs, medicaments and biological substances; Z88.1 Allergy status to other antibiotic agents; Z88.0 Allergy status to penicillin; Z91.048 Other nonmedicinal substance allergy status; Z91.030 Bee allergy status; Z79.899 Other long term (current) drug therapy; Z79.891 Long term (current) use of opiate analgesic; Z79.52 Long term (current) use of systemic steroids; Z85.3 Personal history of malignant neoplasm of breast; K21.9 Gastro-esophageal reflux disease without esophagitis; G43.909 Migraine, unspecified, not intractable, without status migrainosus; E11.9 Type 2 diabetes mellitus without complications; F17.210 Nicotine dependence, cigarettes, uncomplicated
CPT/HCPCS: 0241U; 74177; 80053; 83690; 85025; 96361; 96374-59; 96375; 96376; 99284-25; J1171; J2405; J7120; Q9967

== ENCOUNTER 2024-05-19 20:44 | Inpatient (IN) | payer OTHER ==
[~2024-05-19] VITALS: Ht 167.6 cm; Wt 53.7 kg
[~2024-05-19 20:44] MED LIST changes: -CREON DR 24,001 EACH PO; +CREON DR 36,001 EACH PO; +MAGNESIUM GLU27.5 MG PO
[2024-05-19] MEDS ORDERED: Albuterol 2.5 MG/3 ML VIAL INH SCH (20:55)
[2024-05-19] MEDS ORDERED: MethylPREDNISolone Sod Succ 125 MG Vial IV ONE (20:55)
[2024-05-19 20:58] LABS: pH Blood Venous 7.48 (7.34-7.37)
[2024-05-19 20:59] LABS: Base Excess Venous 4.3 mmol/L; Bicarbonate Venous 27.9 mmol/L (24.0-30.0); PCO2 Venous 37.4 mmHg (38-42)
[2024-05-19 21:02] LABS: BASOPHILS ABSOLUTE AUTO 0.05 K/mm3 (0.00-0.23); BASOPHILS PERCENT AUTO 1 % (0-2); EOSINOPHILS ABSOLUTE AUTO 0.18 K/mm3 (0.00-0.68); EOSINOPHILS PERCENT AUTO 2 % (0-6); Hemoglobin 13.2 g/dL (11.5-16.0); IMMATURE GRAN ABSOLUTE AUTO 0.02 K/mm3 (0.00-0.10); IMMATURE GRAN PERCENT AUTO 0 % (0-1); LYMPHOCYTES ABSOLUTE AUTO 2.12 K/mm3 (0.84-5.20); LYMPHOCYTES PERCENT AUTO 23 % (21-46); MONOCYTES ABSOLUTE AUTO 1.11 K/mm3 (0.16-1.47); MONOCYTES PERCENT AUTO 12 % (4-13); Mean Corpuscular HGB 27.9 pg (26.0-34.0); Mean Corpuscular Volume 85 fL (80-100); Mean Platelet Volume 10.2 fL (9.1-12.4); NEUTROPHILS ABSOLUTE AUTO 5.88 K/mm3 (1.96-9.15); NEUTROPHILS PERCENT AUTO 63 % (41-73); Platelet Count 227 K/mm3 (150-400); RDW Coefficient Variation 19.4 % (11.7-14.2); Red Blood Cell Count 4.73 M/mm3 (3.80-5.20); White Blood Cell Count 9.36 K/mm3 (4.00-11.30)
[2024-05-19] MEDS ORDERED: Ipratropium Bromide INH 0.02% 0.5 mg/2.5ML Vial INH SCH (21:05)
[2024-05-19 21:21] LABS: Bun/Creatinine Ratio 12.4 (12.0-20.0); Calcium, Blood 9.1 mg/dL (8.5-10.1); Creatinine, Blood 0.96 mg/dL (0.40-1.00); Potassium, Blood 4.4 mmol/L (3.5-5.5)
[2024-05-19 21:43] LABS: Influenza A, PCR NEGATIVE (NEGATIVE); Influenza B, PCR NEGATIVE (NEGATIVE); Resp Syncytial Virus, PCR NEGATIVE (NEGATIVE); SARS-Cov-2 (COVID-19) PCR, MMC NEGATIVE (NEGATIVE)
[2024-05-19] MEDS ORDERED: Doxycycline Hyclate 100 MG in Dextrose 5% 250 ML IV ONE (22:25)
[2024-05-19] MEDS ORDERED: FLU VACC TS2024-25(6MOS UP)/PF 45 MCG/0.5 ML SYRINGE IM ONE (23:40)
[2024-05-19] MEDS ORDERED: Acetaminophen 325 MG TABLET PO PRN (23:45)
[2024-05-19] MEDS ORDERED: Ipratropium/Albuterol SulF 2.5-0.5MG/3 ML Amp INH SCH (23:45)
[2024-05-20] MEDS ORDERED: ClonazePAM 0.5 MG Tab PO PRN (03:00)
[2024-05-20] MEDS ORDERED: Meloxicam 7.5 MG Tab PO PRN (03:00)
[2024-05-20] MEDS ORDERED: Morphine Sulfate 30 MG TabCR PO PRN (03:05)
[2024-05-20] MEDS ORDERED: OxyCODONE HCL 5 MG TAB PO PRN ×2 (03:05→13:10)
[2024-05-20] MEDS ORDERED: Mometasone/Formoterol MDI 100/5 mcg 13 GM INH SCH (03:25)
[2024-05-20 04:57] LABS: BASOPHILS ABSOLUTE AUTO 0.03 K/mm3 (0.00-0.23); BASOPHILS PERCENT AUTO 1 % (0-2); EOSINOPHILS ABSOLUTE AUTO 0.01 K/mm3 (0.00-0.68); EOSINOPHILS PERCENT AUTO 0 % (0-6); Hematocrit 41.9 % (33.0-51.0); Hemoglobin 14.1 g/dL (11.5-16.0); IMMATURE GRAN ABSOLUTE AUTO 0.01 K/mm3 (0.00-0.10); IMMATURE GRAN PERCENT AUTO 0 % (0-1); LYMPHOCYTES ABSOLUTE AUTO 1.29 K/mm3 (0.84-5.20); LYMPHOCYTES PERCENT AUTO 20 % (21-46); MONOCYTES ABSOLUTE AUTO 0.12 K/mm3 (0.16-1.47); MONOCYTES PERCENT AUTO 2 % (4-13); Mean Corpuscular HGB 28.5 pg (26.0-34.0); Mean Corpuscular HGB Conc 33.7 g/dL (31.5-36.5); Mean Corpuscular Volume 85 fL (80-100); Mean Platelet Volume 9.9 fL (9.1-12.4); NEUTROPHILS ABSOLUTE AUTO 4.93 K/mm3 (1.96-9.15); NEUTROPHILS PERCENT AUTO 77 % (41-73); Platelet Count 249 K/mm3 (150-400); RDW Coefficient Variation 19.6 % (11.7-14.2); RDW Standard Deviation 59.7 fL (35.1-46.3); Red Blood Cell Count 4.95 M/mm3 (3.80-5.20); White Blood Cell Count 6.39 K/mm3 (4.00-11.30)
[2024-05-20 05:30] LABS: Albumin/Globulin Ratio 0.6 (0.8-1.8); Bilirubin, Total 0.2 mg/dL (0.1-1.0); Bun/Creatinine Ratio 19.3 (12.0-20.0); Calcium, Blood 9.8 mg/dL (8.5-10.1); Creatinine, Blood 0.68 mg/dL (0.40-1.00); Globulin, Blood 4.9 g/dL (2.2-4.0); Magnesium, Blood 1.8 mg/dL (1.6-2.4); Potassium, Blood 4.7 mmol/L (3.5-5.5); Total Protein, Blood 7.9 g/dL (6.4-8.2)
[2024-05-20] MEDS ORDERED: Omeprazole 20 MG CapCR PO SCH (06:00)
[2024-05-20] MEDS ORDERED: Amylase/Lipase/Protease DR Cap 12,000 PO SCH (08:30)
[2024-05-20] MEDS ORDERED: Amylase/Lipase/Protease DR 20,000 PO SCH (08:45)
[2024-05-20] MEDS ORDERED: Cholecalciferol 1000 Unit Tablet (=25MCG) PO SCH (09:00)
[2024-05-20] MEDS ORDERED: Atorvastatin 40 MG Tab PO SCH (09:00)
[2024-05-20] MEDS ORDERED: Doxycycline Hyclate 100 MG in Dextrose 5% 250 ML IV SCH (09:00)
[2024-05-20] MEDS ORDERED: Ferrous Sulfate 325 MG Tab PO SCH (09:00)
[2024-05-20] MEDS ORDERED: Potassium Chloride 10 Meq Tablet SA PO SCH (09:00)
[2024-05-20] MEDS ORDERED: PredniSONE 20 MG Tab PO SCH (09:00)
[2024-05-20] MEDS ORDERED: Enoxaparin 40 MG/0.4 ML SYR SC SCH (09:00)
[2024-05-20] MEDS ORDERED: Lactobacil 2-S.Thermo-Bifido 1 1 Cap PO SCH (09:00)
[2024-05-20] MEDS ORDERED: Loratadine 10 MG Tab PO SCH (09:00)
[2024-05-20] MEDS ORDERED: Pregabalin 75 MG Cap PO SCH (09:00)
[2024-05-20] MEDS ORDERED: Baclofen 10 MG Tab PO SCH (09:00)
[2024-05-20] MEDS ORDERED: CloNIDine 0.1 MG Tab PO SCH (09:00)
[2024-05-20] MEDS ORDERED: DULoxetine HCL 60 MG Capsule DR PO SCH (09:00)
[2024-05-20] MEDS ORDERED: GuaiFENesin 600 MG TabCR PO SCH (09:00)
[2024-05-20 12:04] VITALS: BP 106/94
[2024-05-20] MEDS ORDERED: MORP15ER PO (12:28)
[2024-05-20] MEDS ORDERED: Insulin Pump Cartridge MISC SC SCH (14:15)
[2024-05-20 16:33] VITALS: BP 116/70
--- NOTE | 2024-05-20 18:03 | NUR ---
NEW ADMIT PT WAS A NEW ADMIT THIS AFTERNOON. SHE CAME TO PCU 20, REPORT RECIEVED FROM ESE ALFARO IN ER. PT IS A 1P SBA FOR TRANSFER. SHE IS A&OX4, AND CALLS APPROPRIATELY. THE PT HAS BEEN ON 2L NC TO HELP MAINTAIN SP02 >93%. SHE DENIES ANY SOB. SHE IS MEDICAL STATUS W/O TELE. PT BP STABLE. SHE IS A DIABETIC AND HAS A HOME INSULIN PUMP, SEE EMAR FOR INFORMATION. PT HOME INSULIN PUMP AGREEMENT SIGNED AND ON THE CHART. NO ACUTE EVENTS SINCE COMING TO THE UNIT. SEE NOTES FOR ANY UPDATES.
[2024-05-20 20:08] VITALS: BP 116/72
[2024-05-20] MEDS ORDERED: Morphine Sulfate 15 MG TABCR PO SCH (21:00)
[2024-05-20] MEDS ORDERED: Prazosin HCl 1 MG Cap PO SCH (21:00)
[2024-05-20 23:36] VITALS: BP 91/58
[2024-05-21 03:38] LABS: BASOPHILS ABSOLUTE AUTO 0.05 K/mm3 (0.00-0.23); BASOPHILS PERCENT AUTO 1 % (0-2); EOSINOPHILS ABSOLUTE AUTO 0.05 K/mm3 (0.00-0.68); EOSINOPHILS PERCENT AUTO 1 % (0-6); Hematocrit 41.9 % (33.0-51.0); IMMATURE GRAN ABSOLUTE AUTO 0.01 K/mm3 (0.00-0.10); IMMATURE GRAN PERCENT AUTO 0 % (0-1); LYMPHOCYTES ABSOLUTE AUTO 2.58 K/mm3 (0.84-5.20); LYMPHOCYTES PERCENT AUTO 44 % (21-46); MONOCYTES ABSOLUTE AUTO 0.87 K/mm3 (0.16-1.47); MONOCYTES PERCENT AUTO 15 % (4-13); Mean Corpuscular HGB 28.2 pg (26.0-34.0); Mean Corpuscular HGB Conc 33.4 g/dL (31.5-36.5); Mean Corpuscular Volume 84 fL (80-100); Mean Platelet Volume 10.7 fL (9.1-12.4); NEUTROPHILS ABSOLUTE AUTO 2.28 K/mm3 (1.96-9.15); NEUTROPHILS PERCENT AUTO 39 % (41-73); Platelet Count 232 K/mm3 (150-400); RDW Coefficient Variation 19.3 % (11.7-14.2); RDW Standard Deviation 59.1 fL (35.1-46.3); Red Blood Cell Count 4.97 M/mm3 (3.80-5.20); White Blood Cell Count 5.84 K/mm3 (4.00-11.30)
[2024-05-21 03:58] LABS: Bun/Creatinine Ratio 40.2 (12.0-20.0); Calcium, Blood 9.2 mg/dL (8.5-10.1); Creatinine, Blood 0.5 mg/dL (0.40-1.00); Potassium, Blood 4.1 mmol/L (3.5-5.5)
--- NOTE | 2024-05-21 05:28 | NUR ---
SHIFT SUMMARY: YOUSIF IS A&OX4. VSS, NO ACUTE EVENTS OVERNIGHT. SHE IS MAINTAINING O2 SATS >90% ON 3L VIA NC, TOLERATING PO INTAKE WELL, AND IS A STANDBY ASSIST TO THE BATHROOM. BP LOW, DISCUSSED WITH PT WHO STATES THIS IS BASELINE FOR HER, SHE HAS DENIED ANY DIZZINESS OR LIGHTHEADEDNESS THIS SHIFT. SHE REPORTS THAT SHE TAKES MS CONTIN 30 MG IN THE MORNING AND 15 MG AT BEDTIME AT HOME, WELL 300 MG OF LYRICA BID. SHE COMPLAINED OF NECK SPASMS WHEN SHE GOT UP TO THE BATHROOM THIS MORNING, K-PAD PROVIDED. IV TO LEFT WRIST PATENT. SHE SI LYING IN BED WITH THE CALL LIGHT IN REACH, BED IN LOWEST POSITION. WILL GIVE REPORT TO DAY SHIFT RN.
[2024-05-21 05:30] VITALS: BP 96/70
[2024-05-21 07:26] VITALS: BP 118/86
[2024-05-21] MEDS ORDERED: Morphine Sulfate 30 MG TabCR PO SCH (08:10)
[2024-05-21] MEDS ORDERED: Pregabalin 75 MG Cap PO SCH (09:00)
--- NOTE | 2024-05-21 09:00 | NUR ---
AM NOTE: PATIENT ALERT AND ORIENTED X4. DENIES NUMBNESS/TINGLING. PERRL, WEARING GLASSES. MOVING ALL EXTREMITIES. 1 PERSON ASSIST TO BATHROOM. COMPLAINS OF PANCREATITIS PAIN WELL NECK SORENESS. HOME PAIN MEDICATIONS ORDERED THIS AM. PAIN RELIEVED WITH PO MEDS AND HEATING PAD. MEDICAL STATUS NO TELE. HR 80'S. DENIES CHEST PAIN/PRESSURE/PALPITATIONS. NO EDEMA NOTED. IV ABX INFUSED. ON 3L NASAL CANNULA SATING 92-96%. INCREASED WORK OF BREATHING WITH EXCERTION AND PAIN. LUNGS SOUNDS COARSE WITH WHEEZING. RESPIRATORY IN FOR BREATHING TREATMENTS. OCCASIONAL HACKING COUGH. BOWEL TONES PRESENT. TOLERATING PO DIET. UP TO BATHROOM TO VOID. DENIES ABDOMINAL PAIN/NAUSEA. SKIN OVERALL C/D/I. CALLING FOR NEEDS. CALL LIGHT IN REACH.
[2024-05-21 11:24] VITALS: BP 111/69
[2024-05-21 16:35] VITALS: BP 119/90
--- NOTE | 2024-05-21 17:40 | NUR ---
SHIFT SUMMARY: NO ACUTE CHANGES. SEE PREVIOUS NOTE. REMAINS ALERT AND ORIENTED. VITAL SIGNS STABLE. ON 2L NASAL CANNULA. TOLERTING PO DIET. UP TO BATHROOM WITH SBA. IV ABX INFUSED. MEDICATED FOR PAIN THROUGHOUT SHIFT. EATING DINNER AT THIS TIME. DENIES NEEDS. CALL LIGHT IN REACH.
[2024-05-21 19:07] VITALS: BP 123/78
[2024-05-21] MEDS ORDERED: Morphine Sulfate 15 MG TABCR PO SCH (21:00)
[2024-05-22 07:23] VITALS: BP 107/75
--- NOTE | 2024-05-22 10:53 | NUR ---
AM NOTE: PATIENT ALERT AND ORIENTED X4. DENIES N/T. COMPLAINS OF CHRONIC PAIN, MEDICATED PER EMAR WITH GOOD RELIEF. UP TO BATHROOM WITH SBA. ON 2L NASAL CANNULA. LUNGS SOUNDS IMPROVED FROM YESTERDAY DAY SHIFT. PATIENT FEELING BACK TO BASELINE. DENIES CHEST PAIN/PRESSURE/PALPITATIONS. MEDICAL STATUS NO TELE. TOLERATING PO DIET. DENIES NAUSEA. VOIDING WNL. IV ABX INFUSED. POSSIBLE DISCHARGE THIS AFTERNOON. CALL LIGHT IN REACH. DENIES NEEDS.
[2024-05-22 11:18] VITALS: BP 117/77
[2024-05-22] MEDS ORDERED: DOXY100 PO (12:33)
[2024-05-22] MEDS ORDERED: PRED20 PO (12:33)
--- NOTE | 2024-05-22 13:43 | NUR ---
DISCHARGE: NO ACUTE CHANGES. THIS RN REVIEWED DISCHARGE INSTRUCTIONS WITH PATIENT. THIS RN DISCUSSED NEW MEDICATIONS, BORDER PATROL AGENT MEDS AT [facility], OXYGEN USE, SIGNS AND SYMPTOMS OF WHEN TO RETURN AND FOLLOW UP. PATIENT LEFT UNIT WITH HOME O2, DISCHARGE PACKET AND ALL PERSONAL BELONG VIA WHEELCHAIR.
== END 2024-05-22 13:34 | disposition home or self-care (01) | DRG 193 ==
LOC: ER 20:44 → ERHOLD 20:45 → PCU 05-20 08:44 → ERHOLD 05-20 08:44 → PCU 05-20 11:55
PROVIDERS: Emergency Medicine; Family Medicine; ADMIT Student in an Organized Health Care Education/Training Program
DX: J18.9 Pneumonia, unspecified organism (principal); J96.01 Acute respiratory failure with hypoxia; K86.1 Other chronic pancreatitis; J44.1 Chronic obstructive pulmonary disease with (acute) exacerbation; J44.0 Chronic obstructive pulmonary disease with (acute) lower respiratory infection; G89.4 Chronic pain syndrome; E11.9 Type 2 diabetes mellitus without complications; J43.9 Emphysema, unspecified; K21.9 Gastro-esophageal reflux disease without esophagitis; F17.210 Nicotine dependence, cigarettes, uncomplicated; F31.9 Bipolar disorder, unspecified; G43.909 Migraine, unspecified, not intractable, without status migrainosus; F43.10 Post-traumatic stress disorder, unspecified; Z98.51 Tubal ligation status; Z90.13 Acquired absence of bilateral breasts and nipples; Z90.710 Acquired absence of both cervix and uterus; Z90.722 Acquired absence of ovaries, bilateral; Z90.79 Acquired absence of other genital organ(s); Z98.890 Other specified postprocedural states; Z88.1 Allergy status to other antibiotic agents; Z88.8 Allergy status to other drugs, medicaments and biological substances; Z91.048 Other nonmedicinal substance allergy status; Z91.030 Bee allergy status; Z91.040 Latex allergy status; Z90.49 Acquired absence of other specified parts of digestive tract
CPT/HCPCS: 0241U; 36415; 71045; 80048; 80053; 82803; 82947; 83735; 83880; 84145; 84484; 85025; 85379; 93005; 93010; 94640; 94664; 94762; 96365; 96366; 96375; 99285-25; A9270; G0378; J1650; J2919; J7060; J7512

== ENCOUNTER 2024-08-07 04:59 | Emergency (ER) | payer OTHER ==
[~2024-08-07] VITALS: Ht 167.6 cm; Wt 54.4 kg
[2024-08-07 05:20] VITALS: BP 137/89
[2024-08-07] MEDS ORDERED: Ibuprofen 600 MG Tab PO ONE (05:20)
[2024-08-07] MEDS ORDERED: IBU600 MG PO (05:37)
== END 2024-08-07 05:48 | disposition other institution (70) ==
LOC: ER 04:59
DX: S60.221A Contusion of right hand, initial encounter (principal); K21.9 Gastro-esophageal reflux disease without esophagitis; G43.909 Migraine, unspecified, not intractable, without status migrainosus; J44.89 Other specified chronic obstructive pulmonary disease; E11.9 Type 2 diabetes mellitus without complications; F17.210 Nicotine dependence, cigarettes, uncomplicated; Z88.8 Allergy status to other drugs, medicaments and biological substances; Z88.1 Allergy status to other antibiotic agents; Z91.048 Other nonmedicinal substance allergy status; Z91.040 Latex allergy status; Z88.2 Allergy status to sulfonamides; Z91.030 Bee allergy status; Z79.899 Other long term (current) drug therapy; W01.190A Fall on same level from slipping, tripping and stumbling with subsequent striking against furniture, initial encounter
CPT/HCPCS: 73130; 99283-25; A9270

== ENCOUNTER → 2024-08-23 | Outpatient (CLI) | payer OTHER ==
[~2024-08-23] MED LIST changes: +IBU600 MG PO
[2024-08-23 17:48] LABS: BASOPHILS ABSOLUTE AUTO 0.05 K/mm3 (0.00-0.23); BASOPHILS PERCENT AUTO 1 % (0-2); EOSINOPHILS ABSOLUTE AUTO 0.29 K/mm3 (0.00-0.68); EOSINOPHILS PERCENT AUTO 3 % (0-6); Hematocrit 40.2 % (33.0-51.0); Hemoglobin 13.1 g/dL (11.5-16.0); IMMATURE GRAN ABSOLUTE AUTO 0.01 K/mm3 (0.00-0.10); IMMATURE GRAN PERCENT AUTO 0 % (0-1); LYMPHOCYTES ABSOLUTE AUTO 3.47 K/mm3 (0.84-5.20); LYMPHOCYTES PERCENT AUTO 34 % (21-46); MONOCYTES ABSOLUTE AUTO 0.94 K/mm3 (0.16-1.47); MONOCYTES PERCENT AUTO 9 % (4-13); Mean Corpuscular HGB Conc 32.6 g/dL (31.5-36.5); Mean Corpuscular Volume 86 fL (80-100); Mean Platelet Volume 12.3 fL (9.1-12.4); NEUTROPHILS ABSOLUTE AUTO 5.55 K/mm3 (1.96-9.15); NEUTROPHILS PERCENT AUTO 54 % (41-73); Platelet Count 338 K/mm3 (150-400); RDW Standard Deviation 51.9 fL (35.1-46.3); Red Blood Cell Count 4.68 M/mm3 (3.80-5.20); White Blood Cell Count 10.31 K/mm3 (4.00-11.30)
[2024-08-23 17:56] LABS: Magnesium, Blood 1.9 mg/dL (1.6-2.4)
[2024-08-23 18:07] LABS: Albumin, Blood 2.8 g/dL (3.4-5.0); Albumin/Globulin Ratio 0.6 (0.8-1.8); Bilirubin, Total 0.3 mg/dL (0.1-1.0); Bun/Creatinine Ratio 19.3 (12.0-20.0); Calcium, Blood 8.9 mg/dL (8.5-10.1); Creatinine, Blood 0.62 mg/dL (0.40-1.00); Globulin, Blood 4.8 g/dL (2.2-4.0); Potassium, Blood 5.7 mmol/L (3.5-5.5); Total Protein, Blood 7.6 g/dL (6.4-8.2)
== END ==
LOC: LAB SHORT 16:10 → LAB 16:10
PROVIDERS: Physician Assistant
DX: J44.1 Chronic obstructive pulmonary disease with (acute) exacerbation (principal); K85.90 Acute pancreatitis without necrosis or infection, unspecified; K86.1 Other chronic pancreatitis
CPT/HCPCS: 80053; 83735; 85025

== ENCOUNTER 2024-09-04 09:21 | Emergency (ER) | payer OTHER ==
[~2024-09-04] VITALS: Ht 167.6 cm; Wt 51.3 kg
[2024-09-04 09:35] VITALS: BP 110/69
[2024-09-04] MEDS ORDERED: CEPH500 PO (09:42)
== END 2024-09-04 09:46 | disposition home or self-care (01) ==
LOC: ER 09:21
DX: Q18.1 Preauricular sinus and cyst (principal); H66.42 Suppurative otitis media, unspecified, left ear; J45.909 Unspecified asthma, uncomplicated; F17.210 Nicotine dependence, cigarettes, uncomplicated; Z79.899 Other long term (current) drug therapy; Z91.030 Bee allergy status; Z91.040 Latex allergy status; Z88.8 Allergy status to other drugs, medicaments and biological substances; Z88.1 Allergy status to other antibiotic agents; Z91.048 Other nonmedicinal substance allergy status
CPT/HCPCS: 99282

== ENCOUNTER 2024-09-13 13:10 | Observation (INO) | payer OTHER ==
[~2024-09-13] VITALS: Ht 167.6 cm; Wt 51.3 kg
[2024-09-13] MEDS ORDERED: NS 1,000 ML IV SCH (14:05)
[2024-09-13] MEDS ORDERED: HYDROmorphone HCl/Pf 1MG SYR IV ONE (14:15)
[2024-09-13 14:17] LABS: Albumin/Globulin Ratio 0.6 (0.8-1.8); Bilirubin, Total 0.3 mg/dL (0.1-1.0); Bun/Creatinine Ratio 15.7 (12.0-20.0); Calcium, Blood 8.9 mg/dL (8.5-10.1); Creatinine, Blood 0.64 mg/dL (0.40-1.00); Potassium, Blood 4.1 mmol/L (3.5-5.5)
[2024-09-13 14:32] LABS: BASOPHILS ABSOLUTE AUTO 0.06 K/mm3 (0.00-0.23); BASOPHILS PERCENT AUTO 1 % (0-2); EOSINOPHILS ABSOLUTE AUTO 0.14 K/mm3 (0.00-0.68); EOSINOPHILS PERCENT AUTO 1 % (0-6); Hematocrit 39.1 % (33.0-51.0); Hemoglobin 13.1 g/dL (11.5-16.0); IMMATURE GRAN ABSOLUTE AUTO 0.03 K/mm3 (0.00-0.10); IMMATURE GRAN PERCENT AUTO 0 % (0-1); LYMPHOCYTES ABSOLUTE AUTO 3.13 K/mm3 (0.84-5.20); LYMPHOCYTES PERCENT AUTO 30 % (21-46); MONOCYTES ABSOLUTE AUTO 0.71 K/mm3 (0.16-1.47); MONOCYTES PERCENT AUTO 7 % (4-13); Mean Corpuscular HGB 27.1 pg (26.0-34.0); Mean Corpuscular HGB Conc 33.5 g/dL (31.5-36.5); Mean Corpuscular Volume 81 fL (80-100); Mean Platelet Volume 9.6 fL (9.1-12.4); NEUTROPHILS ABSOLUTE AUTO 6.25 K/mm3 (1.96-9.15); NEUTROPHILS PERCENT AUTO 61 % (41-73); Platelet Count 337 K/mm3 (150-400); RDW Coefficient Variation 17.8 % (11.7-14.2); RDW Standard Deviation 51.6 fL (35.1-46.3); Red Blood Cell Count 4.83 M/mm3 (3.80-5.20); White Blood Cell Count 10.32 K/mm3 (4.00-11.30)
[2024-09-13] MEDS ORDERED: FentaNYL Citrate 50 MCG/ML 2 ML Injection IV PRN (17:55)
[2024-09-13] MEDS ORDERED: Metoclopramide HCl 5MG / ML 2ML Vial IV PRN (17:55)
[2024-09-13] MEDS ORDERED: OxyCODONE HCL 5 MG TAB PO PRN (17:55)
[2024-09-13] MEDS ORDERED: Lactated Ringer's 1,000 ML IV SCH (17:55)
[2024-09-13] MEDS ORDERED: Insulin Human Lispro 100 Units/ML 3ML Syringe SC SCH (18:00)
[2024-09-13] MEDS ORDERED: Albuterol 2.5 MG/3 ML VIAL INH PRN (18:00)
[2024-09-13] MEDS ORDERED: Ondansetron HCl 2 MG / ML 2ML Vial IV PRN (18:00)
[2024-09-13] MEDS ORDERED: Mometasone/Formoterol MDI 200/5 mcg 13 GM INH SCH (18:10)
[2024-09-13] MEDS ORDERED: Amoxicillin/Clavulanate K 875 MG Tab PO SCH (19:00)
[2024-09-13] MEDS ORDERED: TOPI50 PO (20:00)
[2024-09-13] MEDS ORDERED: MONT10T PO (20:04)
[2024-09-13] MEDS ORDERED: Lactobacil 2-S.Thermo-Bifido 1 1 Cap PO SCH (21:00)
[2024-09-13 21:13] VITALS: BP 108/83
[2024-09-14 04:28] VITALS: BP 117/78
--- NOTE | 2024-09-14 06:03 | NUR ---
ER ADMIT AND SUMMARY: REPORT RECEIVED FROM DUSTY (PASTE UP ARTIST) AND PT T/F VIA [facility] TO ROOM 351 AT 2105. SHE WAS ORIENTED TO NEW ROOM AND CALL SYSTEM, IS A/OX4, AND INDEPENDENT IN ROOM. SHE CONT'S TO REPORT INTERMITTENT NAUSEA AND ABDO PAIN FROM PANCREATITIS W/PRN ZOFRAN, FENTANYL AND ROXICODONE RECEIVED FOR GOOD EFFECT. LR COMMENCED AT 100 ML/HR PER EMAR AND PT TOLERATED FULL LIQUID DIET IN SMALL AMTS AT A TIME. GI PANEL COLLECTION STILL NEEDED BUT PT HASN'T HAD ANY BM'S SINCE ARRIVAL TO UNIT. SHE'S ON 2L O2 VIA NC W/SPO2 WNL WA AND WORE BIPAP (PER HOME) W/O2 BLEED IN AT HS W/CONT BIOX INTACT, RA IS BASELINE. NO ACUTE CHANGES, VSS/AFEBRILE. WILL MONITOR AND REPORT TO DAY RN.
[2024-09-14] MEDS ORDERED: ClonazePAM 0.5 MG Tab PO PRN (06:35)
[2024-09-14] MEDS ORDERED: DULoxetine HCL 60 MG Capsule DR PO SCH (06:35)
[2024-09-14] MEDS ORDERED: Baclofen 10 MG Tab PO SCH (06:35)
[2024-09-14 06:38] LABS: Bun/Creatinine Ratio 10.2 (12.0-20.0); Calcium, Blood 8.3 mg/dL (8.5-10.1); Creatinine, Blood 0.59 mg/dL (0.40-1.00); Magnesium, Blood 1.6 mg/dL (1.6-2.4); Potassium, Blood 3.7 mmol/L (3.5-5.5)
[2024-09-14 07:48] VITALS: BP 126/83
[2024-09-14] MEDS ORDERED: Morphine Sulfate 30 MG TabCR PO SCH (09:00)
[2024-09-14] MEDS ORDERED: Enoxaparin 40 MG/0.4 ML SYR SC SCH (09:00)
[2024-09-14 13:54] LABS: Campylobacter Sp Not Detected (NOT DETECT); Cryptosporidium Not Detected (NOT DETECT); Cyclospora Cayetanensis Not Detected (NOT DETECT); E. Coli O157 Not Detected (NOT DETECT); Entamoeba Histolytica Not Detected (NOT DETECT); Enteroaggregative E. coli-EAEC Not Detected (NOT DETECT); Enteropathogenic E. coli-EPEC Not Detected (NOT DETECT); Enterotoxigenic E. coli-ETEC Not Detected (NOT DETECT); Plesiomonas Shigelloides Not Detected (NOT DETECT); Salmonella Sp Not Detected (NOT DETECT); Shiga Toxin-prod E. coli-STEC Not Detected (NOT DETECT); Shigella/Enteroin E. coli-EIEC Not Detected (NOT DETECT); Vibrio Cholerae Not Detected (NOT DETECT); Vibrio Sp Not Detected (NOT DETECT); Yersinia Enterocolitica Not Detected (NOT DETECT)
[2024-09-14 13:55] LABS: Adenovirus F 40/41 Not Detected (NOT DETECT); Astrovirus Not Detected (NOT DETECT); Giardia Lamblia Not Detected (NOT DETECT); Norovirus GI/GII Not Detected (NOT DETECT); Rotavirus A Not Detected (NOT DETECT); Sapovirus Not Detected (NOT DETECT)
--- NOTE | 2024-09-14 13:59 | NUR ---
Upon receiving a referral for spiritual care, I visited the patient. She tells me about her medical history and about her current medical condition. She then talks at length about her spouse (who is disabled and blind), her 3 grandchildren (who she is raising and is the only lokie driver in the home), and about her the complication and stress her medical problems place on her home. She shares about a conversion type of experience that happened when she was battling breast cancer when she was 35 y/o. She explains how her irma has empowered her and sustained her in her challenging circumstances from then until today. I normalized her experience and provided therapeutic istning and payer. The patient responded well and showed signs of an elevated mood.
[2024-09-14] MEDS ORDERED: AMOX500 PO (14:54)
[2024-09-14] MEDS ORDERED: DULERA 100 MCG/13 GM INH (14:58)
--- NOTE | 2024-09-14 15:38 | NUR ---
PT DISCHARGED WITH DC INSTRUCTIONS. SENT HOME WITH BELONGINGS. STAFF ESCORT WHEELCHAIR OUT TO CAR FOR DC HOME. PT AMBULATORY AND TOLERATING FULL LIQ AND CLEARS, PAIN CONTROLLED.
[2024-09-14] MEDS ORDERED: Morphine Sulfate 15 MG TABCR PO SCH (19:00)
== END 2024-09-14 17:02 | disposition home or self-care (01) ==
LOC: ER 13:10 → MEDS 17:51
PROVIDERS: Emergency Medicine; Internal Medicine; Nurse Practitioner Acute Care; ADMIT Internal Medicine
DX: G89.4 Chronic pain syndrome (principal); R10.10 Upper abdominal pain, unspecified; E11.9 Type 2 diabetes mellitus without complications; J44.9 Chronic obstructive pulmonary disease, unspecified; K86.1 Other chronic pancreatitis; K21.9 Gastro-esophageal reflux disease without esophagitis; E86.1 Hypovolemia; E87.1 Hypo-osmolality and hyponatremia; I10 Essential (primary) hypertension; H66.92 Otitis media, unspecified, left ear; F17.210 Nicotine dependence, cigarettes, uncomplicated; Z85.3 Personal history of malignant neoplasm of breast; Z79.2 Long term (current) use of antibiotics; Z79.891 Long term (current) use of opiate analgesic; Z79.899 Other long term (current) drug therapy; Z88.1 Allergy status to other antibiotic agents; Z88.2 Allergy status to sulfonamides; Z88.8 Allergy status to other drugs, medicaments and biological substances; Z91.030 Bee allergy status; Z91.040 Latex allergy status; Z91.048 Other nonmedicinal substance allergy status; Z98.890 Other specified postprocedural states
CPT/HCPCS: 36415; 80048; 80053; 82947; 83690; 83735; 85025; 87507; 94640; 94660; 94664; 94762; 96361; 96374; 99285-25; A9270; G0378; J1171; J1650; J2405; J2765; J3010; J7030; J7120

== ENCOUNTER 2024-12-03 11:27 | Emergency (ER) | payer OTHER ==
[~2024-12-03] VITALS: Ht 167.6 cm; Wt 49.4 kg
[~2024-12-03 11:27] MED LIST changes: +TOPI50 PO
[2024-12-03 11:45] VITALS: BP 151/96
[2024-12-03 12:39] LABS: BASOPHILS ABSOLUTE AUTO 0.05 K/mm3 (0.00-0.23); BASOPHILS PERCENT AUTO 0 % (0-2); EOSINOPHILS ABSOLUTE AUTO 0.06 K/mm3 (0.00-0.68); EOSINOPHILS PERCENT AUTO 1 % (0-6); Hematocrit 42.3 % (33.0-51.0); Hemoglobin 13.8 g/dL (11.5-16.0); IMMATURE GRAN ABSOLUTE AUTO 0.03 K/mm3 (0.00-0.10); IMMATURE GRAN PERCENT AUTO 0 % (0-1); LYMPHOCYTES ABSOLUTE AUTO 2.91 K/mm3 (0.84-5.20); LYMPHOCYTES PERCENT AUTO 24 % (21-46); MONOCYTES ABSOLUTE AUTO 0.85 K/mm3 (0.16-1.47); MONOCYTES PERCENT AUTO 7 % (4-13); Mean Corpuscular HGB Conc 32.6 g/dL (31.5-36.5); Mean Corpuscular Volume 82 fL (80-100); NEUTROPHILS ABSOLUTE AUTO 8.14 K/mm3 (1.96-9.15); NEUTROPHILS PERCENT AUTO 68 % (41-73); NRBC ABSOLUTE 0.00 K/mm3 (0.00-0.02); NRBC Auto 0.0 /100 WBC (0.0-0.2); Platelet Count 352 K/mm3 (150-400); RDW Coefficient Variation 20.7 % (11.7-14.2); RDW Standard Deviation 60.8 fL (35.1-46.3)
[2024-12-03 12:47] LABS: Alanine Aminotransfer (ALT/SGP 85.0 U/L (12-78); Albumin, Blood 3.2 g/dL (3.4-5.0); Albumin/Globulin Ratio 0.6 (0.8-1.8); Anion Gap 5.0 mmol/L (3-11); Aspartate Aminotrans (AST/SGOT 115.0 U/L (12-37); Bilirubin, Total 0.2 mg/dL (0.1-1.0); Blood Urea Nitrogen 11.0 mg/dL (8-24); CO2, Blood 29.0 mmol/L (21-32); Calcium, Blood 9.3 mg/dL (8.5-10.1); Chloride, Blood 103.0 mmol/L (98-108); Creatinine, Blood 0.55 mg/dL (0.40-1.00); Globulin, Blood 5.0 g/dL (2.2-4.0); Glucose, Blood 128.0 mg/dL (70-99); Magnesium, Blood 1.5 mg/dL (1.6-2.4); Potassium, Blood 3.6 mmol/L (3.5-5.5); Sodium, Blood 133.0 mmol/L (136-145); Total Protein, Blood 8.2 g/dL (6.4-8.2)
[2024-12-03] MEDS ORDERED: NS 1,000 ML IV SCH (14:30)
[2024-12-03] MEDS ORDERED: HYDROmorphone HCl/Pf 1MG SYR IV ONE ×2 (14:35→16:40)
[2024-12-03] MEDS ORDERED: Ondansetron HCl 2 MG / ML 2ML Vial IV ONE (14:35)
[2024-12-03 17:02] LABS: Source, Urine Clean Catch
[2024-12-03 17:10] LABS: Bilirubin, Urine Neg (Neg); Glucose Qualitative, Urine Neg (Neg); Ketones, Urine Neg (Neg); Leukocyte Esterase, Urine Neg (Neg); Protein, Urine Neg (Neg); Specific Gravity, Urine 1.005 (1.003-1.022); Urobilinogen, Urine NORM (Normal)
[2024-12-03 17:17] LABS: Color, Urine Pale Yellow (P-Yellow)
== END 2024-12-03 17:08 | disposition home or self-care (01) ==
LOC: ER 11:27
PROVIDERS: Emergency Medicine; Physician Assistant
DX: R10.9 Unspecified abdominal pain (principal); K21.9 Gastro-esophageal reflux disease without esophagitis; J45.909 Unspecified asthma, uncomplicated; E11.9 Type 2 diabetes mellitus without complications; F17.210 Nicotine dependence, cigarettes, uncomplicated; Z79.899 Other long term (current) drug therapy; Z88.1 Allergy status to other antibiotic agents; Z91.048 Other nonmedicinal substance allergy status; Z88.8 Allergy status to other drugs, medicaments and biological substances; Z91.030 Bee allergy status
CPT/HCPCS: 74176; 80053; 81003; 83690; 83735; 85025; 96361; 96374; 96375; 96376; 99284-25; J1171; J2405; J7030

== ENCOUNTER 2024-12-20 13:20 | Day surgery (SDC) | payer OTHER ==
[~2024-12-20] VITALS: Ht 167.6 cm; Wt 47.8 kg
[~2024-12-20 13:20] MED LIST changes: +Glycopyrrolate 0.2 MG/ML 1MLVIAL ONE; +Ondansetron HCl 2 MG / ML 2ML Vial ONE; +ePHEDrine Sulfate 50 MG/ML 1ML Injection ONE
[2024-12-20] MEDS ORDERED: POTA10T (13:42)
[2024-12-20] MEDS ORDERED: MAGNESIUM OXID500 MG (13:42)
[2024-12-20] MEDS ORDERED: FERSU300 (13:43)
[2024-12-20] MEDS ORDERED: CLON.5 (13:43)
[2024-12-20] MEDS ORDERED: LORA10ER (13:43)
[2024-12-20] MEDS ORDERED: ATOR40TA (13:44)
[2024-12-20] MEDS ORDERED: ADMELOG100 UNIT/2 (13:45)
[2024-12-20] MEDS ORDERED: MORP30 (13:45)
[2024-12-20] MEDS ORDERED: TRELEGY ELLIPT1 EACH (13:46)
[2024-12-20] MEDS ORDERED: OXYC10ER (13:46)
[2024-12-20] MEDS ORDERED: BREZTRI AEROS10.7 GM (13:47)
[2024-12-20 16:43] VITALS: BP 114/82
== END 2024-12-20 15:12 | disposition home or self-care (01) ==
LOC: ORSCSDS 13:20
PROVIDERS: Internal Medicine Gastroenterology
PROC: 0DB68ZX Excision of Stomach, Via Natural or Artificial Opening Endoscopic, Diagnostic (ICD-10-PCS; principal; 2024-12-20 15:30)
DX: R13.10 Dysphagia, unspecified (principal); Z85.3 Personal history of malignant neoplasm of breast; J44.9 Chronic obstructive pulmonary disease, unspecified; F31.9 Bipolar disorder, unspecified; K21.9 Gastro-esophageal reflux disease without esophagitis; I10 Essential (primary) hypertension; E78.5 Hyperlipidemia, unspecified; F43.10 Post-traumatic stress disorder, unspecified; E11.9 Type 2 diabetes mellitus without complications; Z79.4 Long term (current) use of insulin; Z79.899 Other long term (current) drug therapy
CPT/HCPCS: 82947; 88305; 88342; J0461; J2003; J2405; J2704

== ENCOUNTER 2024-12-22 10:12 | Emergency (ER) | payer OTHER ==
[~2024-12-22] VITALS: Ht 167.6 cm; Wt 47.6 kg
[~2024-12-22 10:12] MED LIST changes: +ADMELOG100 UNIT/2; +ATOR40TA; +BREZTRI AEROS10.7 GM; +CLON.5; +FERSU300; -Glycopyrrolate 0.2 MG/ML 1MLVIAL ONE; +LORA10ER; +MAGNESIUM OXID500 MG; +MORP30; +OXYC10ER; -Ondansetron HCl 2 MG / ML 2ML Vial ONE; +POTA10T; +TRELEGY ELLIPT1 EACH; -ePHEDrine Sulfate 50 MG/ML 1ML Injection ONE
[2024-12-22] MEDS ORDERED: HYDROmorphone HCl/Pf 1MG SYR IV ONE ×2 (10:35→14:35)
[2024-12-22] MEDS ORDERED: Ondansetron HCl 2 MG / ML 2ML Vial IV ONE (10:35)
[2024-12-22 11:08] LABS: BASOPHILS ABSOLUTE AUTO 0.08 K/mm3 (0.00-0.23); BASOPHILS PERCENT AUTO 1 % (0-2); EOSINOPHILS ABSOLUTE AUTO 0.09 K/mm3 (0.00-0.68); EOSINOPHILS PERCENT AUTO 1 % (0-6); Hematocrit 42.2 % (33.0-51.0); Hemoglobin 13.9 g/dL (11.5-16.0); IMMATURE GRAN ABSOLUTE AUTO 0.04 K/mm3 (0.00-0.10); IMMATURE GRAN PERCENT AUTO 0 % (0-1); LYMPHOCYTES ABSOLUTE AUTO 2.39 K/mm3 (0.84-5.20); LYMPHOCYTES PERCENT AUTO 19 % (21-46); MONOCYTES ABSOLUTE AUTO 0.76 K/mm3 (0.16-1.47); MONOCYTES PERCENT AUTO 6 % (4-13); Mean Corpuscular HGB Conc 32.9 g/dL (31.5-36.5); Mean Corpuscular Volume 82 fL (80-100); NEUTROPHILS ABSOLUTE AUTO 9.48 K/mm3 (1.96-9.15); NEUTROPHILS PERCENT AUTO 74 % (41-73); NRBC ABSOLUTE 0.00 K/mm3 (0.00-0.02); NRBC Auto 0.0 /100 WBC (0.0-0.2); Platelet Count 331 K/mm3 (150-400); RDW Coefficient Variation 20.5 % (11.7-14.2); RDW Standard Deviation 61.1 fL (35.1-46.3)
[2024-12-22 12:36] LABS: Alanine Aminotransfer (ALT/SGP 132.0 U/L (12-78); Albumin, Blood 3.5 g/dL (3.4-5.0); Albumin/Globulin Ratio 0.6 (0.8-1.8); Anion Gap 10.0 mmol/L (3-11); Aspartate Aminotrans (AST/SGOT 79.0 U/L (12-37); Bilirubin, Total 0.3 mg/dL (0.1-1.0); Blood Urea Nitrogen 8.0 mg/dL (8-24); CO2, Blood 25.0 mmol/L (21-32); Calcium, Blood 9.6 mg/dL (8.5-10.1); Chloride, Blood 103.0 mmol/L (98-108); Creatinine, Blood 0.61 mg/dL (0.40-1.00); Globulin, Blood 5.7 g/dL (2.2-4.0); Glucose, Blood 94.0 mg/dL (70-99); Magnesium, Blood 1.5 mg/dL (1.6-2.4); Potassium, Blood 3.8 mmol/L (3.5-5.5); Sodium, Blood 134.0 mmol/L (136-145); Total Protein, Blood 9.2 g/dL (6.4-8.2)
[2024-12-22] MEDS ORDERED: Mag Sulfate 1 GM/D5% 100ML 100 ML IV ONE (12:40)
[2024-12-22 15:30] VITALS: BP 119/74
== END 2024-12-22 15:45 | disposition home or self-care (01) ==
LOC: ER 10:12
PROVIDERS: Emergency Medicine
DX: E83.42 Hypomagnesemia (principal); K86.1 Other chronic pancreatitis; D64.9 Anemia, unspecified; E11.9 Type 2 diabetes mellitus without complications; J44.89 Other specified chronic obstructive pulmonary disease; K21.9 Gastro-esophageal reflux disease without esophagitis; F17.210 Nicotine dependence, cigarettes, uncomplicated; Z91.030 Bee allergy status; Z88.1 Allergy status to other antibiotic agents; Z88.8 Allergy status to other drugs, medicaments and biological substances; Z79.4 Long term (current) use of insulin; Z79.51 Long term (current) use of inhaled steroids; Z79.899 Other long term (current) drug therapy
CPT/HCPCS: 80053; 82947; 83735; 85025; 96365; 96375; 96376; 99283-25; J1171; J2405; J3475

== ENCOUNTER 2025-02-23 13:13 | Emergency (ER) | payer OTHER ==
[~2025-02-23] VITALS: Ht 167.6 cm; Wt 47.6 kg
[2025-02-23 14:30] LABS: BASOPHILS ABSOLUTE AUTO 0.08 K/mm3 (0.00-0.23); BASOPHILS PERCENT AUTO 1 % (0-2); EOSINOPHILS ABSOLUTE AUTO 0.17 K/mm3 (0.00-0.68); EOSINOPHILS PERCENT AUTO 1 % (0-6); Hematocrit 41.1 % (33.0-51.0); Hemoglobin 13.3 g/dL (11.5-16.0); IMMATURE GRAN ABSOLUTE AUTO 0.03 K/mm3 (0.00-0.10); IMMATURE GRAN PERCENT AUTO 0 % (0-1); LYMPHOCYTES ABSOLUTE AUTO 2.49 K/mm3 (0.84-5.20); LYMPHOCYTES PERCENT AUTO 20 % (21-46); MONOCYTES ABSOLUTE AUTO 0.87 K/mm3 (0.16-1.47); MONOCYTES PERCENT AUTO 7 % (4-13); Mean Corpuscular HGB Conc 32.4 g/dL (31.5-36.5); Mean Corpuscular Volume 83 fL (80-100); NEUTROPHILS ABSOLUTE AUTO 8.56 K/mm3 (1.96-9.15); NEUTROPHILS PERCENT AUTO 70 % (41-73); NRBC ABSOLUTE 0.00 K/mm3 (0.00-0.02); NRBC Auto 0.0 /100 WBC (0.0-0.2); Platelet Count 311 K/mm3 (150-400); RDW Coefficient Variation 19.0 % (11.7-14.2); RDW Standard Deviation 57.3 fL (35.1-46.3)
[2025-02-23 14:44] LABS: Alanine Aminotransfer (ALT/SGP 48.0 U/L (12-78); Albumin, Blood 3.2 g/dL (3.4-5.0); Albumin/Globulin Ratio 0.6 (0.8-1.8); Anion Gap 7.0 mmol/L (3-11); Aspartate Aminotrans (AST/SGOT 35.0 U/L (12-37); Bilirubin, Total 0.4 mg/dL (0.1-1.0); Blood Urea Nitrogen 11.0 mg/dL (8-24); CO2, Blood 26.0 mmol/L (21-32); Calcium, Blood 9.7 mg/dL (8.5-10.1); Chloride, Blood 104.0 mmol/L (98-108); Creatinine, Blood 0.51 mg/dL (0.40-1.00); Globulin, Blood 5.2 g/dL (2.2-4.0); Glucose, Blood 186.0 mg/dL (70-99); Potassium, Blood 3.9 mmol/L (3.5-5.5); Sodium, Blood 133.0 mmol/L (136-145); Total Protein, Blood 8.4 g/dL (6.4-8.2)
[2025-02-23] MEDS ORDERED: HYDROmorphone HCl/Pf 1MG SYR IV ONE ×2 (17:15→18:00)
[2025-02-23] MEDS ORDERED: Albuterol 2.5 MG/3 ML VIAL INH SCH (17:15)
[2025-02-23] MEDS ORDERED: NS 1,000 ML IV SCH (18:00)
[2025-02-23 18:02] LABS: Prothrombin Time Results 11.0 Sec (9.7-11.5)
[2025-02-23 18:25] LABS: Influenza A, PCR NEGATIVE (NEGATIVE); Influenza B, PCR NEGATIVE (NEGATIVE); Resp Syncytial Virus, PCR NEGATIVE (NEGATIVE); SARS-Cov-2 (COVID-19) PCR, MMC NEGATIVE (NEGATIVE)
[2025-02-23 18:42] LABS: Ferritin, Serum 42.0 ng/mL (8-252); Thyroid Stimulating Hormone 3.67 uIU/mL (0.360-4.800); Total Iron Binding Capacity 347.0 ug/dL (250-450)
[2025-02-23 18:45] VITALS: BP 123/79
[2025-02-23] MEDS ORDERED: AMOCLA875 PO (19:02)
[2025-02-23] MEDS ORDERED: PRED20 PO (19:02)
[2025-02-26 13:22] LABS: HBV CORE ANTIBODIES,TOTAL Negative (Negative)
[2025-02-26 13:33] LABS: HEPATITIS A ANTIBODIES, TOTAL Positive (Negative)
[2025-02-26 23:43] LABS: ANTI-NUCLEAR AB ANA,IGG ELISA None Detected (None Detected)
[2025-02-27 08:08] LABS: ALPHA-1-ANTITRYPSIN 135 mg/dL (90-200)
[2025-02-27 12:30] LABS: HEPATITIS C AB CIA INTERP Negative (Negative); HEPATITIS C ANTIBODY CIA INDEX <0.02 IV
== END 2025-02-23 19:29 | disposition home or self-care (01) ==
LOC: ER 13:13
PROVIDERS: Emergency Medicine; Student in an Organized Health Care Education/Training Program
DX: J44.1 Chronic obstructive pulmonary disease with (acute) exacerbation (principal); K85.90 Acute pancreatitis without necrosis or infection, unspecified; J32.9 Chronic sinusitis, unspecified; Z79.899 Other long term (current) drug therapy; F17.210 Nicotine dependence, cigarettes, uncomplicated; Z91.030 Bee allergy status
CPT/HCPCS: 71046; 74177; 80053; 82103; 82728; 83540; 83550; 83690; 84443; 85025; 85610; 86038; 86704; 86708; 86803; 87637; 96361; 96374-59; 96376; 99284-25; A9270; J1171; J7030; J7512; Q9967